=== PATIENT | male | born 1960 | race African-American/Black ===

== ENCOUNTER 2016-12-12 10:30 | Observation (INO) ==
[2016-12-12] MEDS ORDERED: levoFLOXacin 750 MG TABLET PO ONE (10:32)
[2016-12-12] MEDS ORDERED: Ipratropium/Albuterol Neb 3 ML IH ONE (10:32)
[2016-12-12] MEDS ORDERED: Ondansetron 4 MG/2 ML VIAL IVP ONE (10:33)
[2016-12-12] MEDS ORDERED: 0.9 % Sodium Chloride 1,000 ML IVC ONE (10:34)
[2016-12-12 11:27] LABS: Basophils # 0.1 K/mcL (0.0-0.2); Basophils % 0.5 %; Eosinophils # 0.3 K/mcL (0.0-0.6); Eosinophils % 2.1 %; Hematocrit 43.8 % (37.5-50.1); Hemoglobin 14.9 g/dL (12.9-16.9); Immature Granulocytes % 0.3 % (0-4); Lymphocytes # 1.4 K/mcL (0.6-4.6); Lymphocytes % 9.8 %; Mean Corpuscular Hemoglobin 28.6 pg (28.0-33.3); Mean Corpuscular Volume 84.1 fL (83.0-100.0); Mean Platelet Volume 9.9 fL (9.4-12.4); Monocytes # 1.3 K/mcL (0.0-1.3); Monocytes % 8.7 %; Neutrophils # 11.4 K/mcL (1.6-8.9); Platelet Count 284 K/mcL (140-400); Red Blood Count 5.21 M/mcL (4.19-5.50); Red Cell Distribution Width 13.4 % (11.5-14.5); Segmented Neutrophils % 78.6 %
--- NOTE | 2016-12-12 11:30 | Emergency Department Note ---
Disposition Clinical Impression: Bronchitis Chest pain Qualifiers: Chest pain type: unspecified Qualified Code(s): R07.9 - Chest pain, unspecified Disposition: Admitted As Inpatient Condition: Good Time of Disposition: 12:02 General Adult HPI - General Chief complaint: ED Chest Pain Stated complaint: Chest Pain Time Seen by Provider: 12/12/16 10:31 Source: patient, EMS Mode of arrival: EMS Limitations: altered mental status Nursing Notes Reviewed: Yes Vital Signs Reviewed: Yes - History of Present Illness HPI Narrative: 56-year-old male presenting to the emergency department from urgent care for chief complaint of nausea, vomiting and chest pain. History is limited due to patient's altered mental status which is his baseline. Patient does have director social in the room with him who is providing majority of the history. Patient states he has been feeling ill with flulike symptoms of cough nausea vomiting and diffuse myalgia for approximately one week. He has been having intermittent chest pain during this time as well. He got brought to urgent care today when his chest pain got acutely worse and was diaphoretic. Urgent care and transferred him here for cardiac rule out. At this time patient is not having any chest pain or shortness of breath. He does disclose productive cough and subjective fevers but has not taken his temperature at home. Pain Scale: 1 - Related Data Home Medications Medication Instructions Recorded Confirmed Fluphenazine [Prolixin] 10 mg PO HS 08/13/15 12/12/16 [place] Carbonate 300 mg PO TID 08/13/15 12/12/16 OLANZapine [Zyprexa] 10 mg PO TID 08/13/15 12/12/16 OLANZapine [Zyprexa] 20 mg PO HS 08/13/15 12/12/16 Insulin ASPART [Novolog Flexpen] 4 - 8 unit SQ TID PRN 12/12/16 12/12/16 Insulin DETEMIR [Levemir Flextouch] 40 unit SQ BID 12/12/16 12/12/16 Previous Rx's Medication Instructions Recorded Atorvastatin [Lipitor] 40 mg PO HS #30 tablet 08/16/15 Allergies Allergy/AdvReac Type Severity Reaction Status Date / Time No Known Allergies Allergy Verified 08/13/15 19:58 All systems ED: reviewed and negative except as stated. Constitutional: Reports: fever, chills. Denies: weakness Eyes: Reports: as per HPI ENT ED: Reports: as per HPI Cardiovascular: Reports: chest pain. Denies: palpitations, dyspnea on exertion Respiratory: Reports: cough. Denies: dyspnea, wheezes, hemoptysis Gastrointestinal: Reports: nausea, vomiting. Denies: abdominal pain Genitourinary: Reports: as per HPI Musculoskeletal: Reports: as per HPI Integumentary: Denies: rash, abrasion, lesions Neurological: Denies: weakness, numbness, paresthesias Psychiatric: Reports: as per HPI Endocrine: Reports: as per HPI Hematological/Lymphatic: Reports: as per HPI Allergic/Immunologic: Reports: as per HPI Past Medical History - Past Medical History Attestation: Yes The following information was validated with the patient. Medical history: Reports: no medical history Surgical history: Reports: no surgical history Psychiatric history: Reports: schizophrenia, other - Social History Smoking Status: Current every day smoker Smokeless Tobacco Status: No Alcohol use: Reports: none Drug use: Reports: none Physical Exam - General Limitations: altered mental status General appearance: alert, in no apparent distress - Head Head exam: atraumatic, normocephalic, normal inspection - Eye Eye exam: Present: normal appearance. Absent: scleral icterus, conjunctival injection - ENT ENT exam: normal exam, normal oropharynx, mucous membranes moist - Chest Chest inspection: Present: normal inspection, symmetric chest wall rise. Absent : tenderness, rash - Respiratory Respiratory exam: Present: normal lung sounds bilaterally. Absent: respiratory distress, wheezes, stridor - Cardiovascular Cardiovascular exam: Present: normal rhythm, tachycardia, normal heart sounds - Abdominal Exam Abdominal exam: Present: soft, Non-Tender. Absent: distention, guarding, rebound - Extremities Exam Extremities exam: Present: normal inspection, full ROM - Neurological Exam Neurological exam: Present: alert, other (Patient oriented to himself this is baseline for the patient according to director social) - Psychiatric Psychiatric exam: Present: normal affect, anxious - Skin Skin exam: Present: warm, intact Course Course Narrative: 56-year-old male presenting from urgent care for chief complaint of nausea vomiting and diffuse myalgia for 1 week along with chest pain. Chest pain has been intermittent but today he became acutely diaphoretic at urgent care. We will perform a chest pain rule out with troponin, CBC, BMP and EKG. We will provide the patient with breathing treatment and one dose of antibiotics at this time. Disposition pending lab results. - Reevaluation(s) Reevaluation #1: Initial lab work including troponin within normal limits. Patient still having intermittent chest pain. Nitropaste was given. Decision to admit the patient for chest pain rule out. Dr. Lee the hospitalist accepts the patient. Time: 12:02 Vital Signs Temperature 98.7 F 12/12/16 10:31 Pulse Rate 100 12/12/16 10:31 Respiratory Rate 18 12/12/16 10:31 Blood Pressure 156/97 12/12/16 10:31 O2 Sat by Pulse Oximetry 98 12/12/16 10:31 Temperature 99.1 F 12/12/16 19:04 Pulse Rate 107 12/12/16 19:04 Respiratory Rate 16 12/12/16 19:04 Blood Pressure 135/84 12/12/16 19:04 O2 Sat by Pulse Oximetry 94 12/12/16 19:04 Oxygen Delivery Oxygen Delivery Room Air Medical Decision Making - Medical Records Medical records reviewed: Yes I reviewed the patient's medical records. - Lab Data Lab results reviewed: Yes I reviewed the patient's lab results. Result diagrams: 12/12/16 10:42 12/12/16 10:42 Lab Results 12/12/16 12/12/16 12/12/16 Range/Units 10:42 10:42 10:42 WBC 14.4 H (4.3-11.1) K/mcL RBC 5.21 (4.19-5.50) M/mcL Hgb 14.9 (12.9-16.9) g/dL Hct 43.8 (37.5-50.1) % MCV 84.1 (83.0-100.0) fL MCH 28.6 (28.0-33.3) pg MCHC 34.0 (31.6-35.5) g/dL RDW 13.4 (11.5-14.5) % Plt Count 284 (140-400) K/mcL MPV 9.9 (9.4-12.4) fL Immature Gran % 0.3 (0-4) % Seg Neutrophils % 78.6 % Lymphocytes % 9.8 % Monocytes % 8.7 % Eosinophils % 2.1 % Basophils % 0.5 % Neutrophils # 11.4 H (1.6-8.9) K/mcL Lymphocytes # 1.4 (0.6-4.6) K/mcL Monocytes # 1.3 (0.0-1.3) K/mcL Eosinophils # 0.3 (0.0-0.6) K/mcL Basophils # 0.1 (0.0-0.2) K/mcL Sodium 137 (136-145) mEq/L Potassium 4.3 (3.5-4.5) mEq/L Chloride 106 (98-109) mEq/L Carbon Dioxide 24 (19-29) mEq/L BUN 9 (8-26) mg/dL Creatinine 1.22 (0.72-1.25) mg/dL Est GFR ( Amer) > 60 (> 60) Est GFR (Non-Af Amer) > 60 (> 60) BUN/Creatinine Ratio 7 (6-26) Glucose 227 H (70-99) mg/dL Est Mean Plasma Glucose mg/dl Hemoglobin A1c ( - 5.6) % Calculated Osmolality 290 (280-300) Calcium 9.7 (8.6-10.8) mg/dL Total Bilirubin 0.4 (0.2-1.2) mg/dL Direct Bilirubin 0.2 (0.0-0.5) mg/dL Indirect Bilirubin 0.2 (0.0-1.2) mg/dL AST 15 (5-34) Units/L ALT 25 (0-55) Units/L Alkaline Phosphatase 150 H (38-126) Units/L Troponin I 0.00 (0-0.03) ng/mL C-Reactive Protein 28 H (Less than 5) mg/L Serum Total Protein 6.9 (6.0-8.3) g/dL Albumin 3.6 (3.5-5.0) g/dL Globulin 3.3 (2.4-3.5) g/dL Albumin/Globulin Ratio 1.1 (1.1-2.2) Amylase 101 (25-125) Units/L Lipase 10 (8-78) Units/L 12/12/ Range/Units 10:42 WBC (4.3-11.1) K/mcL RBC (4.19-5.50) M/mcL Hgb (12.9-16.9) g/dL Hct (37.5-50.1) % MCV (83.0-100.0) fL MCH (28.0-33.3) pg MCHC (31.6-35.5) g/dL RDW (11.5-14.5) % Plt Count (140-400) K/mcL MPV (9.4-12.4) fL Immature Gran % (0-4) % Seg Neutrophils % % Lymphocytes % % Monocytes % % Eosinophils % % Basophils % % Neutrophils # (1.6-8.9) K/mcL Lymphocytes # (0.6-4.6) K/mcL Monocytes # (0.0-1.3) K/mcL Eosinophils # (0.0-0.6) K/mcL Basophils # (0.0-0.2) K/mcL Sodium (136-145) mEq/L Potassium (3.5-4.5) mEq/L Chloride (98-109) mEq/L Carbon Dioxide (19-29) mEq/L BUN (8-26) mg/dL Creatinine (0.72-1.25) mg/dL Est GFR ( Amer) (> 60) Est GFR (Non-Af Amer) (> 60) BUN/Creatinine Ratio (6-26) Glucose (70-99) mg/dL Est Mean Plasma Glucose 154 mg/dl Hemoglobin A1c 7.0 H ( - 5.6) % Calculated Osmolality (280-300) Calcium (8.6-10.8) mg/dL Total Bilirubin (0.2-1.2) mg/dL Direct Bilirubin (0.0-0.5) mg/dL Indirect Bilirubin (0.0-1.2) mg/dL AST (5-34) Units/L ALT (0-55) Units/L Alkaline Phosphatase (38-126) Units/L Troponin I (0-0.03) ng/mL C-Reactive Protein (Less than 5) mg/L Serum Total Protein (6.0-8.3) g/dL Albumin (3.5-5.0) g/dL Globulin (2.4-3.5) g/dL Albumin/Globulin Ratio (1.1-2.2) Amylase (25-125) Units/L Lipase (8-78) Units/L - Radiology Data Radiology results reviewed: Yes I reviewed the patient's radiology results. - EKG Data EKG #1 EKG attestation: Yes I reviewed and interpreted this EKG. EKG results narrative: 104 bpm. Sinus tachycardia. Normal axis. LA interval 178, QRS 84, QTC 372. No signs of acute ischemia or ST segment elevation. Attestation Statement - Attestation Attestation: I examined this patient and my medical decision-making was reviewed with the Resident Physician. I agree with the documented findings, disposition and treatment plan as described except to the extent set forth below. 56-year-old male who presents from half-way with concern for chest pain. He is additionally having nausea. He has cough and flulike symptoms. He has no abdominal pain. He was treated for bronchitis, cardiac biomarkers will be trended. The patient be admitted due to risk factors as well as the typical nature of his chest pain.
[2016-12-12 11:37] LABS: BUN/Creatinine Ratio 7 (6-26); Blood Urea Nitrogen 9 mg/dL (8-26); Calcium 9.7 mg/dL (8.6-10.8); Carbon Dioxide 24 mEq/L (19-29); Chloride 106 mEq/L (98-109); Glucose 227 mg/dL (70-99); Osmolality,Calculated 290 (280-300); Potassium 4.3 mEq/L (3.5-4.5); Sodium 137 mEq/L (136-145); eGFR For African Americans > 60 (> 60); eGFR For Non-African Americans > 60 (> 60)
[2016-12-12 12:22] LABS: Alanine Aminotransferase 25 Units/L (0-55); Albumin 3.6 g/dL (3.5-5.0); Albumin/Globulin Ratio 1.1 (1.1-2.2); Alkaline Phosphatase 150 Units/L (38-126); Amylase 101 Units/L (25-125); Aspartate Amino Transferase 15 Units/L (5-34); Bilirubin,Direct 0.2 mg/dL (0.0-0.5); Bilirubin,Indirect 0.2 mg/dL (0.0-1.2); Bilirubin,Total 0.4 mg/dL (0.2-1.2); C-Reactive Protein 28 mg/L (Less than 5); Globulin 3.3 g/dL (2.4-3.5); Lipase 10 Units/L (8-78); Total Protein 6.9 g/dL (6.0-8.3)
[2016-12-12] MEDS ORDERED: *HR* Propofol 200 MG/20 ML VIAL IVP ONE (12:29)
[2016-12-12] MEDS ORDERED: *HR* Promethazine 25 MG/ML VIAL IVP PRN (12:47)
[2016-12-12] MEDS ORDERED: Ondansetron 4 MG/2 ML VIAL IVP PRN (12:47)
[2016-12-12] MEDS ORDERED: *HR* Morphine 2 MG/ML SYRINGE IVP PRN (12:47)
[2016-12-12] MEDS ORDERED: Naloxone 0.4 MG/ML INJ IVP PRN (12:47)
[2016-12-12] MEDS ORDERED: *HR* Dextrose 50 % in Water (Syg) 50 ML SYRINGE IVP PRN (12:50)
[2016-12-12] MEDS ORDERED: Dextrose Gel 15 GM PO PRN ×2 (12:50)
[2016-12-12] MEDS ORDERED: D5% in Water 1,000 ML IVC PRN (12:50)
[2016-12-12] MEDS ORDERED: *HR* LORazepam 2 MG/ML VIAL IVP PRN (12:52)
[2016-12-12] MEDS ORDERED: GI Cocktail 40 ML EACH PO ONE (13:02)
--- NOTE | 2016-12-12 13:08 | Event Note ---
Date of Encounter: 12/12/16 Time of Encounter: 13:06 Patient seen and examined with nurse practitioner. Agree with assessment and plan. Patient presents with a main cmplain of vomiting epigastric and chest pain. Vomiting brownish color reportedly, so will start patient on IV protonix. Gastroenterology consultation. He has a CRP of 28 and white count 14 ,000. His abdomen is benign on exam. We will get CT scan abdomen and pelvis
--- NOTE | 2016-12-12 13:20 | Internal Med History&Physical ---
Date of Encounter: 12/12/16 Time of Encounter: 13:12 Assessment and Plan (1) Type 2 diabetes mellitus Current visit: Yes Status: Acute Patient is NPO Give half dose of long acting levemir 20u HS (home dose is 40u BID) check blood sugars Q6hr sliding scale correction dose Q6hr hypoglycemic protocol. Qualifiers: Diabetes mellitus complication status: without complication Diabetes mellitus assisted insulin use: with termite technician use Qualified Code(s): E11.9 - Type 2 diabetes mellitus without complications; Z79.4 - termite helper (current) use of insulin; Z79.4 - [facility] (current) use of insulin; Z79.4 - [facility] ( current) use of insulin; Z79.4 - [facility] (current) use of insulin (2) Nausea and vomiting Current visit: Yes Status: Acute Patient vomiting reddish brown liquid, despite being given zofran. Zofran and phenergan PRN IV fluids 0.9NS at 125mL/hr NPO CT abd/pelvis with oral contrast protonix 40mg IVP BID with concern for possible bleed, will check H/H in 8 hours consult to gastroenterology, spoke with [facility], they plan to see patient tomorrow. Qualifiers: Vomiting type: unspecified Vomiting Intractability: intractable Qualified Code(s): R11.2 - Nausea with vomiting, unspecified (3) Chest pain Current visit: Yes Status: Acute Patient reporting intermittent chest pain, worse during and after vomiting episodes. EKG showed sinus tachycardia with no ischemic changes. Troponin negative. Likely secondary to GERD or esophagitis, but will rule out ACS. Continuous traffic monitor specialist serial troponins. Qualifiers: Chest pain type: unspecified Qualified Code(s): R07.9 - Chest pain, unspecified (4) Smoker Current visit: Yes Status: Acute Encouraged smoking cessation. Smoking cessation education and nicotine patch ordered. (5) Schizophrenia Current visit: Yes Status: Acute Continue home doses of medications. Qualifiers: Schizophrenia type: unspecified Qualified Code(s): F20.9 - Schizophrenia, unspecified (6) DVT prophylaxis Current visit: Yes Status: Acute sequential compression devices with concern for possible GI bleed, pharmacologic prophylaxis is contraindicated. Internal Medicine - H&P: HPI Chief complaint: nausea, vomiting, chest pain Admitted From: Emergency Dept Plans for Post Hospital Care: Home History of present illness: Mr. Hernadez is a 56 year old male with type 2 diabetes and schizophrenia who resides in a facility was sent to ED today from Urgent Care with complaints of chest pain, nausea and vomiting. Patient reports Upper respiratory infection with sinus pressure, coughing and congestion for the last week. He also reports intermittent chest pain. He started vomiting last evening with the chest pain being worse during and after vomiting episodes. Patient is unable to articulate the quality of the chest pain. He describes the vomit as reddish brown. He reports one episode of diarrhea 2 days ago, none since. He denies abdominal pain. He denies headache, lightheadedness, fever or chills. He does describe sweats and occasional shortness of breath. Evaluation in the ED included ekg which showed sinus tachycardia, HR 104. Troponin was negative at 0.0. CXR showed no acute findings. WBC count was elevated at 14.4. CRP was also elevated. He was given Levaquin, zofran, duoneb, mucinex, nitro, 1L bolus in the ED. On exam, patient was mildly diaphoretic and vomited several times during my assessment. Emesis was reddish brown liquid. Heart had regular rhythm with tachycardic rate. Lungs were clear to auscultation bilaterally. Abdomen was non-tender, soft, with positive bowel sounds. Past Med Surg Social Fam HX - Past Medical History Medical history: diabetes Psychiatric history: schizophrenia, other - Past Surgical History Surgical History: no surgical history - Social History Smoking Status: Current every day smoker Smokeless Tobacco Status: No Alcohol use: none Drug use: none Internal Medicine - H&P: Meds Fluphenazine [Prolixin] 10 mg PO HS 08/13/15 [History] [place] Carbonate 300 mg PO TID 08/13/15 [History] OLANZapine [Zyprexa] 10 mg PO TID 08/13/15 [History] OLANZapine [Zyprexa] 20 mg PO HS 08/13/15 [History] Atorvastatin [Lipitor] 40 mg PO HS #30 tablet 08/16/15 [Rx] Insulin ASPART [Novolog Flexpen] 4 - 8 unit SQ TID PRN 12/12/16 [History] Insulin DETEMIR [Levemir Flextouch] 40 unit SQ BID 12/12/16 [History] 3 Allergy/AdvReac Type Severity Reaction Status Date / Time No Known Allergies Allergy Verified 08/13/15 19:58 All Systems PM: A 10-system review of systems was performed and is negative for pertinent findings except as documented above in the HPI. - Constitutional Constitutional: no chills, no fever(s), no night sweats - EENT Eyes: no change in vision, no discharge, no pain, no photophobia Ears: no ear discharge, no ear pain, no tinnitus Nose, mouth and throat: nasal congestion, nasal discharge, no dysphagia, no neck pain, no sore throat - Cardiovascular Cardiovascular ROS IM: chest pain, diaphoresis, dyspnea, no lightheadedness, no palpitations, no syncope - Respiratory Respiratory: cough, dyspnea, excessive phlegm production, no wheezing - Gastrointestinal Gastrointestinal: nausea, vomiting, no abdominal pain, no diarrhea, no hematemesis, no hematochezia, no melena - Musculoskeletal Musculoskeletal ROS IM: no numbness, no tingling - Integumentary Integumentary IM: no rash, no unusual bruising - Neurological Neurological ROS: no confusion, no convulsions, no focal weakness, no numbness, no tingling, no tremor(s) - Hematologic/Lymphatic Hematologic/Lymphatic: no easy bruising - Constitutional Vitals: Temp Pulse Resp BP Pulse Ox 98.7 F 108 18 187/105 96 12/12/16 10:31 12/12/16 11:37 12/12/16 12:44 12/12/16 12:44 12/12/16 11:37 General appearance: Present: A&O X 2, pleasant - Head Head exam: Present: atraumatic, normocephalic - Eye Eye exam: Present: PERRL, conjuntiva pink, sclera anicteric Pupils: Present: PERRL - Neck Neck exam general surgery: Present: supple, trachea midline. Absent: lymphadenopathy - Respiratory Respiratory exam: Present: CTAB. Absent: accessory muscle use, rales, rhonchi, wheezes - Cardiovascular Cardiovascular exam: Present: RRR, +S1, +S2. Absent: diastolic murmur, gallop, rubs, systolic murmur - GI/Abdominal GI/Abdominal exam: Present: normal bowel sounds, soft, no peritoneal signs. Absent: distended, tenderness - Extremities Exam Extremities exam: Present: warm, radial pulses palpable and symmetrical. Absent : calf tenderness, cyanotic, pedal edema - Neurological Exam Neurological exam: Present: CN II-XII intact, oriented X3, no focal deficits. Absent: pronater drift, facial droop, speech deficit - Skin Skin exam: Present: diaphoretic, intact Internal Med - H&P Results - Labs CBC & Chem 7: 12/12/16 10:42 12/12/16 10:42 Labs: All Lab Results (24 Hours) 12/12/16 12/12/16 12/12/16 Range/Units 10:42 10:42 10:42 WBC 14.4 H (4.3-11.1) K/mcL RBC 5.21 (4.19-5.50) M/mcL Hgb 14.9 (12.9-16.9) g/dL Hct 43.8 (37.5-50.1) % MCV 84.1 (83.0-100.0) fL MCH 28.6 (28.0-33.3) pg MCHC 34.0 (31.6-35.5) g/dL RDW 13.4 (11.5-14.5) % Plt Count 284 (140-400) K/mcL MPV 9.9 (9.4-12.4) fL Immature Gran % 0.3 (0-4) % Seg Neutrophils % 78.6 % Lymphocytes % 9.8 % Monocytes % 8.7 % Eosinophils % 2.1 % Basophils % 0.5 % Neutrophils # 11.4 H (1.6-8.9) K/mcL Lymphocytes # 1.4 (0.6-4.6) K/mcL Monocytes # 1.3 (0.0-1.3) K/mcL Eosinophils # 0.3 (0.0-0.6) K/mcL Basophils # 0.1 (0.0-0.2) K/mcL Sodium 137 (136-145) mEq/L Potassium 4.3 (3.5-4.5) mEq/L Chloride 106 (98-109) mEq/L Carbon Dioxide 24 (19-29) mEq/L BUN 9 (8-26) mg/dL Creatinine 1.22 (0.72-1.25) mg/dL Est GFR ( Amer) > 60 (> 60) Est GFR (Non-Af Amer) > 60 (> 60) BUN/Creatinine Ratio 7 (6-26) Glucose 227 H (70-99) mg/dL Calculated Osmolality 290 (280-300) Calcium 9.7 (8.6-10.8) mg/dL Total Bilirubin 0.4 (0.2-1.2) mg/dL Direct Bilirubin 0.2 (0.0-0.5) mg/dL Indirect Bilirubin 0.2 (0.0-1.2) mg/dL AST 15 (5-34) Units/L ALT 25 (0-55) Units/L Alkaline Phosphatase 150 H (38-126) Units/L Troponin I 0.00 (0-0.03) ng/mL C-Reactive Protein 28 H (Less than 5) mg/L Serum Total Protein 6.9 (6.0-8.3) g/dL Albumin 3.6 (3.5-5.0) g/dL Globulin 3.3 (2.4-3.5) g/dL Albumin/Globulin Ratio 1.1 (1.1-2.2) Amylase 101 (25-125) Units/L Lipase 10 (8-78) Units/L - Diagnostic Studies Chest x-ray Additional comments: Chest X-Ray 12/12/16 10:33 IMPRESSION: No acute findings. D/ / Rupal Pisano MD / Rupal Pisano MD Interpreting Provider: Rupal Pisano MD
[2016-12-12] MEDS: 0.9 % Sodium Chloride 1,000 ML IVC SCH (14:33)
[2016-12-12] MEDS: Lithium Carbonate 300 MG CAPSULE PO SCH ×2 (14:34→23:02)
[2016-12-12] MEDS: Nicotine 21 MG PATCH.TD24 TD SCH (14:34)
[2016-12-12] MEDS: Pantoprazole 40 MG VIAL IVP SCH ×2 (14:34→18:46)
[2016-12-12] MEDS ORDERED: OLANZapine 10 MG TAB.RAPDIS PO SCH (15:00)
[2016-12-12] MEDS: Insulin LISPRO 300 UNITS/3 ML VIAL SQ SCH (18:48)
--- NOTE | 2016-12-12 19:10 | Electrocardiograph Report ---
[place] [id number] Test Date: 2016-12-12 Pat Name: Cresencio Hernadez Department: 102 Room: 3B45 Gender: M Control Valve Technician: Manuela : 1960 Requested By: Yessy Castro Order Number: [id number] Reading MD: Den Lorenz MD Measurements Intervals [place] Rate: 104 P: 72 RI: 178 QRS: 70 QRSD: 84 T: 23 QT: 312 QTc: 372 Interpretive Statements SINUS TACHYCARDIA Electronically Signed On 12-12-2016 19:09:16 EDT by Den Lorenz MD
[2016-12-12 21:12] LABS: Hematocrit 39.7 % (37.5-50.1); Hemoglobin 13.7 g/dL (12.9-16.9)
[2016-12-12] MEDS: OLANZapine 10 MG TAB.RAPDIS PO SCH (23:03)
[2016-12-13] MEDS: Pantoprazole 40 MG VIAL IVP SCH ×2 (06:14→16:40)
[2016-12-13 06:29] LABS: Basophils # 0.1 K/mcL (0.0-0.2); Basophils % 0.4 %; Eosinophils # 0.2 K/mcL (0.0-0.6); Eosinophils % 1.8 %; Hemoglobin 13.2 g/dL (12.9-16.9); Immature Granulocytes % 0.5 % (0-4); Immature Platelets 3.4 % (1.1-6.1); Lymphocytes # 1.2 K/mcL (0.6-4.6); Lymphocytes % 9.8 %; Mean Corpuscular HGB Conc 33.8 g/dL (31.6-35.5); Mean Corpuscular Hemoglobin 28.9 pg (28.0-33.3); Mean Corpuscular Volume 85.3 fL (83.0-100.0); Monocytes # 1.3 K/mcL (0.0-1.3); Monocytes % 10.6 %; Neutrophils # 9.5 K/mcL (1.6-8.9); Platelet Count 247 K/mcL (140-400); Red Blood Count 4.57 M/mcL (4.19-5.50); Red Cell Distribution Width 13.6 % (11.5-14.5); Segmented Neutrophils % 76.9 %
[2016-12-13 06:43] LABS: BUN/Creatinine Ratio 8 (6-26); Blood Urea Nitrogen 9 mg/dL (8-26); Calcium 8.7 mg/dL (8.6-10.8); Carbon Dioxide 23 mEq/L (19-29); Chloride 109 mEq/L (98-109); Chol/HDL Ratio 4.4 (0-4.9); Cholesterol 110 mg/dL (< 200); Glucose 178 mg/dL (70-99); HDL Cholesterol 25 mg/dL (40-59); LDL Cholesterol,Calculated 62 mg/dL (0-99); Osmolality,Calculated 289 (280-300); Potassium 4.1 mEq/L (3.5-4.5); Sodium 138 mEq/L (136-145); Triglycerides 117 mg/dL (< 150); eGFR For African Americans > 60 (> 60); eGFR For Non-African Americans > 60 (> 60)
[2016-12-13] MEDS: Insulin DETEMIR 100 UNIT/ML X5UNITS SQ SCH ×2 (07:46→22:57)
[2016-12-13] MEDS: Insulin LISPRO 300 UNITS/3 ML VIAL SQ SCH ×4 (10:28→17:27)
[2016-12-13] MEDS: 0.9 % Sodium Chloride 1,000 ML IVC SCH ×2 (10:28→16:28)
[2016-12-13] MEDS: Nitroglycerin 0.2 MG PATCH.TD24 TD SCH (10:43)
[2016-12-13] MEDS: Nicotine 21 MG PATCH.TD24 TD SCH (10:45)
[2016-12-13] MEDS: OLANZapine 10 MG TAB.RAPDIS PO SCH ×2 (10:45→22:58)
[2016-12-13] MEDS: Lithium Carbonate 300 MG CAPSULE PO SCH ×3 (10:45→22:57)
--- NOTE | 2016-12-13 12:05 | Gastroenterology Consult Note ---
<Barb Peralta - Last Filed: 12/13/16 12:00> Date of Encounter: 12/13/16 Time of Encounter: 10:00 - Assessment and plan (1) Esophageal abnormality Current Visit: Yes Status: Acute Assessment and plan: CT abdomen shows thickening of distal esophagus. He has been started on protonix. He denies dysphagia or GERD symptoms. Thickening may be related to GERD but he needs EGD to rule out malignancy. (2) Nausea & vomiting Current Visit: Yes Status: Acute Assessment and plan: Improved on zofran, phenergan and protonix. Scheduled for EGD today. Qualifiers: Vomiting type: hematemesis Qualified Code(s): K92.0 - Hematemesis - Time Spent With Patient Total time spent is greater than 50% in coordination of care (as documented) at patient's floor/unit and/or counseling patient: GI History of Present Illness - Data of Consult Patient: new to practice Consult date: 12/13/16 Requesting Physician: Dewey Ellis MD - Consult Narrative Reason for consult: vomiting/bloody emesis History of present illness: Mr. Hernadez is a 56 year old male who presented with chest pain and nausea and vomiting. He has a past medical history of DM and schizophrenia. He presented with cold symptoms x 3 days, chest pain and nausea and vomiting x 7 yesterday with reddish brown emesis. He denies diarrhea or constipation. He had BM yesterday. He denies any dysphagia or odynophagia. CT abdomen showed thickening of distal esophagus. He admits to drinking a beer 3-4 times a week, he denies any elicit drug use. He does smoke. Colonoscopy: ~10 years ago at [place] EGD: denies NSAIDS: denies ASA: denies Anticougulants: denies Past Med Surg Social Fam HX - Past Medical History Medical history: no medical history Psychiatric history: schizophrenia, other - Past Surgical History Surgical History: no surgical history - Social History Smoking Status: Current every day smoker Smokeless Tobacco Status: No Alcohol use: none Drug use: none Review of Systems: GI: as per [facility] GENERAL: denies fever, has some chills EYES: denies yellow discoloration ENT: denies pain with swallowing or difficulty swallowing CARDIO: had some chest pain, better now, no palpitations RESP: No Shortness of breath with exertion : denies change in color of urine NEURO: denies any weakness HEME: Denies any bruising MS: denies joint pain, joint swelling or back pain. DERM: denies rash or itching PSYCH: history of schizophrenia, anxiety and depression - Constitutional Vitals: Temp Pulse Resp BP Pulse Ox 99.1 F 94 18 148/82 94 12/13/16 11:39 12/13/16 11:39 12/13/16 11:39 12/13/16 11:39 12/13/16 11:39 Exam: CONSTITUTIONAL:~alert, no acute distress.~HEAD:~normocephalic.~EYES:~no jaundice.~NECK:~no obvious swelling.~HEART:~regular rate and rhythm, no murmurs. ~LUNGS:~bilateral good air entry.~ABDOMEN:~non distended, soft, non tender, no masses pulpable, no organomegaly.~RECTAL EXAM:~Deferred.~EXTREMITIES:~no clubbing, cyanosis or edema.~SKIN:~no stigmata of chronic liver disease.~ NEUROLOGIC:~no obvious focal defect.~~~~ Results - Labs CBC & Chem 7: 12/13/16 05:36 12/13/16 05:36 Labs: Last Result Calcium 8.7 mg/dL (8.6-10.8) 12/13/16 05:36 Troponin I 0.00 ng/mL (0-0.03) 12/12/16 22:37 C-Reactive Protein 28 mg/L (Less than 5) H 12/12/16 10:42 Triglycerides 117 mg/dL (< 150) 12/13/16 05:36 Entire Visit Hgb 13.2 g/dL (12.9-16.9) 12/13/16 05:36 Hct 39.0 % (37.5-50.1) 12/13/16 05:36 Total Bilirubin 0.4 mg/dL (0.2-1.2) 12/12/16 10:42 AST 15 Units/L (5-34) 12/12/16 10:42 ALT 25 Units/L (0-55) 12/12/16 10:42 Amylase 101 Units/L (25-125) 12/12/16 10:42 Lipase 10 Units/L (8-78) 12/12/16 10:42 - Impressions Impressions Abdomen/Pelvis CT 12/12/16 16:00 IMPRESSION: 1. Circumferential soft tissue thickening and induration of the distal esophagus, likely secondary to esophagitis. Correlation with upper endoscopy is recommended. 2. Soft tissue induration of the anterior abdomen. Correlation for recent trauma or prior surgery is suggested. No soft tissue fluid collection or gas. D/ / Frederick Yan MD / Frederick Yan MD Interpreting Provider: Frederick Yan MD Consult Discharge Plan - Plan Referrals: Marcial Adams MD [Primary Care Provider] - 12/18/16 10:30 am <[email or web address] - Last Filed: 12/13/16 21:17> Date of Encounter: 12/13/16 Time of Encounter: 14:20 - Time Spent With Patient Total time spent is greater than 50% in coordination of care (as documented) at patient's floor/unit and/or counseling patient: GI History of Present Illness - Data of Consult Requesting Physician: Dewey Ellis MD - Consult Narrative History of present illness: Mr. Hernadez is a 56 year old male - Constitutional Vitals: Temp Pulse Resp BP Pulse Ox 98.9 F 85 20 125/75 94 12/13/16 18:54 12/13/16 18:54 12/13/16 18:54 12/13/16 18:54 12/13/16 18:54 Results - Labs CBC & Chem 7: 12/13/16 05:36 12/13/16 05:36 Labs: Last Result Calcium 8.7 mg/dL (8.6-10.8) 12/13/16 05:36 Troponin I 0.00 ng/mL (0-0.03) 12/12/16 22:37 C-Reactive Protein 28 mg/L (Less than 5) H 12/12/16 10:42 Triglycerides 117 mg/dL (< 150) 12/13/16 05:36 Entire Visit Hgb 13.2 g/dL (12.9-16.9) 12/13/16 05:36 Hct 39.0 % (37.5-50.1) 12/13/16 05:36 Total Bilirubin 0.4 mg/dL (0.2-1.2) 12/12/16 10:42 AST 15 Units/L (5-34) 12/12/16 10:42 ALT 25 Units/L (0-55) 12/12/16 10:42 Amylase 101 Units/L (25-125) 12/12/16 10:42 Lipase 10 Units/L (8-78) 12/12/16 10:42 - Attending Attestation I examined this patient and my medical decision-making was reviewed with the Resident Physician. I agree with the documented findings, disposition and treatment plan as described except to the extent set forth below.
--- NOTE | 2016-12-13 14:02 | Internal Med Progress Note ---
Date of Encounter: 12/13/16 Time of Encounter: 09:20 - Assessment and plan (1) Esophageal abnormality Current Visit: Yes Status: Acute Assessment and plan: Concerning for esophagitis or esophageal mass. Plan for upper GI endoscopy per GI recommendations. Continue PPI. Moderate risk for complications. (2) Chest pain Current Visit: Yes Status: Acute Assessment and plan: Likely from esophagitis. Troponins have been negative. Continue supportive care and pain control. Qualifiers: Chest pain type: other chest pain Qualified Code(s): R07.89 - Other chest pain; R07.8 - Other chest pain (3) Type 2 diabetes mellitus Current Visit: Yes Status: Chronic Assessment and plan: Currently nothing by mouth for possible upper GI endoscopy. Continue to monitor blood sugars. Place on diabetic diet. Patient is able to tolerate food. Continue sliding scale insulin. Qualifiers: Diabetes mellitus complication status: without complication Diabetes mellitus terminal gauger insulin use: with correction use Qualified Code(s): E11.9 - Type 2 diabetes mellitus without complications; Z79.4 - longterm (current) use of insulin; Z79.4 - longterm (current) use of insulin; Z79.4 - dedicated intermodal truck driver ( current) use of insulin; Z79.4 - dedicated intermodal truck driver (current) use of insulin (4) Smoker Current Visit: Yes Status: Chronic Assessment and plan: Nicotine patch (5) DVT prophylaxis Current Visit: Yes Status: Acute Assessment and plan: With SCDs (6) Schizophrenia Current Visit: Yes Status: Chronic Assessment and plan: Continue home medications. Symptoms are controlled Qualifiers: Schizophrenia type: unspecified Qualified Code(s): F20.9 - Schizophrenia, unspecified (7) Nausea & vomiting Current Visit: Yes Status: Acute Assessment and plan: Improved. No new episodes of emesis today. Qualifiers: Vomiting type: hematemesis Qualified Code(s): K92.0 - Hematemesis - Subjective Interval history: Patient is lying in bed. Appears comfortable. Denies any nausea or vomiting today. Continues to have some abdominal pain mainly in the epigastric region and lower chest. Denies any fever or chills. No hematemesis. No melena. - Constitutional Vitals: Temp Pulse Resp BP Pulse Ox 99.1 F 94 18 148/82 94 12/13/16 11:39 12/13/16 11:39 12/13/16 11:39 12/13/16 11:39 12/13/16 11:39 General appearance: Present: A&O X 2, pleasant, answers questions appropriately - Respiratory Respiratory exam: Present: CTAB. Absent: accessory muscle use, rales, rhonchi, wheezes - Cardiovascular Cardiovascular exam: Present: RRR, +S1, +S2. Absent: diastolic murmur, gallop, rubs, systolic murmur - GI/Abdominal GI/Abdominal exam: Present: normal bowel sounds, soft, tenderness (epigastric), no peritoneal signs. Absent: distended - Extremities Exam Extremities exam: Present: warm, radial pulses palpable and symmetrical. Absent : calf tenderness, cyanotic, pedal edema - Neurological Exam Neurological exam: Present: alert, oriented X3, no focal deficits. Absent: facial droop, speech deficit Internal Medicine: Result - Labs CBC & Chem 7: 12/13/16 05:36 12/13/16 05:36 Labs: Short CBC 12/12/16 12/13/16 Range/Units 20:31 05:36 WBC 12.3 H (4.3-11.1) K/mcL Hgb 13.7 13.2 (12.9-16.9) g/dL Hct 39.7 39.0 (37.5-50.1) % Plt Count 247 (140-400) K/mcL Neutrophils # 9.5 H (1.6-8.9) K/mcL BMP 12/13/16 05:36 Sodium 138 Potassium 4.1 Chloride 109 Carbon Dioxide 23 BUN 9 Creatinine 1.19 Glucose 178 H Calcium 8.7 Cardiac Enzymes 12/12/16 12/12/16 Range/Units 16:33 22:37 Troponin I 0.01 0.00 (0-0.03) ng/mL - Impressions Impressions Abdomen/Pelvis CT 12/12/16 16:00 IMPRESSION: 1. Circumferential soft tissue thickening and induration of the distal esophagus, likely secondary to esophagitis. Correlation with upper endoscopy is recommended. 2. Soft tissue induration of the anterior abdomen. Correlation for recent trauma or prior surgery is suggested. No soft tissue fluid collection or gas. D/ / Frederick Yan MD / Frederick Yan MD Interpreting Provider: Frederick Yan MD Consult Discharge Plan - Plan Referrals: Marcial Adams MD [Primary Care Provider] - 12/18/16 10:30 am
[2016-12-13] MEDS ORDERED: Simethicone 40 MG/0.6 ML MLS IR ONE (14:24)
[2016-12-13] MEDS ORDERED: Tetracaine/Benzocaine/Butamben 200MG/SPRAY (100SPY/BOT) MM ONE (14:24)
--- NOTE | 2016-12-13 14:39 | Anesthesia Evaluation PreOp ---
Date of Encounter: 12/13/16 Time of Encounter: 14:37 - Past History Planned Operation: EGD (poss bleed) Cardiac History: Denies any Significant Hx Pulmonary History: Smoker HELP DESK ENGINEER History: Other (Schizophrenia) Other Medical History: Diabetes Type II (insulin dependent) Anesthesia History: No Prior Anesthetic Complications Alcohol Use: none Drug use: none Medications and Allergies Fluphenazine [Prolixin] 10 mg PO HS 08/13/15 [History] [place] Carbonate 300 mg PO TID 08/13/15 [History] OLANZapine [Zyprexa] 10 mg PO TID 08/13/15 [History] OLANZapine [Zyprexa] 20 mg PO HS 08/13/15 [History] Atorvastatin [Lipitor] 40 mg PO HS #30 tablet 08/16/15 [Rx] Insulin ASPART [Novolog Flexpen] 4 - 8 unit SQ TID PRN 12/12/16 [History] Insulin DETEMIR [Levemir Flextouch] 40 unit SQ BID 12/12/16 [History] 3 Allergy/AdvReac Type Severity Reaction Status Date / Time No Known Allergies Allergy Verified 08/13/15 19:58 - Meds/Allergy Pre-op Review Medications Reviewed: Yes Allergies Reviewed: Yes Beta Blockers on Current Med List: No Anesthesia Results - Labs 12/13/16 05:36 12/13/16 05:36 - Imaging EKG: report reviewed, image reviewed (ST) Anesthesia Exam Last Vital Signs Temp 99.1 F 12/13/16 11:39 Pulse 95 12/13/16 14:20 Resp 18 12/13/16 14:20 BP 130/92 12/13/16 14:20 Pulse Ox 95 12/13/16 14:20 NPO (# of Hours): >> 8 hrs - HEENT Pupil (Motor): Pupils equal, EOMI Mallampati: III Teeth: Normal Oral Opening: Greater than 3 - HELP DESK ENGINEER LOC: Oriented HELP DESK ENGINEER Motor: Normal RUE, Normal LUE, Normal RLE, Normal LLE, Normal Face - Cardiac Rhythm: Regular Murmur: None - Pulmonary Breath Sounds: bilateral Clear Respiratory Effort: Symmetrical Anesthesia Assess/Plan ASA Score: 3 Modified Bright Scale for Level of Consciousness: Cooperative, oriented, and tranquil Anesthetic Plan: MAC Monitoring Plan: Standard Monitors Recovery Plan: PACU
--- NOTE | 2016-12-13 15:38 | Anesthesia Evaluation Post Op ---
Date of Encounter: 12/13/16 Time of Encounter: 15:37 - Vital Signs Vital Signs: 3 Vital Signs Time 1535 BP 139/82 Pulse 76 Resp 24 O2 Sat 95 - Lungs Lungs: Clear Ascult./Percussion - Airway Airway: Non-obstructed - Cardiovascular Regular Rate - Mental Status Mental Status: Alert & Oriented, Answers Appropriately - Pain Pain Scale: 0 Pain Scale used: Numeric (1 - 10) - Nausea Vomiting Nausea Vomiting: Not Present - Hydration Hydration: NPO, Has not voided - Discharge PostOp Status: Transfer Patient to floor
[2016-12-14] MEDS: 0.9 % Sodium Chloride 1,000 ML IVC SCH ×2 (01:04→09:21)
[2016-12-14] MEDS: Pantoprazole 40 MG VIAL IVP SCH (06:08)
[2016-12-14] MEDS ORDERED: Insulin LISPRO 300 UNITS/3 ML VIAL SQ SCH ×2 (08:00→21:00)
[2016-12-14] MEDS: Insulin LISPRO 300 UNITS/3 ML VIAL SQ SCH ×2 (09:19→12:29)
[2016-12-14] MEDS: Nitroglycerin 0.2 MG PATCH.TD24 TD SCH (09:22)
[2016-12-14] MEDS: Lithium Carbonate 300 MG CAPSULE PO SCH (09:23)
[2016-12-14] MEDS: Nicotine 21 MG PATCH.TD24 TD SCH (09:23)
[2016-12-14] MEDS: OLANZapine 10 MG TAB.RAPDIS PO SCH (09:23)
--- NOTE | 2016-12-14 11:08 | Discharge Summary ---
Date of Encounter: 12/14/16 Time of Encounter: 08:50 - Discharge Diagnosis (1) Erosive esophagitis Priority: Primary Status: Acute (2) Esophageal abnormality Priority: Secondary Status: Acute (3) Chest pain Priority: Secondary Status: Acute Qualifiers: Chest pain type: other chest pain Qualified Code(s): R07.89 - Other chest pain; R07.8 - Other chest pain (4) Type 2 diabetes mellitus Priority: Secondary Status: Chronic Qualifiers: Diabetes mellitus complication status: without complication Diabetes mellitus extermination inspector insulin use: with group home use Qualified Code(s): E11.9 - Type 2 diabetes mellitus without complications; Z79.4 - nursing home (current) use of insulin; Z79.4 - nursing home (current) use of insulin; Z79.4 - nursing home ( current) use of insulin; Z79.4 - nursing home (current) use of insulin (5) Smoker Priority: Secondary Status: Chronic (6) DVT prophylaxis Priority: Secondary Status: Acute (7) Schizophrenia Priority: Secondary Status: Chronic Qualifiers: Schizophrenia type: unspecified Qualified Code(s): F20.9 - Schizophrenia, unspecified (8) Nausea & vomiting Priority: Secondary Status: Resolved Qualifiers: Vomiting type: hematemesis Qualified Code(s): K92.0 - Hematemesis - Discharge Medications Prescriptions: Pantoprazole Sodium 40 mg PO BID #60 tablet. Sucralfate [Carafate] 1 gm PO QIDAC #120 tablet Home Medications: Fluphenazine [Prolixin] 10 mg PO HS 08/13/15 [History] [place] Carbonate 300 mg PO TID 08/13/15 [History] OLANZapine [Zyprexa] 10 mg PO TID 08/13/15 [History] OLANZapine [Zyprexa] 20 mg PO HS 08/13/15 [History] Atorvastatin [Lipitor] 40 mg PO HS #30 tablet 08/16/15 [Rx] Insulin ASPART [Novolog Flexpen] 4 - 8 unit SQ TID PRN 12/12/16 [History] Insulin DETEMIR [Levemir Flextouch] 40 unit SQ BID 12/12/16 [History] Pantoprazole Sodium 40 mg PO BID #60 tablet. 12/14/16 [Rx] Sucralfate [Carafate] 1 gm PO QIDAC #120 tablet 12/14/16 [Rx] Allergies/Adverse Reactions: 3 Allergy/AdvReac Type Severity Reaction Status Date / Time No Known Allergies Allergy Verified 08/13/15 19:58 Procedures/tests Complete & Pending: Procedures Performed prior 72 hours Category Date Time Status CT abd pelvis wo iv oral only [CT] Routine Cat Scan 12/12/16 16:00 Completed Date of admission: 12/12/16 12:28 Primary care physician: Marcial Adams, Consults: 12/12/16 13:06 Consult to Gastroenterology [CONS] Routine Consulting Provider: Gem Dhillon Reason for Consult: vomiting blood tinged emesis Call Completed: Yes 12/13/16 11:18 Consult to Harvesting Contractor [CONS] Routine Reason for SW Consult: pt from a halfway. Discharging clinician: Dewey Ellis Anticipated date of discharge: 12/14/16 - Patient Status Disposition: Home, Self-Care Condition: Good Functional capacity at discharge: independent ambulation Overall status at discharge: patient is progressing back to baseline - Discharge Instructions Follow Up With: Marcial Adams MD [Primary Care Provider] - 12/18/16 10:30 am Paulina Aguayo MD [Partnered Physician] - (2-3 weeks) - Diet and Activity Activity: increase activity as tolerated Diet: advance to your usual diet (bland diet, avoid excess caffeine) Hospital course: Mr. Hernadez is a 56 year old male patient with a history of type 2 diabetes and schizophrenia who was seen in the ER after presenting with complaints of chest pain associated with nausea and vomiting. He did have some reddish-brown tinged emesis. His troponins were negative. Chest x-ray did not show any acute findings. Hemoglobin levels were normal. In the patient's symptoms of nausea and vomiting associated with possible hematemesis, GI was consulted. CT scan of the abdomen and pelvis was also done which suggested esophageal wall thickening concerning for esophagitis. Patient underwent upper GI endoscopy and was found to have erosive/ulcerated reflux esophagitis. Patient was placed on PPI twice daily and Carafate. He is feeling better now and is tolerating oral diet well. He is clinically stable for discharge home. He will follow up with GI after discharge for further management. - Time Spent with Patient Total time spent providing and/or coordinating discharge services: Less than 30 minutes (20 min) - Constitutional Vitals: Temp Pulse Resp BP Pulse Ox 98.1 F 70 16 131/77 95 12/14/16 07:25 12/14/16 07:25 12/14/16 07:25 12/14/16 07:25 12/14/16 09:26 General appearance: Present: A&O X 2, pleasant, answers questions appropriately - Neck Neck exam general surgery: Present: supple, trachea midline. Absent: lymphadenopathy - Respiratory Respiratory exam: Present: CTAB. Absent: accessory muscle use, rales, rhonchi, wheezes - Cardiovascular Cardiovascular exam: Present: RRR, +S1, +S2. Absent: diastolic murmur, gallop, rubs, systolic murmur - GI/Abdominal GI/Abdominal exam: Present: normal bowel sounds, soft, no peritoneal signs. Absent: distended, tenderness
[2016-12-14 11:09] VITALS: BP 157/90
== END 2016-12-14 12:55 | disposition home or self-care (01) ==
LOC: 3BNU 10:30 → EMEROO 10:30 → SUATTDRO 12:28 → 3BNU 13:04
PROVIDERS: ADMIT Hospitalist; ATTEND Internal Medicine

== ENCOUNTER 2017-06-28 17:17 | Inpatient (IN) ==
--- NOTE | 2017-06-28 17:27 | Emergency Department Note ---
Disposition Clinical Impression: Nausea & vomiting Qualifiers: Vomiting type: unspecified Vomiting Intractability: unspecified Qualified Code( s): R11.2 - Nausea with vomiting, unspecified Disposition: Admitted As Inpatient Condition: Fair Referrals: Marcial Adams MD [Primary Care Provider] - Forms: ED Satisfaction Letter, Work/School Release Time of Disposition: 19:41 General Adult HPI - General Chief complaint: ED Abdominal Pain Stated complaint: CP Time Seen by Provider: 06/28/17 17:24 Source: patient, EMS Mode of arrival: EMS Limitations: altered mental status Nursing Notes Reviewed: Yes Vital Signs Reviewed: Yes - History of Present Illness HPI Narrative: 57-year-old male who comes in original complaint was nausea vomiting. Patient is from a longterm. When I go in the room to talk to him he tells me the somebody's putting blood in his stomach. He says he has been vomiting. He denies any blood in his vomit. 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 He gave 2 or 3 different names. Pt Subjective Complaint: Chest pain nausea vomiting Location: chest, abdomen Radiation: non-radiation Pain Scale: 4 Quality: aching Consistency: constant Improves with: nothing Worsens with: nothing Associated symptoms: Reports: chest pain Treatments Prior to Arrival: none - Related Data Home Medications Medication Instructions Recorded Confirmed Fluphenazine [Prolixin] 10 mg PO HS 08/13/15 04/25/17 [place] Carbonate 900 mg PO HS 08/13/15 04/25/17 OLANZapine [Zyprexa] 10 mg PO 1400 08/13/15 04/25/17 OLANZapine [Zyprexa] 20 mg PO HS 08/13/15 04/25/17 Insulin ASPART [Novolog Flexpen] 4 - 8 unit SQ TID PRN 12/12/16 04/25/17 Insulin DETEMIR [Levemir Flextouch] 44 unit SQ BID 12/12/16 04/25/17 HYDROcodone/Acet 5/325 mg [[place] 1 - 2 tab PO Q6H PRN 04/25/17 04/25/17 5-325 mg] Previous Rx's Medication Instructions Recorded Atorvastatin [Lipitor] 40 mg PO HS #30 tablet 08/16/15 Pantoprazole Sodium 40 mg PO BID #60 tablet. 12/14/16 Allergies Allergy/AdvReac Type Severity Reaction Status Date / Time haloperidol [From Haldol] Allergy See Verified 04/25/17 10:12 Comments All systems ED: reviewed and negative except as stated. Constitutional: Denies: fever, chills, weakness, weight change Eyes: Denies: eye pain, eye discharge, vision change ENT ED: Denies: ear pain, throat pain, dental pain, hearing loss, epistaxis, congestion, dysphagia Cardiovascular: Reports: chest pain. Denies: palpitations, dyspnea on exertion , edema, syncope Respiratory: Denies: cough, dyspnea, wheezes, hemoptysis, stridor Gastrointestinal: Reports: abdominal pain, nausea, vomiting. Denies: diarrhea, constipation, hematemesis, melena, hematochezia Genitourinary: Denies: urgency, dysuria, frequency, hematuria Musculoskeletal: Denies: back pain, neck pain, arthralgia, myalgia Integumentary: Denies: rash, abrasion, lesions Neurological: Denies: headache, weakness, numbness, paresthesias, confusion, abnormal gait, vertigo Psychiatric: Denies: anxiety, depression, suicidal thoughts, homicidal thoughts , auditory hallucinations, visual hallucinations Endocrine: Denies: fatigue Hematological/Lymphatic: Denies: easy bleeding, easy bruising Allergic/Immunologic: Denies: facial swelling, urticaria Past Medical History - Past Medical History Medical history: Reports: diabetes, hypertension Surgical history: Reports: no surgical history Psychiatric history: Reports: schizophrenia, other - Social History Smoking Status: Current every day smoker Smokeless Tobacco Status: No Alcohol use: Reports: occasionally Drug use: Reports: none Physical Exam - General Limitations: altered mental status General appearance: alert - Head Head exam: atraumatic, normocephalic, normal inspection - Eye Eye exam: Present: normal appearance, PERRL, EOMI - ENT ENT exam: normal exam, normal oropharynx, mucous membranes moist - Neck Neck exam: Present: normal inspection, full ROM, trachea midline - Chest Chest inspection: Present: normal inspection, symmetric chest wall rise - Respiratory Respiratory exam: Present: normal lung sounds bilaterally - Cardiovascular Cardiovascular exam: Present: regular rate, normal rhythm, normal heart sounds - Abdominal Exam Abdominal exam: Present: soft, tenderness. Absent: guarding, rebound - Extremities Exam Extremities exam: Present: normal inspection, full ROM. Absent: tenderness, pedal edema - Expanded Lower Extremity Exam Neurovascular/Tendon exam: Absent: motor deficit, sensory deficit, tendon deficit - Back Exam Back exam: Present: normal inspection, full ROM. Absent: tenderness - Neurological Exam Neurological exam: Present: alert - Psychiatric Psychiatric exam: Present: normal affect, normal mood - Skin Skin exam: Present: warm, dry, intact, normal color Course - Reevaluation(s) Reevaluation #1: 57-year-old whose had nausea vomiting also complaining of some chest discomfort. Workup included a CT scan of the abdomen which showed thickening of the distal esophagus and some periesophageal fluid possibly esophagitis. Workup is negative wall admitted as he has persistent vomiting. Time: 19:40 - Consultations Consultation #1: Discussed with Time: 19:41 Vital Signs Temperature 98.5 F 06/28/17 17:18 Pulse Rate 120 06/28/17 17:18 Respiratory Rate 16 06/28/17 17:18 Blood Pressure 110/101 06/28/17 17:18 O2 Sat by Pulse Oximetry 97 06/28/17 17:18 Temperature 98.5 F 06/28/17 17:18 Pulse Rate 120 06/28/17 17:18 Respiratory Rate 16 06/28/17 17:18 Blood Pressure 110/101 06/28/17 17:18 O2 Sat by Pulse Oximetry 97 06/28/17 17:18 Oxygen Delivery Oxygen Delivery Room Air Medical Decision Making - Lab Data Result diagrams: 06/28/17 17:27 06/28/17 17:27 Lab Results 06/28/17 06/28/17 06/28/17 Range/Units 17:27 17:27 17:27 WBC 18.0 H (4.3-11.1) K/mcL RBC 5.74 H (4.19-5.50) M/mcL Hgb 16.9 (12.9-16.9) g/dL Hct 47.8 (37.5-50.1) % MCV 83.3 (83.0-100.0) fL MCH 29.4 (28.0-33.3) pg MCHC 35.4 (31.6-35.5) g/dL RDW 13.6 (11.5-14.5) % Plt Count 366 (140-400) K/mcL MPV 9.9 (9.4-12.4) fL Immature Gran % 0.4 (0-4) % Seg Neutrophils % 88.8 % Lymphocytes % 5.7 % Monocytes % 4.9 % Eosinophils % 0.0 % Basophils % 0.2 % Neutrophils # 16.0 H (1.6-8.9) K/mcL Lymphocytes # 1.0 (0.6-4.6) K/mcL Monocytes # 0.9 (0.0-1.3) K/mcL Eosinophils # 0.0 (0.0-0.6) K/mcL Basophils # 0.0 (0.0-0.2) K/mcL PT 11.8 (9.4-12.1) Seconds INR 1.1 APTT 28.3 (26.0-36.0) Seconds Sodium 138 (136-145) mEq/L Potassium 3.4 L (3.5-5.1) mEq/L Chloride 96 L (98-107) mEq/L Carbon Dioxide 26 (23-29) mEq/L BUN 17 (6-20) mg/dL Creatinine 1.56 H (0.70-1.30) mg/dL Est GFR ( Amer) 56 L (> 60) Est GFR (Non-Af Amer) 46 L (> 60) BUN/Creatinine Ratio 11 (6-26) Glucose 262 H (70-105) mg/dL Calculated Osmolality 297 (280-300) Calcium 9.9 (8.6-10.3) mg/dL Troponin I < 0.03 (< 0.04) ng/mL Amylase 77 (29-103) Units/L Lipase < 3 L (11-82) Units/L
[2017-06-28 17:42] LABS: Basophils % 0.2 %; Hematocrit 47.8 % (37.5-50.1); Hemoglobin 16.9 g/dL (12.9-16.9); Immature Granulocytes % 0.4 % (0-4); Lymphocytes % 5.7 %; Mean Corpuscular HGB Conc 35.4 g/dL (31.6-35.5); Mean Corpuscular Hemoglobin 29.4 pg (28.0-33.3); Mean Corpuscular Volume 83.3 fL (83.0-100.0); Mean Platelet Volume 9.9 fL (9.4-12.4); Monocytes # 0.9 K/mcL (0.0-1.3); Monocytes % 4.9 %; Platelet Count 366 K/mcL (140-400); Red Blood Count 5.74 M/mcL (4.19-5.50); Red Cell Distribution Width 13.6 % (11.5-14.5); Segmented Neutrophils % 88.8 %
[2017-06-28 17:47] LABS: INR 1.1; Prothrombin Time 11.8 Seconds (9.4-12.1)
[2017-06-28 17:49] LABS: Activated Partial Thrombo Time 28.3 Seconds (26.0-36.0)
[2017-06-28 18:06] LABS: Troponin I < 0.03 ng/mL (< 0.04)
[2017-06-28 18:12] LABS: Lipase < 3 Units/L (11-82)
[2017-06-28 18:13] LABS: Amylase 77 Units/L (29-103); BUN/Creatinine Ratio 11 (6-26); Blood Urea Nitrogen 17 mg/dL (6-20); Calcium 9.9 mg/dL (8.6-10.3); Carbon Dioxide 26 mEq/L (23-29); Chloride 96 mEq/L (98-107); Glucose 262 mg/dL (70-105); Osmolality,Calculated 297 (280-300); Potassium 3.4 mEq/L (3.5-5.1); Sodium 138 mEq/L (136-145); eGFR For African Americans 56 (> 60); eGFR For Non-African Americans 46 (> 60)
[2017-06-28] MEDS ORDERED: Ondansetron 4 MG/2 ML VIAL IVP ONE (19:08)
[2017-06-28] MEDS ORDERED: 0.9 % Sodium Chloride 1,000 ML IVC ONE (19:08)
--- NOTE | 2017-06-28 21:01 | Internal Med History&Physical ---
Date of Encounter: 06/28/17 Time of Encounter: 21:00 Internal Medicine - H&P: HPI Chief complaint: Nausea and vomiting History of present illness: Mr. Hernadez is a 57 year old male with prior history of diabetes mellitus and schizophrenia presents the emergency room with 24 hours of nausea and clear emesis. He denies eating anything that could have provoked the present episode. In the past in December 2016 he had a similar presentation. Endoscopy on 12/13/2016 showed a small hiatal hernia and erosive/ulcerated grade D esophagitis without bleeding. Follow-up endoscopy on 04/25/2017 showed normal esophagus with resolution of prior noted esophagitis. Few gastric polyps were present. No stigmata of bleeding were found in the gastric body. Biopsies were taken. Pathology showed a benign gastric tissue possibly polyp versus gastric foveolar hyperplasia. Past Med Surg Social Fam HX - Past Medical History Medical history: diabetes, hypertension Psychiatric history: schizophrenia, other - Past Surgical History Surgical History: no surgical history - Social History Smoking Status: Current every day smoker Smokeless Tobacco Status: No Alcohol use: occasionally Drug use: none Internal Medicine - H&P: Meds Fluphenazine [Prolixin] 10 mg PO HS 08/13/15 [History] [place] Carbonate 900 mg PO HS 08/13/15 [History] OLANZapine [Zyprexa] 10 mg PO 1400 08/13/15 [History] OLANZapine [Zyprexa] 20 mg PO HS 08/13/15 [History] Atorvastatin [Lipitor] 40 mg PO HS #30 tablet 08/16/15 [Rx] Insulin ASPART [Novolog Flexpen] 4 - 8 unit SQ TID PRN 12/12/16 [History] Insulin DETEMIR [Levemir Flextouch] 48 unit SQ BID 12/12/16 [History] Pantoprazole Sodium 40 mg PO BID #60 tablet. 12/14/16 [Rx] HYDROcodone/Acet 5/325 mg [[place] 5-325 mg] 1 - 2 tab PO Q6H PRN 04/25/17 [ History] 3 Allergy/AdvReac Type Severity Reaction Status Date / Time haloperidol [From Haldol] Allergy See Verified 06/28/17 19:57 Comments All Systems PM: A 10-system review of systems was performed and is negative for pertinent findings except as documented above in the HPI. - Constitutional Vitals: Temp Pulse Resp BP Pulse Ox 98.5 F 111 16 155/93 97 06/28/17 17:18 06/28/17 20:13 06/28/17 20:13 06/28/17 20:13 06/28/17 20:13 Internal Med - H&P Results - Labs CBC & Chem 7: 06/28/17 17:27 06/28/17 17:27 - Assessment and plan (1) Erosive esophagitis Current Visit: No Status: Acute Assessment and plan: - Resume home Protonix. Add sucralfate. - Consult GI. (2) Type 2 diabetes mellitus Current Visit: No Status: Chronic Assessment and plan: Humalog 3 times a day before meals. (3) Schizophrenia Current Visit: No Status: Chronic Assessment and plan: Resume home lithium, fluphenazine and Zyprexa. Qualifiers: Schizophrenia type: unspecified Qualified Code(s): F20.9 - Schizophrenia, unspecified (4) Elevated serum creatinine Current Visit: Yes Status: Acute Assessment and plan: Possibly prerenal. We will hydrate with IV fluids and reassess in the morning. (5) Hypokalemia due to loss of potassium Current Visit: Yes Status: Acute Assessment and plan: Repeat now. (6) Leukocytosis Current Visit: Yes Status: Acute Assessment and plan: Likely reactive from presentation. We will reassess based on labs in the morning. No overt evidence of mediastinitis. Qualifiers: Qualified Code(s): D72.829 - Elevated white blood cell count, unspecified (7) DVT prophylaxis Current Visit: No Status: Acute Assessment and plan: Stockings and early mobilization - Time Spent With Patient Total time spent is greater than 50% in coordination of care (as documented) at patient's floor/unit and/or counseling patient: 25 - 35 minutes
[2017-06-28] MEDS ORDERED: Naloxone 0.4 MG/ML INJ IVP PRN (21:14)
[2017-06-28] MEDS ORDERED: INSULIN DETEMIR 48 UNIT SQ SCH (21:30)
[2017-06-28] MEDS ORDERED: Metoclopramide 10 MG/2 ML VIAL IVP PRN (21:38)
[2017-06-28] MEDS: Lithium Carbonate 300 MG CAPSULE PO SCH (23:29)
[2017-06-28] MEDS: Ringers Solution, Lactated 1,000 ML IVC SCH (23:29)
[2017-06-28] MEDS: OLANZapine 10 MG TAB.RAPDIS PO SCH (23:37)
[2017-06-28] MEDS: Insulin DETEMIR 100 UNIT/ML X5UNITS SQ SCH (23:41)
[2017-06-28] MEDS: Insulin LISPRO 300 UNITS/3 ML VIAL SQ SCH (23:42)
[2017-06-29] MEDS: Ondansetron 4 MG/2 ML VIAL IVP PRN ×2 (02:37→13:50)
[2017-06-29 03:46] LABS: Hematocrit 46.1 % (37.5-50.1); Hemoglobin 16.1 g/dL (12.9-16.9); Mean Corpuscular HGB Conc 34.9 g/dL (31.6-35.5); Mean Corpuscular Hemoglobin 29.4 pg (28.0-33.3); Mean Corpuscular Volume 84.3 fL (83.0-100.0); Mean Platelet Volume 10.4 fL (9.4-12.4); Platelet Count 344 K/mcL (140-400); Red Blood Count 5.47 M/mcL (4.19-5.50); Red Cell Distribution Width 13.8 % (11.5-14.5)
[2017-06-29 03:58] LABS: BUN/Creatinine Ratio 13 (6-26); Blood Urea Nitrogen 18 mg/dL (6-20); Calcium 9.4 mg/dL (8.6-10.3); Carbon Dioxide 28 mEq/L (23-29); Chloride 95 mEq/L (98-107); Glucose 277 mg/dL (70-105); Osmolality,Calculated 292 (280-300); Potassium 3.6 mEq/L (3.5-5.1); Sodium 135 mEq/L (136-145); eGFR For African Americans > 60 (> 60); eGFR For Non-African Americans 51 (> 60)
[2017-06-29] MEDS ORDERED: Sucralfate 1 GM TABLET PO SCH (07:30)
[2017-06-29] MEDS: Insulin LISPRO 300 UNITS/3 ML VIAL SQ SCH ×3 (08:10→18:34)
[2017-06-29] MEDS: Insulin DETEMIR 100 UNIT/ML X5UNITS SQ SCH ×2 (08:12→21:57)
[2017-06-29] MEDS: Ringers Solution, Lactated 1,000 ML IVC SCH ×2 (09:37→18:40)
--- NOTE | 2017-06-29 12:11 | Internal Med Progress Note ---
Date of Encounter: 06/29/17 Time of Encounter: 11:30 - Assessment and plan (1) Erosive esophagitis Current Visit: No Status: Acute Assessment and plan: - On Protonix and sucralfate. - GI consult pending. (2) Type 2 diabetes mellitus Current Visit: No Status: Chronic Assessment and plan: Humalog 3 times a day before meals and Levemir. May need adjustment in evidence of elevated glucose but will reassess tomorrow. He received his morning Levemir. (3) Schizophrenia Current Visit: No Status: Chronic Assessment and plan: Resume home lithium, fluphenazine and Zyprexa. Qualifiers: Schizophrenia type: unspecified Qualified Code(s): F20.9 - Schizophrenia, unspecified (4) Elevated serum creatinine Current Visit: Yes Status: Acute Assessment and plan: Possibly prerenal. Improving with IV fluids. (5) Hypokalemia due to loss of potassium Current Visit: Yes Status: Resolved (6) Leukocytosis Current Visit: Yes Status: Acute Assessment and plan: Likely reactive from presentation. There is no overt evidence of mediastinitis. He is hemodynamically stable. We will reassess etiology. (7) DVT prophylaxis Current Visit: No Status: Acute Assessment and plan: Stockings and early mobilization - Time Spent With Patient Total time spent is greater than 50% in coordination of care (as documented) at patient's floor/unit and/or counseling patient: 25 - 35 minutes - Subjective Interval history: He feels nauseous better but reports epigastric pain from invisible people punching him. - Constitutional Vitals: Temp Pulse Resp BP Pulse Ox 99.4 F 116 18 178/85 92 06/29/17 11:24 06/29/17 11:24 06/29/17 11:24 06/29/17 11:24 06/29/17 11:24 General appearance: Present: A&O X 3 Exam: Physical exam Gen: Comfortable, laying in bed, in no visible distress HEENT: Normocephalic, atraumatic. No conjunctival icterus. Moist oral mucosa. Neck: Supple Lungs: Clear to auscultation, no foreign sounds Heart: Normal S1-S2, no murmurs rubs or gallops Abdomen: Normoactive bowel sounds, no guarding rigidity or tenderness Extremities: No edema clubbing or cyanosis Neuro: Alert oriented 3, no focal deficits Skin: No skin lesions Internal Medicine: Result - Labs CBC & Chem 7: 06/29/17 02:55 06/29/17 02:55 Labs: Short CBC 06/29/17 Range/Units 02:55 WBC 22.9 H (4.3-11.1) K/mcL Hgb 16.1 (12.9-16.9) g/dL Hct 46.1 (37.5-50.1) % Plt Count 344 (140-400) K/mcL BMP 06/29/17 02:55 Sodium 135 L Potassium 3.6 Chloride 95 L Carbon Dioxide 28 BUN 18 Creatinine 1.42 H Glucose 277 H Calcium 9.4 - ABG Interpretation ABG results: PT/INR, D-dimer PT 11.8 Seconds (9.4-12.1) 06/28/17 17:27 Consult Discharge Plan - Plan Referrals: Marcial Adams MD [Primary Care Provider] -
[2017-06-29] MEDS ORDERED: Haloperidol Lactate 5 MG/ML VIAL IVP PRN (12:28)
[2017-06-29] MEDS: OLANZapine 10 MG TAB.RAPDIS PO SCH ×2 (13:27→21:09)
[2017-06-29] MEDS ORDERED: Propofol 500 MG/50 ML INFUS..BTL ONE ×2 (17:03)
[2017-06-29] MEDS ORDERED: Albuterol 2.5 MG/3 ML NEBULIZER ONE (17:27)
[2017-06-29] MEDS ORDERED: Ipratropium/Albuterol Neb 3 ML ONE (17:28)
--- NOTE | 2017-06-29 18:01 | Anesthesia Evaluation PreOp ---
Date of Encounter: 06/29/17 Time of Encounter: 16:40 - Past History Planned Operation: EGD Cardiac History: Denies any Significant Hx Pulmonary History: COPD [employer] History: Other (Schizophrrenia) Other Medical History: Renal (Elevated Cr, PATRICIO), Diabetes Type II, Other ( Elevated WBC, epigastric pain) Alcohol Use: occasionally Drug use: none Medications and Allergies Fluphenazine [Prolixin] 10 mg PO HS 08/13/15 [History] [place] Carbonate 900 mg PO HS 08/13/15 [History] OLANZapine [Zyprexa] 10 mg PO 1400 08/13/15 [History] OLANZapine [Zyprexa] 20 mg PO HS 08/13/15 [History] Atorvastatin [Lipitor] 40 mg PO HS #30 tablet 08/16/15 [Rx] Insulin ASPART [Novolog Flexpen] 4 - 8 unit SQ TID PRN 12/12/16 [History] Insulin DETEMIR [Levemir Flextouch] 48 unit SQ BID 12/12/16 [History] Pantoprazole Sodium 40 mg PO BID #60 tablet. 12/14/16 [Rx] HYDROcodone/Acet 5/325 mg [[place] 5-325 mg] 1 - 2 tab PO Q6H PRN 04/25/17 [ History] 3 Allergy/AdvReac Type Severity Reaction Status Date / Time haloperidol [From Haldol] Allergy See Verified 06/28/17 19:57 Comments - Meds/Allergy Pre-op Review Medications Reviewed: Yes Allergies Reviewed: Yes Beta Blockers on Current Med List: No Anesthesia Results - Labs 06/29/17 02:55 06/29/17 02:55 Anesthesia Exam Vital Signs/O2 Sat, Most Current Temp Pulse Resp BP Pulse Ox 98.7 F 112 18 161/99 95 06/29/17 16:33 06/29/17 16:33 06/29/17 16:33 06/29/17 16:33 06/29/17 16:33 NPO (# of Hours): >8 - HEENT Mallampati: II Teeth: Normal, Poor dentition Oral Opening: Greater than 3 - Cardiac Rhythm: Regular - Pulmonary Breath Sounds: bilateral Rales, bilateral Rhonchi Anesthesia Assess/Plan ASA Score: 3 Modified Eros Scale for Level of Consciousness: Cooperative, oriented, and tranquil Anesthetic Plan: MAC Monitoring Plan: Standard Monitors Recovery Plan: Other Anes Supervising Prov Stmt: Patient informed and consented. Risks, benefits, and alternatives discussed. Patient wishes to proceed.
--- NOTE | 2017-06-29 18:03 | Anesthesia Evaluation Post Op ---
Date of Encounter: 06/29/17 Time of Encounter: 18:02 - Lungs Lungs: Rales, Rhonchi - Airway Airway: Non-obstructed - Cardiovascular Baseline Rhythm - Mental Status Mental Status: Alert & Oriented, Answers Appropriately - Nausea Vomiting Nausea Vomiting: Not Present Notes: Patient with edematous lower esophagus, preventing secretions from entering stomach. Possible chronic aspiration. Required bag mask ventilation after scope out, with nasotracheal suction. Patient is stable postoperatively and has adequately recovered from anesthesia. Patient has stable airway patency and respiratory function including respiratory rate and oxygen saturation. Patient has a stable heart rate, blood pressure and adequate hydration. Patients mental status is acceptable. Patients temperature is appropriate. Pain and nausea are adequately controlled. Given the findings of severe esophagitis, severe gastritis and severe duodenitis , in the setting of elevated WBC, and possible aspiration, Dr. Munguia is in agreement that patient needs to be admitted to the step-down unit or ICU. - Discharge PostOp Status: Transfer Patient to floor
--- NOTE | 2017-06-29 18:32 | General Surgery Consult Note ---
<AdenikeRaymon - Last Filed: 06/29/17 18:48> Date of Encounter: 06/29/17 Time of Encounter: 12:45 Assessment and Plan (1) Esophageal abnormality Current Visit: No Status: Acute Pt taken to EGD by Dr. Munguia. See endoscopy report for full findings. pt transfered to s/p egd due to respiratory difficulties post procedure. Plan: Clear Liquid diet 250 mls of ice and sips per shift, non sweet and non carbonated. continue pain control continue antiemetics continue abx continue to monitor H Pylori and Surgical pathology sent results pending (2) Schizophrenia Current Visit: No Status: Chronic management per primary team Qualifiers: Schizophrenia type: unspecified Qualified Code(s): F20.9 - Schizophrenia, unspecified (3) Leukocytosis Current Visit: Yes Status: Acute WBC 18 on admission 22.9 today. possibly secondary to esophagitis. continue to monitor Qualifiers: Leukocytosis type: unspecified Qualified Code(s): D72.829 - Elevated white blood cell count, unspecified History of Present Illness Consult date: 06/29/17 Reason for consult: other (concern for esophageal perforation) Requesting physician: Sai Arnett History of present illness: Mr. Hernadez is a 57 year old male with prior history of Esophagitis, diabetes mellitus and schizophrenia who presents to the ED c/o 1 day of Nausea, Vomtiing , and Chest pain. Patient had similar admission in December of 2016. At that time he was diagnosed with a small hiatal hernia and erosive/ulcerated grade D esophagitis without bleeding. Follow-up endoscopy on 04/25/2017 showed resolution of prior noted esophagitis. Patient is schizophrenic and will say things like "I hurt because invisible people are punchign me or because people reached down my throat and scratched my throat to stop me from being able to sing." Patient reports spitting up blood. Past Med Surg Social Fam HX - Past Medical History Medical history: diabetes, hypertension Psychiatric history: schizophrenia, other - Past Surgical History Surgical History: no surgical history - Social History Smoking Status: Current every day smoker Smokeless Tobacco Status: No Alcohol use: occasionally Drug use: none Medications and Allergies Fluphenazine [Prolixin] 10 mg PO HS 08/13/15 [History] [place] Carbonate 900 mg PO HS 06/04/16 [History] OLANZapine [Zyprexa] 10 mg PO 1400 08/13/15 [History] OLANZapine [Zyprexa] 20 mg PO HS 08/13/15 [History] Atorvastatin [Lipitor] 40 mg PO HS #30 tablet 08/16/15 [Rx] Insulin ASPART [Novolog Flexpen] 4 - 8 unit SQ TID PRN 12/12/16 [History] Insulin DETEMIR [Levemir Flextouch] 48 unit SQ BID 12/12/16 [History] Pantoprazole Sodium 40 mg PO BID #60 tablet. 12/14/16 [Rx] HYDROcodone/Acet 5/325 mg [[place] 5-325 mg] 1 - 2 tab PO Q6H PRN 04/25/17 [ History] 3 Allergy/AdvReac Type Severity Reaction Status Date / Time haloperidol [From Haldol] Allergy See Verified 06/28/17 19:57 Comments Review of Systems All systems PM: The remainder of the systems were reviewed and are negative General Surgery Exam Initial Vital Signs Temp Pulse Resp BP Pulse Ox 98.5 F 120 16 110/101 97 06/28/17 17:18 06/28/17 17:18 06/28/17 17:18 06/28/17 17:18 06/28/17 17:18 - General physical appearance well developed, well nourished, no distress - Eyes normal ocular movement - ENT normal mucosa - Neck trachea midline - Respiratory normal expansion, normal respiratory effort, clear to auscultation - Cardiovascular Cardiovascular exam: Present: RRR, no murmurs/rubs/gallops - Abdomen Abdomen general surgery: Present: bowel sounds present, soft, non tender - Integumentary Integumentary general surgery: Present: warm and dry - Neurologic Present: CN 2-12 grossly intact - Psychiatric Psychiatric general surgery: Present: other. Absent: appropriate (hx of schizophrenia, delusional) Exam Initial Vital Signs Temp Pulse Resp BP Pulse Ox 98.5 F 120 16 110/101 97 06/28/17 17:18 06/28/17 17:18 06/28/17 17:18 06/28/17 17:18 06/28/17 17:18 Results - Labs 06/29/17 02:55 06/29/17 02:55 Abnormal lab results WBC 22.9 K/mcL (4.3-11.1) H 06/29/17 02:55 Neutrophils # 16.0 K/mcL (1.6-8.9) H 06/28/17 17:27 Sodium 135 mEq/L (136-145) L 06/29/17 02:55 Chloride 95 mEq/L (98-107) L 06/29/17 02:55 Creatinine 1.42 mg/dL (0.70-1.30) H 06/29/17 02:55 Est GFR (Non-Af Amer) 51 (> 60) L 06/29/17 02:55 Glucose 277 mg/dL (70-105) H 06/29/17 02:55 POC Glucose 202 mg/dL (70-99) H 06/29/17 11:22 Lipase < 3 Units/L (11-82) L 06/28/17 17:27 Diabetes panel 06/29/17 Range/Units 02:55 Sodium 135 L (136-145) mEq/L Potassium 3.6 (3.5-5.1) mEq/L Chloride 95 L (98-107) mEq/L Carbon Dioxide 28 (23-29) mEq/L BUN 18 (6-20) mg/dL Creatinine 1.42 H (0.70-1.30) mg/dL Glucose 277 H (70-105) mg/dL Calcium 9.4 (8.6-10.3) mg/dL Calcium panel 06/29/17 Range/Units 02:55 Calcium 9.4 (8.6-10.3) mg/dL Pituitary panel 06/29/17 Range/Units 02:55 Sodium 135 L (136-145) mEq/L Potassium 3.6 (3.5-5.1) mEq/L Chloride 95 L (98-107) mEq/L Carbon Dioxide 28 (23-29) mEq/L BUN 18 (6-20) mg/dL Creatinine 1.42 H (0.70-1.30) mg/dL Glucose 277 H (70-105) mg/dL Calcium 9.4 (8.6-10.3) mg/dL Adrenal panel 06/29/17 Range/Units 02:55 Sodium 135 L (136-145) mEq/L Potassium 3.6 (3.5-5.1) mEq/L Chloride 95 L (98-107) mEq/L Carbon Dioxide 28 (23-29) mEq/L BUN 18 (6-20) mg/dL Creatinine 1.42 H (0.70-1.30) mg/dL Glucose 277 H (70-105) mg/dL Calcium 9.4 (8.6-10.3) mg/dL All other labs normal. Consult Discharge Plan - Plan Referrals: Marcial Adams MD [Primary Care Provider] - <Cesario Munguia - Last Filed: 06/29/17 22:51> Date of Encounter: 06/29/17 Review of Systems All systems PM: The remainder of the systems were reviewed and are negative General Surgery Exam Initial Vital Signs Temp Pulse Resp BP Pulse Ox 98.5 F 120 16 110/101 97 06/28/17 17:18 06/28/17 17:18 06/28/17 17:18 06/28/17 17:18 06/28/17 17:18 Exam Initial Vital Signs Temp Pulse Resp BP Pulse Ox 98.5 F 120 16 110/101 97 06/28/17 17:18 06/28/17 17:18 06/28/17 17:18 06/28/17 17:18 06/28/17 17:18 Results - Labs 06/29/17 02:55 06/29/17 02:55 Abnormal lab results WBC 22.9 K/mcL (4.3-11.1) H 06/29/17 02:55 Neutrophils # 16.0 K/mcL (1.6-8.9) H 06/28/17 17:27 Sodium 135 mEq/L (136-145) L 06/29/17 02:55 Chloride 95 mEq/L (98-107) L 06/29/17 02:55 Creatinine 1.42 mg/dL (0.70-1.30) H 06/29/17 02:55 Est GFR (Non-Af Amer) 51 (> 60) L 06/29/17 02:55 Glucose 277 mg/dL (70-105) H 06/29/17 02:55 POC Glucose 202 mg/dL (70-99) H 06/29/17 11:22 Lipase < 3 Units/L (11-82) L 06/28/17 17:27 Diabetes panel 06/29/17 Range/Units 02:55 Sodium 135 L (136-145) mEq/L Potassium 3.6 (3.5-5.1) mEq/L Chloride 95 L (98-107) mEq/L Carbon Dioxide 28 (23-29) mEq/L BUN 18 (6-20) mg/dL Creatinine 1.42 H (0.70-1.30) mg/dL Glucose 277 H (70-105) mg/dL Calcium 9.4 (8.6-10.3) mg/dL Calcium panel 06/29/17 Range/Units 02:55 Calcium 9.4 (8.6-10.3) mg/dL Pituitary panel 06/29/17 Range/Units 02:55 Sodium 135 L (136-145) mEq/L Potassium 3.6 (3.5-5.1) mEq/L Chloride 95 L (98-107) mEq/L Carbon Dioxide 28 (23-29) mEq/L BUN 18 (6-20) mg/dL Creatinine 1.42 H (0.70-1.30) mg/dL Glucose 277 H (70-105) mg/dL Calcium 9.4 (8.6-10.3) mg/dL Adrenal panel 06/29/17 Range/Units 02:55 Sodium 135 L (136-145) mEq/L Potassium 3.6 (3.5-5.1) mEq/L Chloride 95 L (98-107) mEq/L Carbon Dioxide 28 (23-29) mEq/L BUN 18 (6-20) mg/dL Creatinine 1.42 H (0.70-1.30) mg/dL Glucose 277 H (70-105) mg/dL Calcium 9.4 (8.6-10.3) mg/dL All other labs normal. - Attending Attestation patient seen and examined. I have reviewed all labs and notes, including this one. I agree with the above assessment and plan.
[2017-06-29] MEDS: Piperacillin/Tazobactam 3.375 GM in 0.9 % Sodium Chloride Mini Bag 100 ML IVPB SCH ×2 (18:40→23:38)
[2017-06-29] MEDS: Lithium Carbonate 300 MG CAPSULE PO SCH (21:09)
[2017-06-30] MEDS: Insulin LISPRO 300 UNITS/3 ML VIAL SQ SCH ×3 (07:57→16:44)
[2017-06-30] MEDS: Piperacillin/Tazobactam 3.375 GM in 0.9 % Sodium Chloride Mini Bag 100 ML IVPB SCH ×3 (08:06→23:34)
[2017-06-30] MEDS: Insulin DETEMIR 100 UNIT/ML X5UNITS SQ SCH ×2 (08:06→19:44)
[2017-06-30 08:16] LABS: Basophils # 0.1 K/mcL (0.0-0.2); Basophils % 0.3 %; Eosinophils # 0.1 K/mcL (0.0-0.6); Eosinophils % 0.2 %; Immature Granulocytes % 0.7 % (0-4); Lymphocytes # 2.1 K/mcL (0.6-4.6); Lymphocytes % 9.6 %; Mean Corpuscular HGB Conc 33.9 g/dL (31.6-35.5); Mean Corpuscular Hemoglobin 28.8 pg (28.0-33.3); Mean Corpuscular Volume 85.1 fL (83.0-100.0); Mean Platelet Volume 10.2 fL (9.4-12.4); Monocytes # 1.6 K/mcL (0.0-1.3); Monocytes % 7.4 %; Neutrophils # 17.4 K/mcL (1.6-8.9); Platelet Count 260 K/mcL (140-400); Red Blood Count 4.82 M/mcL (4.19-5.50); Red Cell Distribution Width 13.6 % (11.5-14.5); Segmented Neutrophils % 81.8 %
[2017-06-30 08:19] LABS: Hemoglobin 13.9 g/dL (12.9-16.9)
[2017-06-30 08:34] LABS: BUN/Creatinine Ratio 14 (6-26); Blood Urea Nitrogen 17 mg/dL (6-20); Calcium 8.5 mg/dL (8.6-10.3); Carbon Dioxide 30 mEq/L (23-29); Chloride 103 mEq/L (98-107); Glucose 112 mg/dL (70-105); Osmolality,Calculated 290 (280-300); Potassium 3.3 mEq/L (3.5-5.1); Sodium 139 mEq/L (136-145); eGFR For African Americans > 60 (> 60); eGFR For Non-African Americans 60 (> 60)
--- NOTE | 2017-06-30 11:14 | General Surgery Progress Note ---
<RjdarrellalizeRaymon fish - Last Filed: 06/30/17 12:46> Date of Encounter: 06/30/17 Time of Encounter: 08:30 - Assessment and Plan (1) Esophageal abnormality Current Visit: No Status: Acute Pt taken to EGD by Dr. Munguia yesterday See endoscopy report for full findings. pt transfered to s/p egd due to respiratory difficulties post procedure. EGD findings may reperesent sever esophagitis. Due to psych hx concern for possible caustic ingestion. Patient denies any such digestion, SI, SA. Plan: NPO diet due to concern about difficulty with secretions and pain with drinking. continue pain control continue antiemetics continue abx continue to monitor H Pylori and Surgical pathology sent results pending consider GI consult, asked Dr. Peguero to look at endoscopy images, but consider formal consult if not already placed. (2) Schizophrenia Current Visit: No Status: Chronic management per primary team Consider Psych consult Qualifiers: Schizophrenia type: unspecified Qualified Code(s): F20.9 - Schizophrenia, unspecified (3) Leukocytosis Current Visit: Yes Status: Acute WBC 18 on admission-->22.9-->21.3. possibly secondary to esophagitis. continue to monitor Qualifiers: Leukocytosis type: unspecified Qualified Code(s): D72.829 - Elevated white blood cell count, unspecified Subjective Patient reports: no new complaints, voiding w/o difficulty, afebrile Narrative: Pt reports pain is controlled. He reports wanting to have more to drink. He does however report difficulty with his phlegm and secretions. No N/V/D/F/Abd pain. Objective Vital Signs - Last 8 Hours Temp Pulse Resp BP Pulse Ox 06/30/17 07:41 99 F 112 18 154/96 97 06/30/17 03:55 99.2 F 102 20 155/90 95 Intake and Output 06/29/17 06/30/17 06/30/17 23:59 07:59 15:59 Intake Total 1220 / 1220 160 / 160 0 / 0 Output Total 400 / 400 500 / 500 Balance 820 / 820 -340 / -340 0 / 0 Intake: IV Fluids 1100 / 1100 100 / 100 Lactated Ringers 1,000 ML @ 100 1000 / 1000 mls/hr IVC .Q10H [facility] Rx#: [id number] Zosyn 3.375 GM In 0.9 % Sodium 100 / 100 100 / 100 Chloride (Mini-Bag +) 100 ML @ 25 mls/hr IVPB Q8HR [facility] Rx#: [id number] Oral 120 / 120 60 / 60 0 / 0 Output: Urine 400 / 400 500 / 500 Other: Meal NPO npo Percent of Meal Consumed 0% Weight 102 kg Blood Glucose* 202 102 Patient Weight 06/30/17 23:59 Weight 102 kg - General physical appearance well developed, well nourished, no distress - Eyes normal ocular movement - ENT normal mucosa - Neck Neck exam: trachea midline - Respiratory normal expansion, normal respiratory effort, clear to auscultation - Cardiovascular Cardiovascular exam: Present: tachycardia, regular rhythm, no murmurs/rubs/ gallops - Abdomen Abdomen: Present: bowel sounds present, soft, non tender - Integumentary no rash - Neurologic CN 2-12 grossly intact - Musculoskeletal normal posture - Psychiatric speech is normal - Labs 06/30/17 07:43 06/30/17 07:43 Diabetes panel 06/30/17 Range/Units 07:43 Sodium 139 (136-145) mEq/L Potassium 3.3 L (3.5-5.1) mEq/L Chloride 103 (98-107) mEq/L Carbon Dioxide 30 H (23-29) mEq/L BUN 17 (6-20) mg/dL Creatinine 1.25 (0.70-1.30) mg/dL Glucose 112 H (70-105) mg/dL Calcium 8.5 L (8.6-10.3) mg/dL Calcium panel 06/30/17 Range/Units 07:43 Calcium 8.5 L (8.6-10.3) mg/dL Pituitary panel 06/30/17 Range/Units 07:43 Sodium 139 (136-145) mEq/L Potassium 3.3 L (3.5-5.1) mEq/L Chloride 103 (98-107) mEq/L Carbon Dioxide 30 H (23-29) mEq/L BUN 17 (6-20) mg/dL Creatinine 1.25 (0.70-1.30) mg/dL Glucose 112 H (70-105) mg/dL Calcium 8.5 L (8.6-10.3) mg/dL Adrenal panel 06/30/17 Range/Units 07:43 Sodium 139 (136-145) mEq/L Potassium 3.3 L (3.5-5.1) mEq/L Chloride 103 (98-107) mEq/L Carbon Dioxide 30 H (23-29) mEq/L BUN 17 (6-20) mg/dL Creatinine 1.25 (0.70-1.30) mg/dL Glucose 112 H (70-105) mg/dL Calcium 8.5 L (8.6-10.3) mg/dL Consult Discharge Plan - Plan Referrals: Marcial Adams MD [Primary Care Provider] - <Cesario Munguia - Last Filed: 06/30/17 15:40> Date of Encounter: 06/30/17 Objective Vital Signs - Last 8 Hours Temp Pulse Resp BP Pulse Ox 06/30/17 11:39 99.1 F 99 17 151/88 92 06/30/17 07:41 99 F 112 18 154/96 97 Intake and Output 06/29/17 06/30/17 06/30/17 23:59 07:59 15:59 Intake Total 1220 / 1220 160 / 160 100 / 100 Output Total 400 / 400 500 / 500 600 / 600 Balance 820 / 820 -340 / -340 -500 / -500 Intake: IV Fluids 1100 / 1100 100 / 100 100 / 100 Lactated Ringers 1,000 ML @ 100 1000 / 1000 mls/hr IVC .Q10H [facility] Rx#: [id number] Zosyn 3.375 GM In 0.9 % Sodium 100 / 100 100 / 100 100 / 100 Chloride (Mini-Bag +) 100 ML @ 25 mls/hr IVPB Q8HR [facility] Rx#: [id number] Oral 120 / 120 60 / 60 0 / 0 Output: Urine 400 / 400 500 / 500 600 / 600 Other: Meal NPO npo Percent of Meal Consumed 0% Weight 102 kg Blood Glucose* 202 102 78 Patient Weight 06/30/17 23:59 Weight 102 kg - Labs 06/30/17 07:43 06/30/17 07:43 Diabetes panel 06/30/17 Range/Units 07:43 Sodium 139 (136-145) mEq/L Potassium 3.3 L (3.5-5.1) mEq/L Chloride 103 (98-107) mEq/L Carbon Dioxide 30 H (23-29) mEq/L BUN 17 (6-20) mg/dL Creatinine 1.25 (0.70-1.30) mg/dL Glucose 112 H (70-105) mg/dL Calcium 8.5 L (8.6-10.3) mg/dL Calcium panel 06/30/17 Range/Units 07:43 Calcium 8.5 L (8.6-10.3) mg/dL Pituitary panel 06/30/17 Range/Units 07:43 Sodium 139 (136-145) mEq/L Potassium 3.3 L (3.5-5.1) mEq/L Chloride 103 (98-107) mEq/L Carbon Dioxide 30 H (23-29) mEq/L BUN 17 (6-20) mg/dL Creatinine 1.25 (0.70-1.30) mg/dL Glucose 112 H (70-105) mg/dL Calcium 8.5 L (8.6-10.3) mg/dL Adrenal panel 06/30/17 Range/Units 07:43 Sodium 139 (136-145) mEq/L Potassium 3.3 L (3.5-5.1) mEq/L Chloride 103 (98-107) mEq/L Carbon Dioxide 30 H (23-29) mEq/L BUN 17 (6-20) mg/dL Creatinine 1.25 (0.70-1.30) mg/dL Glucose 112 H (70-105) mg/dL Calcium 8.5 L (8.6-10.3) mg/dL - Attending Attestation I have personally seen and examined the patient. I have reviewed pertinent labs , imaging, progress notes, including this one. I agree with the above assessment and plan and wish to include the following... a/p EGD for esophageal thickening and stenosis at the distal end after imaging ruled out perforation; concern for ingestion of toxic substance due to the degree of inflammation; currently with increased secretions; patient an unreliable historian; recommend GI consult; keep NPO at present; recommend repeating UGI in 48-72hrs from EGD prior to starting diet; will cont to follow
[2017-06-30] MEDS: OLANZapine 10 MG TAB.RAPDIS PO SCH ×2 (14:54→19:20)
[2017-06-30] MEDS ORDERED: Potassium Chloride 40 MEQ, Lidocaine 1% 2 ML in D5% in Water 500 ML IVPB ONE (15:42)
--- NOTE | 2017-06-30 16:02 | Internal Med Progress Note ---
Date of Encounter: 06/30/17 Time of Encounter: 16:00 - Assessment and plan (1) Erosive esophagitis Current Visit: No Status: Acute Assessment and plan: s/p EGD 06/29, which showed erosive esophagitis. There is concern for caustic ingestion. No e/o esophageal leak or mediastinitis. Plan: - Maintain NPO - Continue Zosyn - Dr. Peguero to see patient - Appreciate Dr. Munguia consultation (2) Type 2 diabetes mellitus Current Visit: No Status: Chronic Assessment and plan: - Reduce Levemir dose as patient is NPO. - Humalog SS (3) Schizophrenia Current Visit: No Status: Chronic Assessment and plan: Use Haldol PRN for now. He sees psychiatry in clinic. Qualifiers: Schizophrenia type: unspecified Qualified Code(s): F20.9 - Schizophrenia, unspecified (4) Elevated serum creatinine Current Visit: Yes Status: Acute Assessment and plan: Imroved with IVFs. Likely pre renal from vomiting. (5) Hypokalemia due to loss of potassium Current Visit: Yes Status: Resolved Assessment and plan: Replete (6) Leukocytosis Current Visit: Yes Status: Acute Assessment and plan: Monitor while on abx. Suspicion for esophagitis as cause. (7) DVT prophylaxis Current Visit: No Status: Acute Assessment and plan: Stockings and early mobilization - Time Spent With Patient Total time spent is greater than 50% in coordination of care (as documented) at patient's floor/unit and/or counseling patient: 25 - 35 minutes - Subjective Interval history: Endoscopy yesterday. Had post procedural hypoxemia, likely from sedation. Off O2 now. - Constitutional Vitals: Temp Pulse Resp BP Pulse Ox 99.1 F 99 17 151/88 92 06/30/17 11:39 06/30/17 11:39 06/30/17 11:39 06/30/17 11:39 06/30/17 11:39 General appearance: Present: A&O X 3 - Head Head exam: Present: atraumatic, normal inspection, normocephalic - Neck Neck exam general surgery: Present: full ROM Internal Medicine: Result - Labs CBC & Chem 7: 06/30/17 07:43 06/30/17 07:43 Labs: Short CBC 06/30/17 Range/Units 07:43 WBC 21.3 H (4.3-11.1) K/mcL Hgb 13.9 D (12.9-16.9) g/dL Hct 41.0 (37.5-50.1) % Plt Count 260 (140-400) K/mcL Neutrophils # 17.4 H (1.6-8.9) K/mcL BMP 06/30/17 07:43 Sodium 139 Potassium 3.3 L Chloride 103 Carbon Dioxide 30 H BUN 17 Creatinine 1.25 Glucose 112 H Calcium 8.5 L - ABG Interpretation ABG results: PT/INR, D-dimer PT 11.8 Seconds (9.4-12.1) 06/28/17 17:27 Consult Discharge Plan - Plan Referrals: Marcial Adams MD [Primary Care Provider] -
[2017-06-30] MEDS: Lithium Carbonate 300 MG CAPSULE PO SCH (19:20)
[2017-06-30] MEDS: Ringers Solution, Lactated 1,000 ML IVC SCH (22:05)
[2017-07-01 01:52] LABS: Basophils # 0.1 K/mcL (0.0-0.2); Basophils % 0.6 %; Eosinophils # 0.3 K/mcL (0.0-0.6); Eosinophils % 2.1 %; Hematocrit 39.6 % (37.5-50.1); Hemoglobin 13.4 g/dL (12.9-16.9); Immature Granulocytes % 0.8 % (0-4); Lymphocytes # 2.2 K/mcL (0.6-4.6); Lymphocytes % 17.2 %; Mean Corpuscular HGB Conc 33.8 g/dL (31.6-35.5); Mean Corpuscular Hemoglobin 28.5 pg (28.0-33.3); Mean Corpuscular Volume 84.3 fL (83.0-100.0); Mean Platelet Volume 9.8 fL (9.4-12.4); Monocytes # 1.2 K/mcL (0.0-1.3); Monocytes % 9.1 %; Neutrophils # 9.2 K/mcL (1.6-8.9); Platelet Count 251 K/mcL (140-400); Red Cell Distribution Width 13.2 % (11.5-14.5); Segmented Neutrophils % 70.2 %
[2017-07-01 02:51] LABS: BUN/Creatinine Ratio 14 (6-26); Blood Urea Nitrogen 16 mg/dL (6-20); Calcium 8.4 mg/dL (8.6-10.3); Carbon Dioxide 25 mEq/L (23-29); Chloride 107 mEq/L (98-107); Glucose 110 mg/dL (70-105); Osmolality,Calculated 292 (280-300); Potassium 3.5 mEq/L (3.5-5.1); Sodium 140 mEq/L (136-145); eGFR For African Americans > 60 (> 60); eGFR For Non-African Americans > 60 (> 60)
[2017-07-01] MEDS: Piperacillin/Tazobactam 3.375 GM in 0.9 % Sodium Chloride Mini Bag 100 ML IVPB SCH ×2 (07:46→15:15)
[2017-07-01] MEDS: Insulin LISPRO 300 UNITS/3 ML VIAL SQ SCH ×3 (08:03→17:24)
--- NOTE | 2017-07-01 08:50 | General Surgery Progress Note ---
Date of Encounter: 07/01/17 Time of Encounter: 07:45 - Assessment and Plan (1) Esophageal abnormality Current Visit: No Status: Acute Pt taken to EGD by Dr. Munguia yesterday See endoscopy report for full findings. pt transfered to s/p egd due to respiratory difficulties post procedure. EGD findings may reperesent sever esophagitis. Due to psych hx concern for possible caustic ingestion. Patient denies any such digestion, SI, SA. Plan: NPO diet due to concern about difficulty with secretions and pain with drinking. continue pain control continue antiemetics continue abx continue to monitor H Pylori and Surgical pathology sent results pending consider GI consult, asked Dr. Peguero to look at endoscopy images, but consider formal consult if not already placed. (2) Schizophrenia Current Visit: No Status: Chronic management per primary team Consider Psych consult Qualifiers: Schizophrenia type: unspecified Qualified Code(s): F20.9 - Schizophrenia, unspecified (3) Leukocytosis Current Visit: Yes Status: Acute WBC 18 on admission-->22.9-->21.3. possibly secondary to esophagitis. continue to monitor Qualifiers: Leukocytosis type: unspecified Qualified Code(s): D72.829 - Elevated white blood cell count, unspecified Objective Vital Signs - Last 8 Hours Temp Pulse Resp BP Pulse Ox 07/01/17 08:20 0 07/01/17 07:30 99.2 F 73 18 131/87 94 07/01/17 07:25 99.2 F 79 18 131/87 95 07/01/17 04:05 98.3 F 78 17 161/98 95 Intake and Output 06/30/17 07/01/17 07/01/17 23:59 07:59 15:59 Intake Total 280 / 280 100 / 100 Output Total 400 / 400 Balance -120 / -120 100 / 100 Intake: IV Fluids 100 / 100 100 / 100 Zosyn 3.375 GM In 0.9 % Sodium 100 / 100 100 / 100 Chloride (Mini-Bag +) 100 ML @ 25 mls/hr IVPB Q8HR [facility] Rx#: [id number] Oral 180 / 180 Output: Urine 400 / 400 Other: Weight 101.7 kg Blood Glucose* 71 134 Patient Weight 07/01/17 23:59 Weight 101.7 kg - Labs 07/01/17 01:45 07/01/17 01:45 Diabetes panel 07/01/17 Range/Units 01:45 Sodium 140 (136-145) mEq/L Potassium 3.5 (3.5-5.1) mEq/L Chloride 107 (98-107) mEq/L Carbon Dioxide 25 (23-29) mEq/L BUN 16 (6-20) mg/dL Creatinine 1.15 (0.70-1.30) mg/dL Glucose 110 H (70-105) mg/dL Calcium 8.4 L (8.6-10.3) mg/dL Calcium panel 07/01/17 Range/Units 01:45 Calcium 8.4 L (8.6-10.3) mg/dL Pituitary panel 07/01/17 Range/Units 01:45 Sodium 140 (136-145) mEq/L Potassium 3.5 (3.5-5.1) mEq/L Chloride 107 (98-107) mEq/L Carbon Dioxide 25 (23-29) mEq/L BUN 16 (6-20) mg/dL Creatinine 1.15 (0.70-1.30) mg/dL Glucose 110 H (70-105) mg/dL Calcium 8.4 L (8.6-10.3) mg/dL Adrenal panel 07/01/17 Range/Units 01:45 Sodium 140 (136-145) mEq/L Potassium 3.5 (3.5-5.1) mEq/L Chloride 107 (98-107) mEq/L Carbon Dioxide 25 (23-29) mEq/L BUN 16 (6-20) mg/dL Creatinine 1.15 (0.70-1.30) mg/dL Glucose 110 H (70-105) mg/dL Calcium 8.4 L (8.6-10.3) mg/dL Consult Discharge Plan - Plan Referrals: Marcial Adams MD [Primary Care Provider] -
--- NOTE | 2017-07-01 11:41 | Gastroenterology Consult Note ---
<Barb Peralta - Last Filed: 07/01/17 11:39> Date of Encounter: 07/01/17 Time of Encounter: 10:45 - Assessment and plan (1) Erosive esophagitis Current Visit: No Status: Acute Assessment and plan: s/p EGD by Dr Munguia that showed severe esophagitis. Continue BID protonix and carafate.Will repeat EGD in 2 weeks. (2) Chest pain Current Visit: No Status: Acute Assessment and plan: likely due to erosive esophagitis Qualifiers: Chest pain type: other chest pain Qualified Code(s): R07.89 - Other chest pain; R07.8 - Other chest pain - Time Spent With Patient Total time spent is greater than 50% in coordination of care (as documented) at patient's floor/unit and/or counseling patient: GI History of Present Illness - Data of Consult Patient: known to practice within the last 3 years Consult date: 07/01/17 Requesting Physician: Joss Butler MD - Consult Narrative Reason for consult: severe esophagitis History of present illness: Mr. Hernadez is a 57 year old male with prior history of Esophagitis, diabetes mellitus and schizophrenia who presents to the ED c/o 1 day of Nausea, Vomtiing , and Chest pain. Patient had similar admission in December of 2016. At that time he was diagnosed with a small hiatal hernia and erosive/ulcerated grade D esophagitis without bleeding. Follow-up endoscopy on 04/25/2017 showed resolution of prior noted esophagitis. Patient is schizophrenic and will say things like "I hurt because invisible people are punching me or because people reached down my throat and scratched my throat to stop me from being able to sing." Patient reports spitting up blood. He is on Protonix 40 mg by mouth twice a day at home. Is noted to be on multiple psych meds. He is status post EGD by Dr Munguia which showed severe esophagitis and GI was consulted. He reports he is feeling better than on admission. EGD: 06/29/17 Dr Munguia severe esophagitis 04/28 Dr Olivier rodriguez 12/25 erosive ulcerated esophagitis nSAIDS: none anticoagulants: none Past Med Surg Social Fam HX - Past Medical History Medical history: diabetes, hypertension Psychiatric history: schizophrenia, other - Past Surgical History Surgical History: no surgical history - Social History Smoking Status: Current every day smoker Smokeless Tobacco Status: No Alcohol use: occasionally Drug use: none Review of Systems: GI: as per [facility] GENERAL: denies fever or chills EYES: denies yellow discoloration ENT: denies pain with swallowing or difficulty swallowing CARDIO: denies chest pain, palpitations RESP: No Shortness of breath with exertion : denies change in color of urine NEURO: denies any weakness HEME: Denies any bruising MS: denies joint pain, joint swelling or back pain. DERM: denies rash or itching PSYCH:history of schizophrenia - Constitutional Vitals: Temp Pulse Resp BP Pulse Ox 99.0 F 74 17 140/83 94 07/01/17 11:11 07/01/17 11:11 07/01/17 11:11 07/01/17 11:11 07/01/17 07:30 Exam: CONSTITUTIONAL:~alert, no acute distress.~HEAD:~normocephalic.~EYES:~no jaundice.~NECK:~no obvious swelling.~HEART:~regular rate and rhythm, no murmurs. ~LUNGS:~bilateral fair air entry.~ABDOMEN:~non distended, soft, non tender, no masses palpable, no organomegaly.~RECTAL EXAM:~Deferred.~EXTREMITIES:~no clubbing, cyanosis or edema.~SKIN:~no stigmata of chronic liver disease.~ NEUROLOGIC:~no obvious focal defect.~~~~ Results - Labs CBC & Chem 7: 07/01/17 01:45 07/01/17 01:45 Labs: Last Result Calcium 8.4 mg/dL (8.6-10.3) L 07/01/17 01:45 Troponin I < 0.03 ng/mL (< 0.04) 06/28/17 17:27 Entire Visit Hgb 13.4 g/dL (12.9-16.9) 07/01/17 01:45 Hct 39.6 % (37.5-50.1) 07/01/17 01:45 PT 11.8 Seconds (9.4-12.1) 06/28/17 17:27 Amylase 77 Units/L (29-103) 06/28/17 17:27 Lipase < 3 Units/L (11-82) L 06/28/17 17:27 - ABG ABG results: PT/INR, D-dimer PT 11.8 Seconds (9.4-12.1) 06/28/17 17:27 Consult Discharge Plan - Plan Referrals: Carlos Enrique Monson DO [Resident] - 07/08/17 3:20 pm <Paulina Aguayo - Last Filed: 07/01/17 14:37> Date of Encounter: 07/01/17 Time of Encounter: 14:00 - Time Spent With Patient Total time spent is greater than 50% in coordination of care (as documented) at patient's floor/unit and/or counseling patient: GI History of Present Illness - Data of Consult Requesting Physician: Joss Butler MD - Consult Narrative History of present illness: Mr. Hernadez is a 57 year old male - Constitutional Vitals: Temp Pulse Resp BP Pulse Ox 99.0 F 74 17 140/83 94 07/01/17 11:11 07/01/17 11:11 07/01/17 11:11 07/01/17 11:11 07/01/17 07:30 Results - Labs CBC & Chem 7: 07/01/17 01:45 07/01/17 01:45 Labs: Last Result Calcium 8.4 mg/dL (8.6-10.3) L 07/01/17 01:45 Troponin I < 0.03 ng/mL (< 0.04) 06/28/17 17:27 Entire Visit Hgb 13.4 g/dL (12.9-16.9) 07/01/17 01:45 Hct 39.6 % (37.5-50.1) 07/01/17 01:45 PT 11.8 Seconds (9.4-12.1) 06/28/17 17:27 Amylase 77 Units/L (29-103) 06/28/17 17:27 Lipase < 3 Units/L (11-82) L 06/28/17 17:27 - ABG ABG results: PT/INR, D-dimer PT 11.8 Seconds (9.4-12.1) 06/28/17 17:27 - Attending Attestation I have personally performed a face to face evaluation on this patient. I have reviewed and agree with the care plan. History and Exam by me shows: Patient seen no active issues other than pain on swallowing. Recent EGD by Dr. Munguia did showed severe erosive esophagitis. Recommendation: Twice a day PPI and Carafate liquid 3 times a day. Repeat EGD to make sure esophagitis it is resolving in 2 months
[2017-07-01] MEDS: Insulin DETEMIR 100 UNIT/ML X5UNITS SQ SCH ×2 (11:57→21:00)
[2017-07-01] MEDS: Ringers Solution, Lactated 1,000 ML IVC SCH ×3 (12:00→22:52)
[2017-07-01] MEDS: OLANZapine 10 MG TAB.RAPDIS PO SCH ×2 (15:15→20:58)
[2017-07-01] MEDS: Lithium Carbonate 300 MG CAPSULE PO SCH (20:55)
--- NOTE | 2017-07-01 22:56 | Internal Med Progress Note ---
Date of Encounter: 07/01/17 Time of Encounter: 15:07 - Assessment and plan (1) Erosive esophagitis Current Visit: Yes Status: Acute Assessment and plan: S/P EGD on 06/29/17, which showed erosive esophagitis. There is concern for caustic ingestion. No e/o esophageal leak or mediastinitis. Surgery consulted ; appreciate input. GI consulted; appreciate input. Continue protonix and carafate. Start clear liquid diet. Continue IV Zosyn. (2) Schizophrenia Current Visit: No Status: Chronic Assessment and plan: Continue Haldol PRN for now. Keep psychiatry follow up in clinic. Qualifiers: Schizophrenia type: unspecified Qualified Code(s): F20.9 - Schizophrenia, unspecified (3) Leukocytosis Current Visit: Yes Status: Acute Assessment and plan: Improving. Suspicion for esophagitis as cause. Repeat CBC in AM. (4) Elevated serum creatinine Current Visit: Yes Status: Resolved Assessment and plan: Resolved. (5) Hypokalemia due to loss of potassium Current Visit: Yes Status: Resolved Assessment and plan: Resolved. (6) Type 2 diabetes mellitus Current Visit: Yes Status: Chronic Assessment and plan: Continue accuchecks and low dose SSI QID AC/HS. Continue home levemir at reduced dose; adjust with blood glucose readings. Qualifiers: Diabetes mellitus jail insulin use: with jail use Diabetes mellitus complication status: without complication Qualified Code(s): E11.9 - Type 2 diabetes mellitus without complications; Z79.4 - jail (current) use of insulin; Z79.4 - dedicated intermodal truck driver (current) use of insulin; Z79.4 - jail ( current) use of insulin; Z79.4 - jail (current) use of insulin (7) DVT prophylaxis Current Visit: Yes Status: Acute Assessment and plan: Continue SCDs. - Time Spent With Patient Total time spent is greater than 50% in coordination of care (as documented) at patient's floor/unit and/or counseling patient: less than 15 minutes - Subjective Interval history: Patient had no acute events overnight. He denies throat pain, chest pain, SOB, abdominal pain, nausea, vomiting, fever, or chills. He has no complaints today. - Constitutional Vitals: Temp Pulse Resp BP Pulse Ox 99.7 F H 73 16 167/87 96 07/01/17 20:25 07/01/17 21:00 07/01/17 20:25 07/01/17 20:25 07/01/17 20:25 General appearance: Present: cooperative, A&O X 3, pleasant, no acute distress, answers questions appropriately - Respiratory Respiratory exam: Present: CTAB. Absent: accessory muscle use, rales, rhonchi, wheezes Additional comments: Normal WOB - Cardiovascular Cardiovascular exam: Present: diastolic murmur, gallop, RRR, rubs, +S1, +S2, systolic murmur Additional comments: No BLE edema - GI/Abdominal GI/Abdominal exam: Present: normal bowel sounds, soft. Absent: distended, hepatomegaly, mass, splenomegaly, tenderness - Psychiatric Psychiatric exam: Present: normal affect, normal mood. Absent: agitated, anxious, depressed - Skin Skin exam: Present: dry, intact, warm. Absent: cyanosis, rash Internal Medicine: Result - Labs CBC & Chem 7: 07/01/17 01:45 07/01/17 01:45 - ABG Interpretation ABG results: PT/INR, D-dimer PT 11.8 Seconds (9.4-12.1) 06/28/17 17:27 - VTE Documentation of Mechanical Device: Intermittent pneumatic compression device Consult Discharge Plan - Plan Referrals: Carlos Enrique Monson DO [Resident] - 07/08/17 3:20 pm
[2017-07-02] MEDS: Piperacillin/Tazobactam 3.375 GM in 0.9 % Sodium Chloride Mini Bag 100 ML IVPB SCH ×4 (00:39→23:21)
--- NOTE | 2017-07-02 05:22 | Electrocardiograph Report ---
[address] [address] Test Date: 2017-06-28 Pat Name: Cresencio Hernadez Department: 104 Room: [facility] Gender: Tax Associate: TMR : 1960 Requested By: Farooq Erwin Order Number: [id number] Reading MD: Jagjit Thapa Measurements Intervals [place] Rate: 113 P: 56 NE: 164 QRS: 88 QRSD: 86 T: 64 QT: 358 QTc: 425 Interpretive Statements SINUS TACHYCARDIA ABNORMAL RHYTHM ECG Electronically Signed On 07-02-2017 5:20:55 EDT by Jagjit Thapa
[2017-07-02 08:07] LABS: Basophils # 0.1 K/mcL (0.0-0.2); Basophils % 0.6 %; Eosinophils # 0.3 K/mcL (0.0-0.6); Eosinophils % 2.7 %; Hematocrit 39.6 % (37.5-50.1); Hemoglobin 13.8 g/dL (12.9-16.9); Immature Granulocytes % 0.6 % (0-4); Lymphocytes % 20.7 %; Mean Corpuscular HGB Conc 34.8 g/dL (31.6-35.5); Mean Corpuscular Hemoglobin 29.5 pg (28.0-33.3); Mean Corpuscular Volume 84.6 fL (83.0-100.0); Monocytes # 0.9 K/mcL (0.0-1.3); Monocytes % 8.9 %; Neutrophils # 6.4 K/mcL (1.6-8.9); Platelet Count 270 K/mcL (140-400); Red Blood Count 4.68 M/mcL (4.19-5.50); Segmented Neutrophils % 66.5 %
[2017-07-02] MEDS: Ringers Solution, Lactated 1,000 ML IVC SCH ×3 (08:10→16:15)
[2017-07-02] MEDS: Insulin LISPRO 300 UNITS/3 ML VIAL SQ SCH ×3 (08:12→16:53)
[2017-07-02] MEDS: Insulin DETEMIR 100 UNIT/ML X5UNITS SQ SCH ×2 (08:12→21:34)
[2017-07-02 08:37] LABS: BUN/Creatinine Ratio 13 (6-26); Blood Urea Nitrogen 14 mg/dL (6-20); Calcium 8.3 mg/dL (8.6-10.3); Carbon Dioxide 24 mEq/L (23-29); Chloride 109 mEq/L (98-107); Glucose 182 mg/dL (70-105); Osmolality,Calculated 291 (280-300); Potassium 3.8 mEq/L (3.5-5.1); Sodium 138 mEq/L (136-145); eGFR For African Americans > 60 (> 60); eGFR For Non-African Americans > 60 (> 60)
[2017-07-02] MEDS: OLANZapine 10 MG TAB.RAPDIS PO SCH ×2 (13:51→21:34)
[2017-07-02] MEDS: Lithium Carbonate 300 MG CAPSULE PO SCH (21:34)
--- NOTE | 2017-07-02 22:39 | Internal Med Progress Note ---
Date of Encounter: 07/02/17 Time of Encounter: 08:57 - Assessment and plan (1) Erosive esophagitis Current Visit: Yes Status: Acute Assessment and plan: S/P EGD on 06/29/17, which showed erosive esophagitis. There is concern for caustic ingestion. No e/o esophageal leak or mediastinitis. Surgery consulted ; appreciate input. GI consulted; appreciate input. Continue protonix and carafate. Continue clear liquid diet; advance as tolerated. Continue IV Zosyn. Stable for transfer out of step down to general medical bed with telemetry today. (2) Schizophrenia Current Visit: Yes Status: Chronic Assessment and plan: Continue Haldol PRN for now. Keep psychiatry follow up in clinic. Qualifiers: Schizophrenia type: unspecified Qualified Code(s): F20.9 - Schizophrenia, unspecified (3) Leukocytosis Current Visit: Yes Status: Resolved Assessment and plan: Resolved. Suspicion for esophagitis as cause. (4) Elevated serum creatinine Current Visit: Yes Status: Resolved Assessment and plan: Resolved. (5) Hypokalemia due to loss of potassium Current Visit: Yes Status: Resolved Assessment and plan: Resolved. (6) Type 2 diabetes mellitus Current Visit: Yes Status: Chronic Assessment and plan: Continue accuchecks and low dose SSI QID AC/HS. Continue home levemir at reduced dose; adjust with blood glucose readings. (7) HTN (hypertension) Current Visit: Yes Status: Acute Assessment and plan: Continue hydralazine PRN. Due to continued elevated readings, start amlodipine 5 mg PO QD. Monitor vitals closely. Qualifiers: Hypertension type: essential hypertension Qualified Code(s): I10 - Essential (primary) hypertension (8) DVT prophylaxis Current Visit: Yes Status: Acute Assessment and plan: Continue SCDs. - Time Spent With Patient Total time spent is greater than 50% in coordination of care (as documented) at patient's floor/unit and/or counseling patient: less than 15 minutes - Subjective Interval history: Patient had no acute events overnight. He denies throat pain, chest pain, SOB, abdominal pain, nausea, vomiting, fever, or chills. He states that he is eating clear liquid diet without any issues. He has no complaints today. Nursing staff reports some elevated BP readings today. - Constitutional Vitals: Temp Pulse Resp BP Pulse Ox 98.4 F 72 17 146/89 93 07/02/17 19:27 07/02/17 19:27 07/02/17 19:27 07/02/17 19:27 07/02/17 19:27 General appearance: Present: cooperative, A&O X 3, pleasant, no acute distress, answers questions appropriately - Respiratory Respiratory exam: Present: CTAB. Absent: accessory muscle use, rales, rhonchi, wheezes Additional comments: Normal WOB - Cardiovascular Cardiovascular exam: Present: RRR, +S1, +S2. Absent: diastolic murmur, gallop, rubs, systolic murmur Additional comments: No BLE edema - GI/Abdominal GI/Abdominal exam: Present: normal bowel sounds, soft. Absent: distended, hepatomegaly, mass, splenomegaly, tenderness - Psychiatric Psychiatric exam: Present: normal affect, normal mood. Absent: agitated, anxious, depressed - Skin Skin exam: Present: dry, intact, warm. Absent: cyanosis, rash Internal Medicine: Result - Labs CBC & Chem 7: 07/02/17 07:57 07/02/17 07:57 Labs: Short CBC 07/02/17 Range/Units 07:57 WBC 9.7 (4.3-11.1) K/mcL Hgb 13.8 (12.9-16.9) g/dL Hct 39.6 (37.5-50.1) % Plt Count 270 (140-400) K/mcL Neutrophils # 6.4 (1.6-8.9) K/mcL BMP 07/02/17 07:57 Sodium 138 Potassium 3.8 Chloride 109 H Carbon Dioxide 24 BUN 14 Creatinine 1.08 Glucose 182 H Calcium 8.3 L - ABG Interpretation ABG results: PT/INR, D-dimer PT 11.8 Seconds (9.4-12.1) 06/28/17 17:27 - VTE Documentation of Mechanical Device: Intermittent pneumatic compression device Consult Discharge Plan - Plan Referrals: Carlos Enrique Monson DO [Resident] - 07/08/17 3:20 pm
[2017-07-02] MEDS: amLODIPine 5 MG TABLET PO SCH (23:21)
[2017-07-02] MEDS: Acetaminophen 325 MG TABLET PO PRN (23:21)
[2017-07-02] MEDS: Ondansetron 4 MG/2 ML VIAL IVP PRN (23:29)
[2017-07-03] MEDS: Ringers Solution, Lactated 1,000 ML IVC SCH ×2 (04:41→14:55)
[2017-07-03] MEDS: Acetaminophen 325 MG TABLET PO PRN ×3 (05:45→20:57)
--- NOTE | 2017-07-03 07:59 | Internal Med Progress Note ---
Date of Encounter: 07/03/17 Time of Encounter: 07:56 - Assessment and plan (1) Erosive esophagitis Current Visit: Yes Status: Acute Assessment and plan: Improving. S/P EGD on 06/29/17, which showed erosive esophagitis. There is concern for caustic ingestion. No e/o esophageal leak or mediastinitis. Surgery consulted; appreciate input. GI consulted; appreciate input. Continue protonix and carafate. Tolerating clear liquid diet; will advance to GI soft today. Continue IV Zosyn. Plan for discharge back to [facility] tomorrow if tolerating regular diet. (2) Schizophrenia Current Visit: Yes Status: Chronic Assessment and plan: Continue Haldol PRN for now. Keep psychiatry follow up in clinic. Qualifiers: Schizophrenia type: unspecified Qualified Code(s): F20.9 - Schizophrenia, unspecified (3) Leukocytosis Current Visit: Yes Status: Resolved Assessment and plan: Resolved. Suspicion for esophagitis as cause. (4) Elevated serum creatinine Current Visit: Yes Status: Resolved Assessment and plan: Resolved. (5) Hypokalemia due to loss of potassium Current Visit: Yes Status: Resolved Assessment and plan: Resolved. (6) Type 2 diabetes mellitus Current Visit: Yes Status: Chronic Assessment and plan: Continue accuchecks and low dose SSI QID AC/HS. Continue home levemir at reduced dose; adjust with blood glucose readings. (7) HTN (hypertension) Current Visit: Yes Status: Acute Assessment and plan: Continue amlodipine and hydralazine PRN. Monitor vitals closely. Qualifiers: Hypertension type: essential hypertension Qualified Code(s): I10 - Essential (primary) hypertension (8) DVT prophylaxis Current Visit: Yes Status: Acute Assessment and plan: Continue SCDs. - Time Spent With Patient Total time spent is greater than 50% in coordination of care (as documented) at patient's floor/unit and/or counseling patient: less than 15 minutes - Subjective Interval history: Patient had no acute events overnight. He denies throat pain, chest pain, SOB, abdominal pain, nausea, vomiting, fever, or chills. He states that he ate well yesterday without any issues. He has no complaints today. - Constitutional Vitals: Temp Pulse Resp BP Pulse Ox 98.4 F 58 18 159/84 97 07/03/17 07:21 07/03/17 07:21 07/03/17 07:21 07/03/17 07:21 07/03/17 07:21 General appearance: Present: cooperative, A&O X 3, pleasant, no acute distress, answers questions appropriately - Respiratory Respiratory exam: Present: CTAB. Absent: accessory muscle use, rales, rhonchi, wheezes Additional comments: Normal WOB - Cardiovascular Cardiovascular exam: Present: RRR, +S1, +S2. Absent: diastolic murmur, gallop, rubs, systolic murmur Additional comments: No BLE edema - GI/Abdominal GI/Abdominal exam: Present: normal bowel sounds, soft. Absent: distended, hepatomegaly, mass, splenomegaly, tenderness - Psychiatric Psychiatric exam: Present: normal affect, normal mood. Absent: agitated, anxious, depressed - Skin Skin exam: Present: dry, intact, warm. Absent: cyanosis, rash Internal Medicine: Result - Labs CBC & Chem 7: 07/02/17 07:57 07/02/17 07:57 Labs: Short CBC 07/02/17 Range/Units 07:57 WBC 9.7 (4.3-11.1) K/mcL Hgb 13.8 (12.9-16.9) g/dL Hct 39.6 (37.5-50.1) % Plt Count 270 (140-400) K/mcL Neutrophils # 6.4 (1.6-8.9) K/mcL BMP 07/02/17 07:57 Sodium 138 Potassium 3.8 Chloride 109 H Carbon Dioxide 24 BUN 14 Creatinine 1.08 Glucose 182 H Calcium 8.3 L - ABG Interpretation ABG results: PT/INR, D-dimer PT 11.8 Seconds (9.4-12.1) 06/28/17 17:27 - VTE Documentation of Mechanical Device: Intermittent pneumatic compression device Consult Discharge Plan - Plan Referrals: Carlos Enrique Monson DO [Resident] - 07/08/17 3:20 pm
[2017-07-03] MEDS: Piperacillin/Tazobactam 3.375 GM in 0.9 % Sodium Chloride Mini Bag 100 ML IVPB SCH ×2 (08:29→16:37)
[2017-07-03] MEDS: amLODIPine 5 MG TABLET PO SCH (08:34)
[2017-07-03] MEDS: Insulin LISPRO 300 UNITS/3 ML VIAL SQ SCH ×3 (08:34→16:39)
[2017-07-03] MEDS: Ondansetron 4 MG/2 ML VIAL IVP PRN (09:04)
[2017-07-03] MEDS: Insulin DETEMIR 100 UNIT/ML X5UNITS SQ SCH ×2 (09:34→20:57)
[2017-07-03] MEDS: Ondansetron 4 MG/2 ML VIAL IVP SCH ×2 (12:31→16:36)
[2017-07-03] MEDS: Magic Mouthwash 10 ML UD Cup PO SCH ×2 (12:41→16:39)
[2017-07-03] MEDS: OLANZapine 10 MG TAB.RAPDIS PO SCH ×2 (14:56→20:59)
[2017-07-03] MEDS: Lithium Carbonate 300 MG CAPSULE PO SCH (20:58)
[2017-07-04] MEDS: Piperacillin/Tazobactam 3.375 GM in 0.9 % Sodium Chloride Mini Bag 100 ML IVPB SCH ×4 (00:42→23:45)
[2017-07-04] MEDS: Ringers Solution, Lactated 1,000 ML IVC SCH ×3 (00:43→18:21)
[2017-07-04] MEDS: Acetaminophen 325 MG TABLET PO PRN ×2 (04:23→23:43)
--- NOTE | 2017-07-04 07:59 | Internal Med Progress Note ---
Date of Encounter: 07/04/17 Time of Encounter: 07:56 - Assessment and plan (1) Erosive esophagitis Current Visit: Yes Status: Acute Assessment and plan: Improved overall, but had some trouble with GI soft diet yesterday. S/P EGD on 06/29/17, which showed erosive esophagitis. There is concern for caustic ingestion. No e/o esophageal leak or mediastinitis. Surgery consulted; appreciate input. GI consulted; appreciate input. Continue protonix and carafate. Continue pretreatment of nausea and vomiting with IV zofran and PO magic mouthwash before meals. Continue IV Zosyn. Will ask GI to see him again as he is having trouble with diet. There may also be a psychiatric component to his anorexia, so will consult psychiatry today. Obtain labwork in AM. Plan for discharge back to detention once tolerating solid foods. (2) Schizophrenia Current Visit: Yes Status: Chronic Assessment and plan: Continue Haldol PRN for now. Will consult psychiatry today as per above. Keep psychiatry follow up in clinic. Qualifiers: Schizophrenia type: unspecified Qualified Code(s): F20.9 - Schizophrenia, unspecified (3) Leukocytosis Current Visit: Yes Status: Resolved Assessment and plan: Resolved. Suspicion for esophagitis as cause. (4) Elevated serum creatinine Current Visit: Yes Status: Resolved Assessment and plan: Resolved. (5) Hypokalemia due to loss of potassium Current Visit: Yes Status: Resolved Assessment and plan: Resolved. (6) Type 2 diabetes mellitus Current Visit: Yes Status: Chronic Assessment and plan: Continue accuchecks and low dose SSI QID AC/HS. Continue home levemir at reduced dose; adjust with blood glucose readings. (7) HTN (hypertension) Current Visit: Yes Status: Acute Assessment and plan: Increase amlodipine to 10 mg QD. Continue hydralazine PRN. Monitor vitals closely. Qualifiers: Hypertension type: essential hypertension Qualified Code(s): I10 - Essential (primary) hypertension (8) DVT prophylaxis Current Visit: Yes Status: Acute Assessment and plan: Continue SCDs. - Time Spent With Patient Total time spent is greater than 50% in coordination of care (as documented) at patient's floor/unit and/or counseling patient: less than 15 minutes - Subjective Interval history: Patient had no acute events overnight. He had some issues with GI soft diet yesterday. Nursing staff reports nausea and vomiting with lunch and dinner yesterday. He tolerated snack this AM; still awaiting breakfast. He has chest pain that is controlled by Tylenol. He denies throat pain, SOB, abdominal pain , fever, or chills. He has no other complaints today. - Constitutional Vitals: Temp Pulse Resp BP Pulse Ox 98.5 F 63 17 167/101 96 07/04/17 07:33 07/04/17 07:33 07/04/17 07:33 07/04/17 07:33 07/04/17 07:33 General appearance: Present: cooperative, A&O X 3, pleasant, no acute distress, answers questions appropriately - Respiratory Respiratory exam: Present: CTAB. Absent: accessory muscle use, rales, rhonchi, wheezes Additional comments: Normal WOB - Cardiovascular Cardiovascular exam: Present: RRR, +S1, +S2. Absent: diastolic murmur, gallop, rubs, systolic murmur Additional comments: No BLE edema - GI/Abdominal GI/Abdominal exam: Present: normal bowel sounds, soft. Absent: distended, hepatomegaly, mass, splenomegaly, tenderness - Psychiatric Psychiatric exam: Present: flat affect, normal mood. Absent: agitated, anxious , depressed - Skin Skin exam: Present: dry, intact, warm. Absent: cyanosis, rash Internal Medicine: Result - Labs CBC & Chem 7: 07/02/17 07:57 07/02/17 07:57 - ABG Interpretation ABG results: PT/INR, D-dimer PT 11.8 Seconds (9.4-12.1) 06/28/17 17:27 - VTE Documentation of Mechanical Device: Intermittent pneumatic compression device Consult Discharge Plan - Plan Referrals: Carlos Enrique Monson DO [Resident] - 07/08/17 3:20 pm
[2017-07-04] MEDS: Ondansetron 4 MG/2 ML VIAL IVP SCH ×3 (08:28→18:16)
[2017-07-04] MEDS: amLODIPine 5 MG TABLET PO SCH (08:29)
[2017-07-04] MEDS: Magic Mouthwash 10 ML UD Cup PO SCH ×3 (08:29→18:25)
[2017-07-04] MEDS: Insulin LISPRO 300 UNITS/3 ML VIAL SQ SCH ×3 (08:31→18:24)
[2017-07-04] MEDS: Insulin DETEMIR 100 UNIT/ML X5UNITS SQ SCH ×2 (09:00→21:33)
--- NOTE | 2017-07-04 15:04 | Consult Note ---
Date of Encounter: 07/04/17 Time of Encounter: 13:40 Assessment & Recommendation (1) Schizophrenia Current visit: Yes Status: Chronic Assessment & Recommendation: discontinue prolixin , get lithium level stat start cogentin /benztropin 1 mg bid continue 30 mg olanzapine. lithium will be adjusted after level. Qualifiers: Schizophrenia type: unspecified Qualified Code(s): F20.9 - Schizophrenia, unspecified (2) Nausea and vomiting Current visit: Yes Status: Acute Qualifiers: Vomiting type: unspecified Vomiting Intractability: unspecified Qualified Code(s): R11.2 - Nausea with vomiting, unspecified (3) Esophageal abnormality Current visit: No Status: Acute (4) Type 2 diabetes mellitus Current visit: Yes Status: Chronic Qualifiers: Diabetes mellitus [facility] insulin use: with bed bug exterminator use Diabetes mellitus complication status: without complication Qualified Code(s): E11.9 - Type 2 diabetes mellitus without complications; Z79.4 - retirement (current) use of insulin; Z79.4 - retirement (current) use of insulin; Z79.4 - intermediate project manager ( current) use of insulin; Z79.4 - intermediate project manager (current) use of insulin History of Present Illness Patient: new to practice Requesting Physician: Joss Butler MD Reason for consult: not eating probably secondary to psychiatric issues, History of present illness: Mr. Hernadez is a 57 year old male was consulted today as has h/o Schizophrenia and has not been eating which could be probable secondary to psychiatric reason. Cc I am in pain. I can not eat , i have inflammed throat and i vomit when i eat. i can take liquids. Patient with h/o Schizophrenia , lives [facility] , and on 2 anti psychotics and lithium. He has at times disorganized thought process like we are time travellers and we send spells to world , but is redirect able and will answer question. he is poor historian , he states he does not eat not because he thinks something wrong with food orpoison but because he can not as it hurts. At present no si/hi, has low grade paranoia and some disorganized thought process which could be his baseline. He is oriented x3 , good eye contact , cooperative and verbal. A/P h/o Schizophrenia/Schizoaffective Disorder oesophagitis Rec: please DC prolixin start cogentin 1 mg bid Get [place] level continue olanzapine. Thank you for consult , will follow up. CC: Joss Butler MD Past Med Surg Social Fam HX - Past Medical History Medical history: diabetes, hypertension - Past Psychiatric History Psychiatric history: Reports: schizophrenia, previous psychiatric hospitalization Family psychiatric history: Unknown Family History of Suicide: Unknown - Past Surgical History Surgical History: no surgical history - Social History Smoking Status: Current every day smoker Smokeless Tobacco Status: No Alcohol use: occasionally Drug use: none Medications & Allergies Fluphenazine [Prolixin] 10 mg PO HS 08/13/15 [History] [place] Carbonate 900 mg PO HS 08/13/15 [History] OLANZapine [Zyprexa] 10 mg PO 1400 08/13/15 [History] OLANZapine [Zyprexa] 20 mg PO HS 08/13/15 [History] Atorvastatin [Lipitor] 40 mg PO HS #30 tablet 08/16/15 [Rx] Insulin ASPART [Novolog Flexpen] 4 - 8 unit SQ TID PRN 12/12/16 [History] Insulin DETEMIR [Levemir Flextouch] 48 unit SQ BID 12/12/16 [History] Pantoprazole Sodium 40 mg PO BID #60 tablet. 12/14/16 [Rx] HYDROcodone/Acet 5/325 mg [[place] 5-325 mg] 1 - 2 tab PO Q6H PRN 04/25/17 [ History] 3 Allergy/AdvReac Type Severity Reaction Status Date / Time haloperidol [From Haldol] Allergy See Verified 06/28/17 19:57 Comments Review of Systems Psychiatric: Reports: other Psychiatry Exam - Constitutional Vitals: Temp Pulse Resp BP Pulse Ox 98.5 F 101 15 153/88 92 07/04/17 14:14 07/04/17 14:14 07/04/17 14:14 07/04/17 14:14 07/04/17 14:14 General appearance: age & developmentally appropriate - Musculoskeletal Station: relaxed Strength & Tone: normal for patient - Psychiatric Patient Orientation: Yes Person, Yes Time, Yes Place Level of alertness: Alert Behavior: cooperative Psychomotor activity: Normal Eye Contact: Maintains Eye Contact Mood Description: Anxious Affect description: blunted Speech Volume: Normal Language & Vocabulary: consistent with education Thought Process: Circumstantial, Loose Associations Thought Content: Yes Paranoid delusion Attention Span Ability: Unable to Sustain Attention Memory Description: Grossly Intact Patient Reliability: Questionable Historian Fund of knowledge: Yes abstraction ability, Yes aware of current events Judgment: Limited Insight: Partial Results - Labs Labs: Laboratory Last Values WBC 9.7 K/mcL (4.3-11.1) 07/02/17 07:57 RBC 4.68 M/mcL (4.19-5.50) 07/02/17 07:57 Hgb 13.8 g/dL (12.9-16.9) 07/02/17 07:57 Hct 39.6 % (37.5-50.1) 07/02/17 07:57 MCV 84.6 fL (83.0-100.0) 07/02/17 07:57 MCH 29.5 pg (28.0-33.3) 07/02/17 07:57 MCHC 34.8 g/dL (31.6-35.5) 07/02/17 07:57 RDW 13.0 % (11.5-14.5) 07/02/17 07:57 Plt Count 270 K/mcL (140-400) 07/02/17 07:57 MPV 10.0 fL (9.4-12.4) 07/02/17 07:57 Immature Gran % 0.6 % (0-4) 07/02/17 07:57 Seg Neutrophils % 66.5 % 07/02/17 07:57 Lymphocytes % 20.7 % 07/02/17 07:57 Monocytes % 8.9 % 07/02/17 07:57 Eosinophils % 2.7 % 07/02/17 07:57 Basophils % 0.6 % 07/02/17 07:57 Neutrophils # 6.4 K/mcL (1.6-8.9) 07/02/17 07:57 Lymphocytes # 2.0 K/mcL (0.6-4.6) 07/02/17 07:57 Monocytes # 0.9 K/mcL (0.0-1.3) 07/02/17 07:57 Eosinophils # 0.3 K/mcL (0.0-0.6) 07/02/17 07:57 Basophils # 0.1 K/mcL (0.0-0.2) 07/02/17 07:57 PT 11.8 Seconds (9.4-12.1) 06/28/17 17:27 INR 1.1 06/28/17 17:27 APTT 28.3 Seconds (26.0-36.0) 06/28/17 17:27 Sodium 138 mEq/L (136-145) 07/02/17 07:57 Potassium 3.8 mEq/L (3.5-5.1) 07/02/17 07:57 Chloride 109 mEq/L (98-107) H 07/02/17 07:57 Carbon Dioxide 24 mEq/L (23-29) 07/02/17 07:57 BUN 14 mg/dL (6-20) 07/02/17 07:57 Creatinine 1.08 mg/dL (0.70-1.30) 07/02/17 07:57 Est GFR ( Amer) > 60 (> 60) 07/02/17 07:57 Est GFR (Non-Af Amer) > 60 (> 60) 07/02/17 07:57 BUN/Creatinine Ratio 13 (6-26) 07/02/17 07:57 Glucose 182 mg/dL (70-105) H 07/02/17 07:57 POC Glucose 157 mg/dL (70-99) H 07/04/17 10:52 Calculated Osmolality 291 (280-300) 07/02/17 07:57 Calcium 8.3 mg/dL (8.6-10.3) L 07/02/17 07:57 Magnesium 2.0 mg/dL (1.6-2.6) 06/29/17 02:55 Troponin I < 0.03 ng/mL (< 0.04) 06/28/17 17:27 Amylase 77 Units/L (29-103) 06/28/17 17:27 Lipase < 3 Units/L (11-82) L 06/28/17 17:27 Consult Discharge Plan - Plan Instructions: Gastritis (DC), Corrosive Esophagitis (DC) Referrals: Carlos Enrique Monson DO [Resident] - 07/08/17 3:20 pm
[2017-07-04] MEDS: OLANZapine 10 MG TAB.RAPDIS PO SCH ×2 (18:16→21:31)
[2017-07-04] MEDS: Lithium Carbonate 300 MG CAPSULE PO SCH (21:31)
[2017-07-05 06:04] LABS: Eosinophils % 2.9 %; Hematocrit 41.8 % (37.5-50.1); Hemoglobin 14.8 g/dL (12.9-16.9); Immature Granulocytes % 1.3 % (0-4); Lymphocytes % 26.4 %; Mean Corpuscular HGB Conc 35.4 g/dL (31.6-35.5); Mean Corpuscular Hemoglobin 28.9 pg (28.0-33.3); Mean Corpuscular Volume 81.6 fL (83.0-100.0); Mean Platelet Volume 10.2 fL (9.4-12.4); Monocytes % 11.7 %; Platelet Count 334 K/mcL (140-400); Red Blood Count 5.12 M/mcL (4.19-5.50); Red Cell Distribution Width 13.2 % (11.5-14.5); Segmented Neutrophils % 56.7 %
[2017-07-05 06:05] LABS: Basophils # 0.1 K/mcL (0.0-0.2); Eosinophils # 0.3 K/mcL (0.0-0.6); Monocytes # 1.3 K/mcL (0.0-1.3); Neutrophils # 6.5 K/mcL (1.6-8.9)
[2017-07-05 06:15] LABS: BUN/Creatinine Ratio 11 (6-26); Blood Urea Nitrogen 12 mg/dL (6-20); Calcium 8.8 mg/dL (8.6-10.3); Carbon Dioxide 22 mEq/L (23-29); Chloride 109 mEq/L (98-107); Glucose 193 mg/dL (70-105); Osmolality,Calculated 291 (280-300); Potassium 4.1 mEq/L (3.5-5.1); Sodium 138 mEq/L (136-145); eGFR For African Americans > 60 (> 60); eGFR For Non-African Americans > 60 (> 60)
[2017-07-05] MEDS ORDERED: Lithium Carbonate 300 MG CAPSULE PO STA (07:42)
--- NOTE | 2017-07-05 08:05 | Discharge Summary ---
- NOTES TO OUTPATIENT PROVIDER Notes to Outpatient Provider: Follow up with PCP in 2-3 days after discharged. Check lithium level and adjust lithium dose accordingly. Recheck BMP ( hypokalemia and PATRICIO). Follow up with psychiatrist as directed. Date of Encounter: 07/05/17 Time of Encounter: 08:03 - Discharge Diagnosis (1) Erosive esophagitis Priority: Primary Status: Acute (2) Schizophrenia Priority: Secondary Status: Chronic Qualifiers: Schizophrenia type: unspecified Qualified Code(s): F20.9 - Schizophrenia, unspecified (3) Leukocytosis Priority: Secondary Status: Resolved (4) Elevated serum creatinine Priority: Secondary Status: Resolved (5) Hypokalemia due to loss of potassium Priority: Secondary Status: Resolved (6) Type 2 diabetes mellitus Priority: Secondary Status: Chronic (7) HTN (hypertension) Priority: Secondary Status: Acute Qualifiers: Hypertension type: essential hypertension Qualified Code(s): I10 - Essential (primary) hypertension (8) DVT prophylaxis Priority: Secondary Status: Acute Hospital course: Mr. Hernadez is a 57 year old male admitted for esophagitis, likely erosive. He was admitted to general medical floor. He was started on IV zosyn. Home PPI was continued. He was started on sucralfate. GI was consulted. He was made NPO and started on IVF. Creatinine improved with hydration. He had some hypokalemia which was repleted. Leukocytosis improved throughout hospitalization. He was taken to EGD, which showed severe esophagitis, with concern for caustic ingestion. He was transferred to step down unit after EGD due to respiratory difficulties. Respiratory status improved over next 2 days, and he was transferred to general medical floor. He was started on clear liquid diet, and this was advanced to GI soft diet. He initially had issues with soft diet, so magic mouthwash and scheduled zofran pre-meals was added. Snorkelling Instructor was consulted, and they recommended advanced soft diet with chopped meats and Ensure Enlive supplementation TIDAC. Psychiatry was consulted due to diet difficulties as it was thought that his schizophrenia was playing a role in his poor diet. Psychiatrist obtained lithium panel, and recommended discontinuation of prolixin and addition of cogentin. [place] level was low, so he will be discharged on higher dose of lithium. [place] level will be rechecked at follow up with PCP in 2-3 days. Today, he is tolerating breakfast without any issues. Patient has met maximum benefit of this hospitalization and will be discharged back to [facility] in stable condition. Discharge discussed with: patient, nurse, other (Pharmacist) - Time Spent with Patient Total time spent providing and/or coordinating discharge services: Greater than 30 minutes - Discharge Medications Prescriptions: Metoclopramide [Reglan] 5 mg IVP Q6HR PRN 7 Days #28 vial PRN Reason: Nausea And Vomiting amLODIPine [Norvasc] 10 mg PO DAILY 7 Days #7 tablet Benztropine [Cogentin] 1 mg PO BID 7 Days #14 tablet Sucralfate [Carafate] 1 gm PO QIDAC 7 Days #28 tablet Home Medications: Fluphenazine [Prolixin] 10 mg PO HS 08/13/15 [History] OLANZapine [Zyprexa] 10 mg PO 1400 08/13/15 [History] OLANZapine [Zyprexa] 20 mg PO HS 08/13/15 [History] Atorvastatin [Lipitor] 40 mg PO HS #30 tablet 08/16/15 [Rx] Insulin ASPART [Novolog Flexpen] 4 - 8 unit SQ TID PRN 12/12/16 [History] Insulin DETEMIR [Levemir Flextouch] 48 unit SQ BID 12/12/16 [History] Pantoprazole Sodium 40 mg PO BID #60 tablet. 12/14/16 [Rx] HYDROcodone/Acet 5/325 mg [[place] 5-325 mg] 1 - 2 tab PO Q6H PRN 04/25/17 [ History] Benztropine [Cogentin] 1 mg PO BID 7 Days #14 tablet 07/05/17 [Rx] Metoclopramide [Reglan] 5 mg IVP Q6HR PRN 7 Days #28 vial 07/05/17 [Rx] Sucralfate [Carafate] 1 gm PO QIDAC 7 Days #28 tablet 07/05/17 [Rx] amLODIPine [Norvasc] 10 mg PO DAILY 7 Days #7 tablet 07/05/17 [Rx] Allergies/Adverse Reactions: 3 Allergy/AdvReac Type Severity Reaction Status Date / Time haloperidol [From Haldol] Allergy See Verified 06/28/17 19:57 Comments Date of admission: 07/01/17 15:27 Primary care physician: Marcial Adams, Consults: 07/03/17 07:49 consult to hand embroiderer [Consult to Nutrition] [CONS] Routine Comment: Please evaluate nutritional needs (esophagitis). Consulting Provider: NUTRITION Reason for Dietary Consult: PO Supplementation 07/03/17 07:55 Consult to Joinery Factory Worker [CONS] Routine Reason for SW Consult: discharge to [facility] 07/04/17 07:51 Consult to Gastroenterology [CONS] Routine Consulting Provider: Gastroenterology Jacquie Reason for Consult: Patient unable to tolerate diet. Can you please see patient again today? Please call me with any questions ([phone]). Thanks. Time Notified: 07:50 Call Completed: No 07/04/17 07:53 Consult to Psychiatry [CONS] Routine Consulting Provider: Psychiatry Jacquie Reason for Consult: Patient with history of schizophrenia, currently with delusions and hallucinations. He is admitted for esophagitis, which has clinically improved , but he is still not tolerating diet. I believe he may not be eating due to psychiatric issues. Please evaluate and follow along. You can call me with any questions ). Thanks. Time Notified: 07:54 Call Completed: No Discharging clinician: Giorgio Masterson Anticipated date of discharge: 07/05/17 - Constitutional Vitals: Temp Pulse Resp BP Pulse Ox 97.6 F 89 18 177/107 97 07/05/17 07:47 07/05/17 07:47 07/05/17 07:47 07/05/17 07:47 07/05/17 07:47 General appearance: Present: cooperative, A&O X 3, pleasant, no acute distress, answers questions appropriately - Respiratory Respiratory exam: Present: CTAB. Absent: accessory muscle use, rales, rhonchi, wheezes Additional comments: Normal WOB - Cardiovascular Cardiovascular exam: Present: RRR, +S1, +S2. Absent: diastolic murmur, gallop, rubs, systolic murmur Additional comments: No BLE edema - GI/Abdominal GI/Abdominal exam: Present: normal bowel sounds, soft. Absent: distended, hepatomegaly, mass, splenomegaly, tenderness - Psychiatric Psychiatric exam: Present: flat affect, normal mood. Absent: agitated, anxious , depressed Additional comments: Exhibits some delusional thoughts - Skin Skin exam: Present: dry, intact, warm. Absent: cyanosis, rash - Patient Status Disposition: Transfer Other Condition: Good Overall status at discharge: patient is progressing back to baseline - Discharge Instructions Instructions: Gastritis (DC), Corrosive Esophagitis (DC) Follow Up With: Carlos Enrique Monson DO [Resident] - 07/08/17 3:20 pm Additional Instructions: Follow up with PCP in 2-3 days after discharged. Check lithium level and adjust lithium dose accordingly. Recheck BMP (hypokalemia and PATRICIO). Follow up with psychiatrist as directed. - Diet and Activity Activity: resume usual activities as tolerated Diet: diabetic diet, other (Advanced Soft Diet with Chopped Meat and Ensure Enlive Supplementation TIDAC. Advance as tolerated.) - VTE Documentation of Mechanical Device: Intermittent pneumatic compression device
[2017-07-05] MEDS: Magic Mouthwash 10 ML UD Cup PO SCH ×2 (08:16→08:18)
[2017-07-05] MEDS: Ondansetron 4 MG/2 ML VIAL IVP SCH ×2 (08:17→11:53)
[2017-07-05] MEDS: Acetaminophen 325 MG TABLET PO PRN (08:17)
[2017-07-05] MEDS: amLODIPine 5 MG TABLET PO SCH (08:17)
[2017-07-05] MEDS: Insulin DETEMIR 100 UNIT/ML X5UNITS SQ SCH (08:18)
[2017-07-05] MEDS: Piperacillin/Tazobactam 3.375 GM in 0.9 % Sodium Chloride Mini Bag 100 ML IVPB SCH (08:18)
--- NOTE | 2017-07-05 08:20 | Physician Discharge Referral ---
ExtendedCare Referral Info Transfer To: [facility] Provider in Charge after Transfer: PCP Institutional Level of Care: Skilled - Diagnosis (1) Erosive esophagitis Priority: Primary Status: Acute (2) Schizophrenia Priority: Secondary Status: Chronic (3) Leukocytosis Priority: Secondary Status: Resolved (4) Elevated serum creatinine Priority: Secondary Status: Resolved (5) Hypokalemia due to loss of potassium Priority: Secondary Status: Resolved (6) Type 2 diabetes mellitus Priority: Secondary Status: Chronic (7) HTN (hypertension) Priority: Secondary Status: Acute (8) DVT prophylaxis Priority: Secondary Status: Acute Prognosis: Fair Aware of Diagnosis: Patient Aware of Prognosis: Patient - Transfer Medications Prescriptions: Metoclopramide [Reglan] 5 mg IVP Q6HR PRN 7 Days #28 vial PRN Reason: Nausea And Vomiting amLODIPine [Norvasc] 10 mg PO DAILY 7 Days #7 tablet Benztropine [Cogentin] 1 mg PO BID 7 Days #14 tablet Sucralfate [Carafate] 1 gm PO QIDAC 7 Days #28 tablet Home Medications: Fluphenazine [Prolixin] 10 mg PO HS 08/13/15 [History] OLANZapine [Zyprexa] 10 mg PO 1400 08/13/15 [History] OLANZapine [Zyprexa] 20 mg PO HS 08/13/15 [History] Atorvastatin [Lipitor] 40 mg PO HS #30 tablet 08/16/15 [Rx] Insulin ASPART [Novolog Flexpen] 4 - 8 unit SQ TID PRN 12/12/16 [History] Insulin DETEMIR [Levemir Flextouch] 48 unit SQ BID 12/12/16 [History] Pantoprazole Sodium 40 mg PO BID #60 tablet.dr 12/14/16 [Rx] HYDROcodone/Acet 5/325 mg [[place] 5-325 mg] 1 - 2 tab PO Q6H PRN 04/25/17 [ History] Benztropine [Cogentin] 1 mg PO BID 7 Days #14 tablet 07/05/17 [Rx] Metoclopramide [Reglan] 5 mg IVP Q6HR PRN 7 Days #28 vial 07/05/17 [Rx] Sucralfate [Carafate] 1 gm PO QIDAC 7 Days #28 tablet 07/05/17 [Rx] amLODIPine [Norvasc] 10 mg PO DAILY 7 Days #7 tablet 07/05/17 [Rx] Allergies/Adverse Reactions: 3 Allergy/AdvReac Type Severity Reaction Status Date / Time haloperidol [From Haldol] Allergy See Verified 06/28/17 19:57 Comments - Respiratory Orders None Smoking Cessation: Smoking cessation has been advised. For more information, call the [place] Tobacco Quit Line at 7-297-TJMA-NOW. - Lab Orders Lab Orders: Other (include drug levels w/frequency) (Check lithium level in 2-3 days after dischargedd with PCP.) - Diet Orders No Concentrated Sweets (Advanced Soft Diet with Chopped Meats and Ensure Enlive Supplementation TIDAC) CERTIFICATION: I certify that the transfer of the above named patient to an Extended Care Facility is necessary for the continuing treatment of the diagnosis listed. The above information is true and accurate reflection of patient's current condition. Confidential - Redisclosure prohibited without a patient's written consent.
[2017-07-05] MEDS: Insulin LISPRO 300 UNITS/3 ML VIAL SQ SCH ×2 (08:21→11:52)
[2017-07-05 11:43] VITALS: BP 156/105
[2017-07-05] MEDS ORDERED: Lithium Carbonate 300 MG CAPSULE PO SCH (21:00)
== END 2017-07-05 14:01 | disposition other institution (70) | DRG 382 ==
LOC: EMEROO 17:17 → 3NENU 17:17 → 2NNU 06-29 18:11 → 3BNU 07-02 10:53
PROVIDERS: ADMIT Internal Medicine; ATTEND Internal Medicine
PROC: ENDOEBX (2017-06-29 17:00)

== ENCOUNTER 2019-12-10 00:33 | Observation (INO) ==
[2019-12-10] MEDS ORDERED: Pantoprazole 40 MG VIAL IVP ONE (00:42)
[2019-12-10] MEDS ORDERED: *HR* FentaNYL (PF) 100 MCG/2 ML VIAL IVP ONE (00:42)
[2019-12-10] MEDS ORDERED: 0.9 % Sodium Chloride 1,000 ML IVC ONE (00:42)
[2019-12-10] MEDS ORDERED: Ondansetron 4 MG/2 ML VIAL IVP ONE ×2 (00:42→02:54)
[2019-12-10 01:36] LABS: Basophils % 0.3 %; Hematocrit 46.4 % (37.5-50.1); Hemoglobin 15.6 g/dL (12.9-16.9); Immature Granulocytes % 0.6 % (0-4); Lymphocytes # 1.1 K/mcL (0.6-4.6); Lymphocytes % 7.9 %; Mean Corpuscular HGB Conc 33.6 g/dL (31.6-35.5); Mean Corpuscular Hemoglobin 28.3 pg (28.0-33.3); Mean Corpuscular Volume 84.2 fL (83.0-100.0); Monocytes # 0.6 K/mcL (0.0-1.3); Neutrophils # 12.3 K/mcL (1.6-8.9); Platelet Count 380 K/mcL (140-400); Red Blood Count 5.51 M/mcL (4.19-5.50); Red Cell Distribution Width 13.7 % (11.5-14.5); Segmented Neutrophils % 87.2 %; White Blood Count 14.1 K/mcL (4.3-11.1)
[2019-12-10 02:01] LABS: Alanine Aminotransferase 21 Units/L (7-52); Albumin 4.7 g/dL (3.5-5.7); Albumin/Globulin Ratio 1.6 (1.1-2.2); Alkaline Phosphatase 169 Units/L (34-104); Aspartate Amino Transferase 13 Units/L (13-39); BUN/Creatinine Ratio 10 (6-26); Bilirubin,Direct 0.1 mg/dL (0.0-0.2); Bilirubin,Indirect 0.5 mg/dL (0.0-1.0); Bilirubin,Total 0.6 mg/dL (0.3-1.0); Blood Urea Nitrogen 13 mg/dL (6-20); Calcium 9.9 mg/dL (8.6-10.3); Carbon Dioxide 26 mEq/L (23-29); Chloride 98 mEq/L (98-107); Glucose 267 mg/dL (70-105); Lipase 3 Units/L (11-82); Osmolality,Calculated 293 (280-300); Potassium 3.8 mEq/L (3.5-5.1); Sodium 137 mEq/L (136-145); Total Protein 7.7 g/dL (6.4-8.9); Troponin I < 0.03 ng/mL (< 0.04); eGFR For African Americans > 60 (> 60); eGFR For Non-African Americans 58 (> 60)
[2019-12-10] MEDS ORDERED: Naloxone 0.4 MG/ML INJ IVP PRN (04:40)
[2019-12-10] MEDS ORDERED: Ondansetron 4 MG/2 ML VIAL IVP PRN (04:40)
[2019-12-10] MEDS ORDERED: Ringers Solution, Lactated 1,000 ML IVC SCH (04:45)
[2019-12-10] MEDS ORDERED: *HR* Dextrose 50 % in Water (Vial) 50 ML VIAL IVP PRN (04:48)
[2019-12-10] MEDS ORDERED: D5% in Water 1,000 ML IVC PRN (04:48)
[2019-12-10] MEDS ORDERED: Dextrose Gel 15 GM/37.5 ML TUBE PO PRN ×2 (04:48)
[2019-12-10 05:14] LABS: Adenovirus Not Detected (Not Detect); Bordetella Pertussis Not Detected (Not Detect); Chlamydophila pneumoniae Not Detected (Not Detect); Coronavirus 229E Not Detected (Not Detect); Coronavirus HKU1 Not Detected (Not Detect); Coronavirus NL63 Not Detected (Not Detect); Coronavirus OC43 Not Detected (Not Detect); Human Metapneumovirus Not Detected (Not Detect); Human Rhinovirus/Enterovirus Not Detected (Not Detect); Influenza A Subtype 2009 H1 Not Detected (Not Detect); Influenza B Not Detected (Not Detect); Mycoplasma pneumoniae Not Detected (Not Detect); Parainfluenza Virus 1 Not Detected (Not Detect); Parainfluenza Virus 2 Not Detected (Not Detect); Parainfluenza Virus 3 Not Detected (Not Detect); Parainfluenza Virus 4 Not Detected (Not Detect); Respiratory Syncytial Virus Not Detected (Not Detect); SARS-CoV-2 Not Detected (Not Detect)
[2019-12-10] MEDS ORDERED: Pantoprazole 40 MG VIAL IVP SCH ×2 (06:00→18:00)
[2019-12-10 06:59] LABS: Hematocrit 44.2 % (37.5-50.1)
[2019-12-10 07:01] LABS: INR 1.1; Prothrombin Time 12.1 Seconds (9.4-12.1)
[2019-12-10 07:04] LABS: Activated Partial Thrombo Time 32.3 Seconds (26.0-36.0)
[2019-12-10] MEDS ORDERED: Piperacillin/Tazobactam 3.375 GM in 0.9 % Sodium Chloride Mini Bag 100 ML IVPB SCH (08:00)
[2019-12-10] MEDS ORDERED: cefTRIAXone 1,000 MG in Water for inj. (sterile) 10 ML IVP SCH (09:00)
[2019-12-10] MEDS: Insulin LISPRO 300 UNITS/3 ML VIAL SQ SCH ×2 (09:03→13:29)
[2019-12-10 16:23] VITALS: BP 156/84
[2019-12-10] MEDS ORDERED: NON-FORMULARY MEDICATION 1 EACH EACH (Insulin Aspart [Novolog Flexpen] 4 UNIT) SQ PRN (17:04)
[2019-12-10] MEDS ORDERED: *HR* Propofol 200 MG/20 ML VIAL IVP ONE (18:27)
[2019-12-10] MEDS ORDERED: Lidocaine -MPF 2% 5 ML VIAL SQ ONE (18:27)
[2019-12-10] MEDS ORDERED: FluPHENAZine 10 MG TABLET PO SCH (21:00)
[2019-12-10] MEDS ORDERED: Lithium Carbonate ER 450 MG TABLET.ER PO SCH (21:00)
[2019-12-10] MEDS ORDERED: OLANZapine 10 MG TAB.RAPDIS PO SCH (21:00)
[2019-12-10] MEDS ORDERED: Insulin DETEMIR 100 UNIT/ML X5UNITS SQ SCH (21:00)
[2019-12-11] MEDS ORDERED: amLODIPine 5 MG TABLET PO SCH (09:00)
[2019-12-11] MEDS ORDERED: NON-FORMULARY MEDICATION 1 EACH EACH (Omeprazole [Prilosec] 40 MG) PO SCH (09:00)
== END 2019-12-10 18:28 | disposition home or self-care (01) ==
LOC: EMEROOARM 00:33 → CDU 00:33 → SUATTDRO 03:41 → CDU 09:59
PROVIDERS: ADMIT Family Medicine; ATTEND Internal Medicine
PROC: ENDOEBX (2019-12-10 17:00)

== ENCOUNTER 2020-01-03 10:51 | Inpatient (IN) ==
[2020-01-03 12:12] LABS: Basophils # 0.1 K/mcL (0.0-0.2); Basophils % 0.7 %; Eosinophils # 0.1 K/mcL (0.0-0.6); Eosinophils % 1.2 %; Hematocrit 49.3 % (37.5-50.1); Hemoglobin 16.7 g/dL (12.9-16.9); Immature Granulocytes % 0.5 % (0-4); Lymphocytes # 2.2 K/mcL (0.6-4.6); Lymphocytes % 23.8 %; Mean Corpuscular HGB Conc 33.9 g/dL (31.6-35.5); Mean Corpuscular Hemoglobin 28.4 pg (28.0-33.3); Mean Platelet Volume 10.2 fL (9.4-12.4); Monocytes # 0.8 K/mcL (0.0-1.3); Monocytes % 8.2 %; Nucleated Red Blood Cells 0.2 /100 WBC (0); Platelet Count 358 K/mcL (140-400); Red Blood Count 5.87 M/mcL (4.19-5.50); Segmented Neutrophils % 65.6 %; White Blood Count 9.2 K/mcL (4.3-11.1)
[2020-01-03 12:32] LABS: Alanine Aminotransferase 41 Units/L (7-52); Albumin/Globulin Ratio 1.6 (1.1-2.2); Alkaline Phosphatase 137 Units/L (34-104); Aspartate Amino Transferase 21 Units/L (13-39); BUN/Creatinine Ratio 14 (6-26); Bilirubin,Direct 0.1 mg/dL (0.0-0.2); Bilirubin,Indirect 0.5 mg/dL (0.0-1.0); Bilirubin,Total 0.6 mg/dL (0.3-1.0); Blood Urea Nitrogen 15 mg/dL (6-20); Calcium 9.1 mg/dL (8.6-10.3); Carbon Dioxide 33 mEq/L (23-29); Chloride 91 mEq/L (98-107); Globulin 2.5 g/dL (2.4-3.5); Glucose 77 mg/dL (70-105); Lipase 8 Units/L (11-82); Osmolality,Calculated 276 (280-300); Potassium 3.1 mEq/L (3.5-5.1); Sodium 133 mEq/L (136-145); Total Protein 6.5 g/dL (6.4-8.9); eGFR For African Americans > 60 (> 60); eGFR For Non-African Americans > 60 (> 60)
[2020-01-03 13:55] LABS: Bacteria,Urine Few per hpf (None-Few); Bilirubin,Urine Negative (Negative); Blood,Urine Negative (Negative); Clarity,Urine Clear (Clear); Color,Urine Light-Yellow (Yellow); Glucose,Urine (UA) 30 mg/dL (Normal); Hyaline Casts,Urine Few per lpf (None Seen); Ketones,Urine Negative (Negative); Leukocyte Esterase,Urine Negative (Negative); Mucus,Urine Few per lpf (None-Few); Nitrite,Urine Negative (Negative); Protein,Urine Negative (Neg-Trace); RBC,Urine 0-3 per hpf (0-3); Specific Gravity,Urine 1.014 (1.010-1.025); Urobilinogen,Urine Normal (Normal); WBC,Urine 0-3 per hpf (0-3)
[2020-01-03] MEDS ORDERED: Naloxone 0.4 MG/ML INJ IVP PRN (16:39)
[2020-01-03] MEDS ORDERED: Dextrose Gel 15 GM/37.5 ML TUBE PO PRN ×2 (16:47)
[2020-01-03] MEDS ORDERED: D5% in Water 1,000 ML IVC PRN (16:47)
[2020-01-03] MEDS ORDERED: *HR* Dextrose 50 % in Water (Vial) 50 ML VIAL IVP PRN (16:47)
[2020-01-03] MEDS ORDERED: Potassium Chloride Elixir 20 MEQ/15 ML UDC PO ONE (16:51)
[2020-01-03] MEDS ORDERED: 0.9 % Sodium Chloride 1,000 ML IVC SCH (17:00)
[2020-01-03] MEDS ORDERED: D10% in Water 500 ML IVC ONE (17:15)
[2020-01-03] MEDS ORDERED: D10% in Water 500 ML ONE (17:26)
[2020-01-04 01:45] LABS: Hematocrit 44.1 % (37.5-50.1); Mean Corpuscular Hemoglobin 28.4 pg (28.0-33.3); Mean Corpuscular Volume 83.5 fL (83.0-100.0); Mean Platelet Volume 9.8 fL (9.4-12.4); Platelet Count 405 K/mcL (140-400); Red Blood Count 5.28 M/mcL (4.19-5.50); Red Cell Distribution Width 13.3 % (11.5-14.5); White Blood Count 8.9 K/mcL (4.3-11.1)
[2020-01-04 02:03] LABS: BUN/Creatinine Ratio 10 (6-26); Blood Urea Nitrogen 11 mg/dL (6-20); Calcium 8.5 mg/dL (8.6-10.3); Carbon Dioxide 30 mEq/L (23-29); Chloride 94 mEq/L (98-107); Glucose 171 mg/dL (70-105); Osmolality,Calculated 279 (280-300); Potassium 3.2 mEq/L (3.5-5.1); Sodium 133 mEq/L (136-145); eGFR For African Americans > 60 (> 60); eGFR For Non-African Americans > 60 (> 60)
[2020-01-04] MEDS: Sucralfate 1 GM TABLET PO SCH ×2 (16:50→20:13)
[2020-01-04] MEDS: OLANZapine 10 MG TAB.RAPDIS PO SCH (20:13)
[2020-01-04] MEDS: Lithium Carbonate ER 450 MG TABLET.ER PO SCH (20:13)
[2020-01-04] MEDS: FluPHENAZine 10 MG TABLET PO SCH (22:31)
[2020-01-05] MEDS: Sucralfate 1 GM TABLET PO SCH ×4 (01:48→20:57)
[2020-01-05 05:19] LABS: Hemoglobin 14.7 g/dL (12.9-16.9); Mean Corpuscular HGB Conc 33.4 g/dL (31.6-35.5); Mean Corpuscular Hemoglobin 28.4 pg (28.0-33.3); Mean Corpuscular Volume 84.9 fL (83.0-100.0); Mean Platelet Volume 9.6 fL (9.4-12.4); Platelet Count 349 K/mcL (140-400); Red Blood Count 5.18 M/mcL (4.19-5.50); Red Cell Distribution Width 13.2 % (11.5-14.5); White Blood Count 9.2 K/mcL (4.3-11.1)
[2020-01-05 05:38] LABS: BUN/Creatinine Ratio 11 (6-26); Blood Urea Nitrogen 13 mg/dL (6-20); Calcium 8.6 mg/dL (8.6-10.3); Carbon Dioxide 29 mEq/L (23-29); Chloride 97 mEq/L (98-107); Glucose 233 mg/dL (70-105); Osmolality,Calculated 286 (280-300); Potassium 3.7 mEq/L (3.5-5.1); Sodium 134 mEq/L (136-145); eGFR For African Americans > 60 (> 60); eGFR For Non-African Americans > 60 (> 60)
[2020-01-05] MEDS: Insulin LISPRO 300 UNITS/3 ML VIAL SQ SCH ×4 (09:34→21:00)
[2020-01-05] MEDS: amLODIPine 5 MG TABLET PO SCH (09:35)
[2020-01-05] MEDS: OLANZapine 10 MG TAB.RAPDIS PO SCH (20:53)
[2020-01-05] MEDS: Lithium Carbonate ER 450 MG TABLET.ER PO SCH (20:53)
[2020-01-05] MEDS: FluPHENAZine 10 MG TABLET PO SCH (20:53)
[2020-01-06] MEDS: Sucralfate 1 GM TABLET PO SCH ×6 (01:22→23:38)
[2020-01-06] MEDS ORDERED: Ondansetron Oral Soln 2 MG/2.5 ML ORAL.SYG PO ONE (08:53)
[2020-01-06 10:14] LABS: Hematocrit 45.1 % (37.5-50.1); Mean Corpuscular HGB Conc 33.3 g/dL (31.6-35.5); Mean Corpuscular Hemoglobin 28.6 pg (28.0-33.3); Mean Corpuscular Volume 85.9 fL (83.0-100.0); Mean Platelet Volume 9.5 fL (9.4-12.4); Platelet Count 340 K/mcL (140-400); Red Blood Count 5.25 M/mcL (4.19-5.50); Red Cell Distribution Width 13.2 % (11.5-14.5); White Blood Count 10.9 K/mcL (4.3-11.1)
[2020-01-06 10:44] LABS: BUN/Creatinine Ratio 10 (6-26); Blood Urea Nitrogen 12 mg/dL (6-20); Calcium 8.4 mg/dL (8.6-10.3); Carbon Dioxide 25 mEq/L (23-29); Chloride 98 mEq/L (98-107); Glucose 376 mg/dL (70-105); Osmolality,Calculated 287 (280-300); Potassium 3.8 mEq/L (3.5-5.1); Sodium 131 mEq/L (136-145); Troponin I < 0.03 ng/mL (< 0.04); eGFR For African Americans > 60 (> 60); eGFR For Non-African Americans > 60 (> 60)
[2020-01-06] MEDS ORDERED: Pantoprazole 40 MG VIAL IVP ONE (12:34)
[2020-01-06] MEDS: amLODIPine 5 MG TABLET PO SCH (12:43)
[2020-01-06] MEDS: Pantoprazole 40 MG VIAL IVP SCH ×2 (12:44→18:21)
[2020-01-06] MEDS: Insulin LISPRO 300 UNITS/3 ML VIAL SQ SCH ×5 (12:44→20:48)
[2020-01-06] MEDS ORDERED: Ondansetron 4 MG/2 ML VIAL IVP PRN (15:32)
[2020-01-06] MEDS ORDERED: Pantoprazole 40 MG VIAL IVP SCH (18:00)
[2020-01-06] MEDS: Lithium Carbonate ER 450 MG TABLET.ER PO SCH (20:47)
[2020-01-06] MEDS: FluPHENAZine 10 MG TABLET PO SCH (20:47)
[2020-01-06] MEDS: OLANZapine 10 MG TAB.RAPDIS PO SCH (20:47)
[2020-01-06] MEDS: Insulin DETEMIR 100 UNIT/ML X5UNITS SQ SCH (20:48)
[2020-01-07 02:07] LABS: Hemoglobin 14.7 g/dL (12.9-16.9); Mean Corpuscular HGB Conc 32.7 g/dL (31.6-35.5); Mean Corpuscular Hemoglobin 28.1 pg (28.0-33.3); Mean Platelet Volume 9.6 fL (9.4-12.4); Platelet Count 353 K/mcL (140-400); Red Blood Count 5.23 M/mcL (4.19-5.50); Red Cell Distribution Width 13.2 % (11.5-14.5); White Blood Count 10.7 K/mcL (4.3-11.1)
[2020-01-07 02:10] LABS: Alanine Aminotransferase 20 Units/L (7-52); Albumin 3.2 g/dL (3.5-5.7); Albumin/Globulin Ratio 1.3 (1.1-2.2); Alkaline Phosphatase 132 Units/L (34-104); Aspartate Amino Transferase 8 Units/L (13-39); BUN/Creatinine Ratio 11 (6-26); Bilirubin,Total 0.4 mg/dL (0.3-1.0); Blood Urea Nitrogen 11 mg/dL (6-20); Calcium 8.3 mg/dL (8.6-10.3); Carbon Dioxide 25 mEq/L (23-29); Chloride 100 mEq/L (98-107); Globulin 2.5 g/dL (2.4-3.5); Glucose 187 mg/dL (70-105); Magnesium 2.1 mg/dL (1.6-2.6); Osmolality,Calculated 278 (280-300); Phosphorous 2.9 mg/dL (2.7-4.5); Potassium 3.4 mEq/L (3.5-5.1); Sodium 132 mEq/L (136-145); Total Protein 5.7 g/dL (6.4-8.9); eGFR For African Americans > 60 (> 60); eGFR For Non-African Americans > 60 (> 60)
[2020-01-07] MEDS: Pantoprazole 40 MG VIAL IVP SCH ×2 (05:42→17:55)
[2020-01-07 08:48] LABS: Estimated Average Glucose 169 mg/dl
[2020-01-07] MEDS: Insulin LISPRO 300 UNITS/3 ML VIAL SQ SCH ×7 (11:13→20:44)
[2020-01-07] MEDS: amLODIPine 5 MG TABLET PO SCH (11:48)
[2020-01-07] MEDS: Sucralfate 1 GM TABLET PO SCH ×3 (11:48→19:50)
[2020-01-07] MEDS: Multivit/Ca/Min/Fe/FA 1 TAB TABLET PO SCH (11:48)
[2020-01-07 13:15] LABS: Adenovirus Not Detected (Not Detect); Bordetella Pertussis Not Detected (Not Detect); Chlamydophila pneumoniae Not Detected (Not Detect); Coronavirus 229E Not Detected (Not Detect); Coronavirus HKU1 Not Detected (Not Detect); Coronavirus NL63 Not Detected (Not Detect); Coronavirus OC43 Not Detected (Not Detect); Human Metapneumovirus Not Detected (Not Detect); Human Rhinovirus/Enterovirus Not Detected (Not Detect); Influenza A Subtype 2009 H1 Not Detected (Not Detect); Influenza B Not Detected (Not Detect); Mycoplasma pneumoniae Not Detected (Not Detect); Parainfluenza Virus 1 Not Detected (Not Detect); Parainfluenza Virus 2 Not Detected (Not Detect); Parainfluenza Virus 3 Not Detected (Not Detect); Parainfluenza Virus 4 Not Detected (Not Detect); Respiratory Syncytial Virus Not Detected (Not Detect); SARS-CoV-2 Not Detected (Not Detect)
[2020-01-07] MEDS: 0.9 % Sodium Chloride 500 ML IVC SCH (16:01)
[2020-01-07] MEDS: FluPHENAZine 10 MG TABLET PO SCH (20:39)
[2020-01-07] MEDS: Insulin DETEMIR 100 UNIT/ML X5UNITS SQ SCH (20:43)
[2020-01-07] MEDS: GI Cocktail 40 ML EACH PO SCH (20:52)
[2020-01-07] MEDS: OLANZapine 10 MG TAB.RAPDIS PO SCH (20:58)
[2020-01-07] MEDS: Lithium Carbonate ER 450 MG TABLET.ER PO SCH (20:58)
[2020-01-08] MEDS: Sucralfate 1 GM TABLET PO SCH ×4 (00:24→20:28)
[2020-01-08 01:35] LABS: Hematocrit 44.2 % (37.5-50.1); Hemoglobin 14.5 g/dL (12.9-16.9); Mean Corpuscular HGB Conc 32.8 g/dL (31.6-35.5); Mean Corpuscular Hemoglobin 28.6 pg (28.0-33.3); Mean Corpuscular Volume 87.2 fL (83.0-100.0); Mean Platelet Volume 9.8 fL (9.4-12.4); Platelet Count 396 K/mcL (140-400); Red Blood Count 5.07 M/mcL (4.19-5.50); Red Cell Distribution Width 13.5 % (11.5-14.5); White Blood Count 12.4 K/mcL (4.3-11.1)
[2020-01-08 01:46] LABS: BUN/Creatinine Ratio 13 (6-26); Blood Urea Nitrogen 14 mg/dL (6-20); Calcium 8.5 mg/dL (8.6-10.3); Carbon Dioxide 24 mEq/L (23-29); Chloride 101 mEq/L (98-107); Glucose 228 mg/dL (70-105); Osmolality,Calculated 284 (280-300); Phosphorous 3.2 mg/dL (2.7-4.5); Sodium 133 mEq/L (136-145); eGFR For African Americans > 60 (> 60); eGFR For Non-African Americans > 60 (> 60)
[2020-01-08] MEDS: Pantoprazole 40 MG VIAL IVP SCH ×2 (05:20→18:04)
[2020-01-08] MEDS: 0.9 % Sodium Chloride 500 ML IVC SCH (08:25)
[2020-01-08] MEDS: Multivit/Ca/Min/Fe/FA 1 TAB TABLET PO SCH (08:27)
[2020-01-08] MEDS: amLODIPine 5 MG TABLET PO SCH (08:27)
[2020-01-08] MEDS: Insulin LISPRO 300 UNITS/3 ML VIAL SQ SCH ×7 (08:28→20:30)
[2020-01-08] MEDS: GI Cocktail 40 ML EACH PO SCH ×3 (12:58→21:20)
[2020-01-08] MEDS: FluPHENAZine 10 MG TABLET PO SCH (20:28)
[2020-01-08] MEDS: OLANZapine 10 MG TAB.RAPDIS PO SCH (20:29)
[2020-01-08] MEDS: Lithium Carbonate ER 450 MG TABLET.ER PO SCH (20:29)
[2020-01-08] MEDS: Insulin DETEMIR 100 UNIT/ML X5UNITS SQ SCH (20:33)
[2020-01-09] MEDS: Sucralfate 1 GM TABLET PO SCH ×5 (01:45→23:27)
[2020-01-09] MEDS ORDERED: Acetaminophen 325 MG TABLET PO PRN (03:26)
[2020-01-09] MEDS: Pantoprazole 40 MG VIAL IVP SCH ×2 (05:26→17:05)
[2020-01-09] MEDS: Multivit/Ca/Min/Fe/FA 1 TAB TABLET PO SCH (08:00)
[2020-01-09] MEDS: GI Cocktail 40 ML EACH PO SCH ×3 (08:01→19:57)
[2020-01-09] MEDS: amLODIPine 5 MG TABLET PO SCH (08:01)
[2020-01-09] MEDS: Insulin LISPRO 300 UNITS/3 ML VIAL SQ SCH ×7 (08:01→20:09)
[2020-01-09 09:36] LABS: Hematocrit 43.2 % (37.5-50.1); Hemoglobin 14.4 g/dL (12.9-16.9); Mean Corpuscular HGB Conc 33.3 g/dL (31.6-35.5); Mean Corpuscular Hemoglobin 28.3 pg (28.0-33.3); Mean Platelet Volume 9.4 fL (9.4-12.4); Platelet Count 406 K/mcL (140-400); Red Blood Count 5.08 M/mcL (4.19-5.50); Red Cell Distribution Width 13.3 % (11.5-14.5); White Blood Count 11.1 K/mcL (4.3-11.1)
[2020-01-09 09:58] LABS: BUN/Creatinine Ratio 10 (6-26); Blood Urea Nitrogen 11 mg/dL (6-20); Calcium 8.7 mg/dL (8.6-10.3); Carbon Dioxide 23 mEq/L (23-29); Chloride 99 mEq/L (98-107); Glucose 260 mg/dL (70-105); Osmolality,Calculated 276 (280-300); Phosphorous 3.1 mg/dL (2.7-4.5); Potassium 3.9 mEq/L (3.5-5.1); Sodium 129 mEq/L (136-145); eGFR For African Americans > 60 (> 60); eGFR For Non-African Americans > 60 (> 60)
[2020-01-09] MEDS: OLANZapine 10 MG TAB.RAPDIS PO SCH (19:56)
[2020-01-09] MEDS: FluPHENAZine 10 MG TABLET PO SCH (19:56)
[2020-01-09] MEDS: Lithium Carbonate ER 450 MG TABLET.ER PO SCH (19:57)
[2020-01-09] MEDS ORDERED: Insulin DETEMIR 100 UNIT/ML X5UNITS SQ SCH (21:00)
[2020-01-10 05:01] LABS: Hematocrit 38.6 % (37.5-50.1); Mean Corpuscular HGB Conc 32.9 g/dL (31.6-35.5); Mean Platelet Volume 9.3 fL (9.4-12.4); Platelet Count 375 K/mcL (140-400); Red Blood Count 4.54 M/mcL (4.19-5.50); Red Cell Distribution Width 13.3 % (11.5-14.5); White Blood Count 11.6 K/mcL (4.3-11.1)
[2020-01-10 05:02] LABS: Hemoglobin 12.7 g/dL (12.9-16.9)
[2020-01-10] MEDS: Pantoprazole 40 MG VIAL IVP SCH ×2 (05:06→16:58)
[2020-01-10 05:20] LABS: BUN/Creatinine Ratio 11 (6-26); Blood Urea Nitrogen 12 mg/dL (6-20); Calcium 8.2 mg/dL (8.6-10.3); Carbon Dioxide 27 mEq/L (23-29); Chloride 101 mEq/L (98-107); Glucose 257 mg/dL (70-105); Magnesium 2.1 mg/dL (1.6-2.6); Osmolality,Calculated 281 (280-300); Phosphorous 2.8 mg/dL (2.7-4.5); Potassium 4.3 mEq/L (3.5-5.1); Sodium 131 mEq/L (136-145); eGFR For African Americans > 60 (> 60); eGFR For Non-African Americans > 60 (> 60)
[2020-01-10] MEDS: GI Cocktail 40 ML EACH PO SCH ×3 (08:25→19:51)
[2020-01-10] MEDS: Insulin LISPRO 300 UNITS/3 ML VIAL SQ SCH ×7 (08:26→21:09)
[2020-01-10] MEDS: amLODIPine 5 MG TABLET PO SCH (08:26)
[2020-01-10] MEDS: Multivit/Ca/Min/Fe/FA 1 TAB TABLET PO SCH (08:26)
[2020-01-10] MEDS: Sucralfate 1 GM TABLET PO SCH ×4 (11:47→21:16)
[2020-01-10] MEDS: OLANZapine 10 MG TAB.RAPDIS PO SCH (19:51)
[2020-01-10] MEDS: FluPHENAZine 10 MG TABLET PO SCH (19:51)
[2020-01-10] MEDS: Lithium Carbonate ER 450 MG TABLET.ER PO SCH (19:51)
[2020-01-10] MEDS: Insulin DETEMIR 100 UNIT/ML X5UNITS SQ SCH (19:57)
[2020-01-11] MEDS: Pantoprazole 40 MG VIAL IVP SCH ×2 (05:32→17:29)
[2020-01-11] MEDS: Multivit/Ca/Min/Fe/FA 1 TAB TABLET PO SCH (08:33)
[2020-01-11] MEDS: amLODIPine 5 MG TABLET PO SCH (08:33)
[2020-01-11] MEDS: GI Cocktail 40 ML EACH PO SCH ×3 (08:33→20:46)
[2020-01-11] MEDS: Insulin DETEMIR 100 UNIT/ML X5UNITS SQ SCH ×2 (08:36→20:46)
[2020-01-11] MEDS: Insulin LISPRO 300 UNITS/3 ML VIAL SQ SCH ×7 (08:42→22:10)
[2020-01-11] MEDS: Sucralfate 1 GM TABLET PO SCH ×2 (12:01→16:28)
[2020-01-11 12:27] LABS: Hematocrit 40.3 % (37.5-50.1); Hemoglobin 13.1 g/dL (12.9-16.9); Mean Corpuscular HGB Conc 32.5 g/dL (31.6-35.5); Mean Corpuscular Hemoglobin 27.9 pg (28.0-33.3); Mean Corpuscular Volume 85.7 fL (83.0-100.0); Platelet Count 397 K/mcL (140-400); Red Cell Distribution Width 13.4 % (11.5-14.5); White Blood Count 12.2 K/mcL (4.3-11.1)
[2020-01-11 12:44] LABS: BUN/Creatinine Ratio 10 (6-26); Blood Urea Nitrogen 11 mg/dL (6-20); Calcium 8.4 mg/dL (8.6-10.3); Carbon Dioxide 25 mEq/L (23-29); Chloride 102 mEq/L (98-107); Glucose 322 mg/dL (70-105); Magnesium 2.2 mg/dL (1.6-2.6); Osmolality,Calculated 284 (280-300); Phosphorous 2.5 mg/dL (2.7-4.5); Potassium 4.3 mEq/L (3.5-5.1); Sodium 131 mEq/L (136-145); eGFR For African Americans > 60 (> 60); eGFR For Non-African Americans > 60 (> 60)
[2020-01-11] MEDS: Lithium Carbonate ER 450 MG TABLET.ER PO SCH (20:44)
[2020-01-11] MEDS: FluPHENAZine 10 MG TABLET PO SCH (20:45)
[2020-01-11] MEDS: Sulfamethoxazole/Trimeth DS 1 EACH TABLET PO SCH (20:45)
[2020-01-11] MEDS: OLANZapine 10 MG TAB.RAPDIS PO SCH (20:45)
[2020-01-12] MEDS: Sucralfate 1 GM TABLET PO SCH ×3 (01:14→12:27)
[2020-01-12] MEDS: Pantoprazole 40 MG VIAL IVP SCH (05:37)
[2020-01-12] MEDS: Multivit/Ca/Min/Fe/FA 1 TAB TABLET PO SCH (09:52)
[2020-01-12] MEDS: Insulin LISPRO 300 UNITS/3 ML VIAL SQ SCH ×4 (09:53→12:27)
[2020-01-12] MEDS: GI Cocktail 40 ML EACH PO SCH ×2 (09:54→14:59)
[2020-01-12] MEDS: Sulfamethoxazole/Trimeth DS 1 EACH TABLET PO SCH (09:54)
[2020-01-12] MEDS: amLODIPine 5 MG TABLET PO SCH (09:54)
[2020-01-12] MEDS: Insulin DETEMIR 100 UNIT/ML X5UNITS SQ SCH (09:57)
[2020-01-12 15:42] VITALS: BP 127/76
== END 2020-01-12 16:35 | disposition home or self-care (01) | DRG 381 ==
LOC: 3ANU 10:51 → EMEROOARM 10:51 → SUATTDRO 15:30 → 3ANU 17:43 → SUATTDRO 01-04 17:00
PROVIDERS: ADMIT Internal Medicine; ATTEND Internal Medicine
PROC: ENDOEBX (2020-01-07 18:25)

== ENCOUNTER 2020-03-25 16:49 | Inpatient (IN) ==
[2020-03-25 17:18] LABS: VBG HCO3 24 mEq/L (21-27); VBG PCO2 34 mmHg (41-51); VBG PH 7.46 pH Units (7.32-7.42); VBG PO2 68 mmHg (25-50)
[2020-03-25 17:22] LABS: Basophils % 0.2 %; Hematocrit 45.6 % (37.5-50.1); Hemoglobin 15.2 g/dL (12.9-16.9); Immature Granulocytes % 0.5 % (0-4); Lymphocytes # 1.3 K/mcL (0.6-4.6); Lymphocytes % 6.5 %; Mean Corpuscular HGB Conc 33.3 g/dL (31.6-35.5); Mean Corpuscular Hemoglobin 27.7 pg (28.0-33.3); Mean Corpuscular Volume 83.1 fL (83.0-100.0); Mean Platelet Volume 10.1 fL (9.4-12.4); Monocytes # 0.8 K/mcL (0.0-1.3); Monocytes % 4.1 %; Platelet Count 360 K/mcL (140-400); Red Blood Count 5.49 M/mcL (4.19-5.50); Red Cell Distribution Width 14.2 % (11.5-14.5); Segmented Neutrophils % 88.7 %; White Blood Count 20.4 K/mcL (4.3-11.1)
[2020-03-25] MEDS ORDERED: Ondansetron 4 MG/2 ML VIAL IVP ONE (17:26)
[2020-03-25] MEDS ORDERED: Isovue-370 500 ML BOTTLE IVP ONE (17:26)
[2020-03-25] MEDS ORDERED: Famotidine 20 MG/2 ML VIAL IVP ONE (17:26)
[2020-03-25] MEDS ORDERED: 0.9 % Sodium Chloride 1,000 ML IVC ONE ×2 (17:27→19:40)
[2020-03-25 17:45] LABS: Acetaminophen < 10 mcg/mL (10-20); Alanine Aminotransferase 13 Units/L (7-52); Albumin 4.4 g/dL (3.5-5.7); Albumin/Globulin Ratio 1.6 (1.1-2.2); Alkaline Phosphatase 174 Units/L (34-104); Aspartate Amino Transferase 9 Units/L (13-39); BUN/Creatinine Ratio 17 (6-26); Bilirubin,Total 0.6 mg/dL (0.3-1.0); Blood Urea Nitrogen 22 mg/dL (6-20); Calcium 9.7 mg/dL (8.6-10.3); Carbon Dioxide 23 mEq/L (23-29); Chloride 93 mEq/L (98-107); Ethanol < 10 mg/dL (Less than 10); Globulin 2.8 g/dL (2.4-3.5); Glucose 510 mg/dL (70-105); Magnesium 2.1 mg/dL (1.6-2.6); Osmolality,Calculated 298 (280-300); Phosphorous 4.1 mg/dL (2.7-4.5); Potassium 3.6 mEq/L (3.5-5.1); Salicylate < 2.5 mg/dL (15.0-30.0); Sodium 131 mEq/L (136-145); Total Protein 7.2 g/dL (6.4-8.9); eGFR For African Americans > 60 (> 60); eGFR For Non-African Americans 56 (> 60)
[2020-03-25 18:29] LABS: Bilirubin,Urine Negative (Negative); Blood,Urine Negative (Negative); Clarity,Urine Clear (Clear); Color,Urine Colorless (Yellow); Glucose,Urine (UA) >=1000 mg/dL (Normal); Ketones,Urine Trace mg/dL (Negative); Leukocyte Esterase,Urine Negative (Negative); Nitrite,Urine Negative (Negative); Protein,Urine Negative (Neg-Trace); Specific Gravity,Urine > 1.030 (1.010-1.025); Urobilinogen,Urine Normal (Normal)
[2020-03-25 18:40] LABS: Amphetamine Screen,Urine Negative ng/mL (Cutoff=1000); Barbiturate Screen,Urine Negative ng/mL (Cutoff=200); Benzodiazepines Screen,Urine Negative ng/mL (Cutoff=200); Cannabinoid Screen,Urine Negative ng/mL (Cutoff = 50); Cocaine Screen,Urine Negative ng/mL (Cutoff= 300); Opiate Screen,Urine Negative ng/mL (Cutoff=300); Phencyclidine Screen,Urine Negative ng/mL (Cutoff=25)
[2020-03-25] MEDS ORDERED: Insulin Regular, Human 100 UNIT/ML SUBQ ONE (22:06)
[2020-03-25] MEDS ORDERED: Ondansetron 4 MG/2 ML VIAL IVP PRN (22:15)
[2020-03-25] MEDS ORDERED: D5% in Water 1,000 ML IVC PRN (23:02)
[2020-03-25] MEDS ORDERED: *HR* Dextrose 50 % in Water (Vial) 50 ML VIAL IVP PRN (23:02)
[2020-03-25] MEDS ORDERED: Dextrose Gel 15 GM/37.5 ML TUBE PO PRN ×2 (23:02)
[2020-03-25] MEDS ORDERED: Insulin Regular, Human 100 UNIT/ML ONE (23:52)
[2020-03-25] MEDS: Pantoprazole 40 MG VIAL IVP SCH (23:57)
[2020-03-25] MEDS: GI Cocktail 40 ML EACH PO SCH (23:57)
[2020-03-25] MEDS: FluPHENAZine 10 MG TABLET PO SCH (23:57)
[2020-03-25] MEDS: Lithium Carbonate ER 450 MG TABLET.ER PO SCH (23:57)
[2020-03-25] MEDS: OLANZapine 10 MG TAB.RAPDIS PO SCH (23:57)
[2020-03-26] MEDS: Sucralfate 1 GM TABLET PO SCH ×4 (00:58→20:57)
[2020-03-26] MEDS: Insulin DETEMIR 100 UNIT/ML X5UNITS SUBQ SCH ×3 (01:06→20:51)
[2020-03-26] MEDS: GI Cocktail 40 ML EACH PO SCH ×3 (10:17→20:51)
[2020-03-26] MEDS: Pantoprazole 40 MG VIAL IVP SCH ×2 (10:17→20:57)
[2020-03-26] MEDS: Insulin LISPRO 300 UNITS/3 ML VIAL SUBQ SCH ×3 (10:17→18:30)
[2020-03-26] MEDS: amLODIPine 5 MG TABLET PO SCH (10:17)
[2020-03-26 12:49] LABS: Hematocrit 40.5 % (37.5-50.1); Mean Corpuscular HGB Conc 33.3 g/dL (31.6-35.5); Mean Corpuscular Hemoglobin 28.1 pg (28.0-33.3); Mean Corpuscular Volume 84.2 fL (83.0-100.0); Mean Platelet Volume 10.2 fL (9.4-12.4); Platelet Count 292 K/mcL (140-400); Red Blood Count 4.81 M/mcL (4.19-5.50); White Blood Count 16.9 K/mcL (4.3-11.1)
[2020-03-26 12:50] LABS: Hemoglobin 13.5 g/dL (12.9-16.9)
[2020-03-26 13:09] LABS: BUN/Creatinine Ratio 19 (6-26); Blood Urea Nitrogen 20 mg/dL (6-20); Calcium 8.6 mg/dL (8.6-10.3); Carbon Dioxide 26 mEq/L (23-29); Chloride 104 mEq/L (98-107); Glucose 289 mg/dL (70-105); Osmolality,Calculated 297 (280-300); Potassium 3.6 mEq/L (3.5-5.1); Sodium 137 mEq/L (136-145); eGFR For African Americans > 60 (> 60); eGFR For Non-African Americans > 60 (> 60)
[2020-03-26] MEDS: FluPHENAZine 10 MG TABLET PO SCH (20:57)
[2020-03-26] MEDS: Lithium Carbonate ER 450 MG TABLET.ER PO SCH (20:57)
[2020-03-26] MEDS: OLANZapine 10 MG TAB.RAPDIS PO SCH (20:58)
[2020-03-26] MEDS ORDERED: Lithium Carbonate ER 450 MG TABLET.ER PO SCH (21:00)
[2020-03-27] MEDS: Sucralfate 1 GM TABLET PO SCH ×5 (00:10→23:10)
[2020-03-27 05:39] LABS: Basophils # 0.1 K/mcL (0.0-0.2); Basophils % 0.8 %; Eosinophils # 0.1 K/mcL (0.0-0.6); Eosinophils % 0.8 %; Hematocrit 40.2 % (37.5-50.1); Hemoglobin 13.7 g/dL (12.9-16.9); Lymphocytes # 2.1 K/mcL (0.6-4.6); Lymphocytes % 20.2 %; Mean Corpuscular HGB Conc 34.1 g/dL (31.6-35.5); Mean Corpuscular Hemoglobin 28.6 pg (28.0-33.3); Mean Corpuscular Volume 83.9 fL (83.0-100.0); Mean Platelet Volume 10.1 fL (9.4-12.4); Monocytes % 9.5 %; Neutrophils # 7.1 K/mcL (1.6-8.9); Platelet Count 288 K/mcL (140-400); Red Blood Count 4.79 M/mcL (4.19-5.50); Red Cell Distribution Width 13.6 % (11.5-14.5); Segmented Neutrophils % 67.7 %; White Blood Count 10.5 K/mcL (4.3-11.1)
[2020-03-27 05:58] LABS: BUN/Creatinine Ratio 18 (6-26); Blood Urea Nitrogen 19 mg/dL (6-20); Calcium 8.5 mg/dL (8.6-10.3); Carbon Dioxide 27 mEq/L (23-29); Chloride 103 mEq/L (98-107); Glucose 305 mg/dL (70-105); Osmolality,Calculated 296 (280-300); Potassium 3.6 mEq/L (3.5-5.1); Sodium 136 mEq/L (136-145); eGFR For African Americans > 60 (> 60); eGFR For Non-African Americans > 60 (> 60)
[2020-03-27] MEDS: Insulin LISPRO 300 UNITS/3 ML VIAL SUBQ SCH ×3 (07:30→17:27)
[2020-03-27] MEDS: amLODIPine 5 MG TABLET PO SCH (09:00)
[2020-03-27] MEDS: GI Cocktail 40 ML EACH PO SCH ×3 (09:00→19:45)
[2020-03-27] MEDS: Pantoprazole 40 MG VIAL IVP SCH ×2 (09:00→19:46)
[2020-03-27] MEDS: Insulin DETEMIR 100 UNIT/ML X5UNITS SUBQ SCH ×2 (09:00→19:50)
[2020-03-27] MEDS ORDERED: GI Cocktail 40 ML EACH PO PRN (14:58)
[2020-03-27] MEDS: Lithium Carbonate ER 450 MG TABLET.ER PO SCH (19:45)
[2020-03-27] MEDS: FluPHENAZine 10 MG TABLET PO SCH (19:46)
[2020-03-27] MEDS: OLANZapine 10 MG TAB.RAPDIS PO SCH (19:46)
[2020-03-28 06:22] LABS: Basophils # 0.1 K/mcL (0.0-0.2); Basophils % 0.8 %; Eosinophils # 0.4 K/mcL (0.0-0.6); Eosinophils % 3.7 %; Hemoglobin 14.2 g/dL (12.9-16.9); Immature Granulocytes % 0.8 % (0-4); Lymphocytes # 3.5 K/mcL (0.6-4.6); Lymphocytes % 34.5 %; Mean Corpuscular HGB Conc 34.6 g/dL (31.6-35.5); Mean Corpuscular Hemoglobin 28.5 pg (28.0-33.3); Mean Corpuscular Volume 82.3 fL (83.0-100.0); Monocytes % 10.1 %; Neutrophils # 5.1 K/mcL (1.6-8.9); Platelet Count 310 K/mcL (140-400); Red Blood Count 4.98 M/mcL (4.19-5.50); Red Cell Distribution Width 13.4 % (11.5-14.5); Segmented Neutrophils % 50.1 %; White Blood Count 10.1 K/mcL (4.3-11.1)
[2020-03-28 06:43] LABS: BUN/Creatinine Ratio 17 (6-26); Blood Urea Nitrogen 17 mg/dL (6-20); Calcium 8.6 mg/dL (8.6-10.3); Carbon Dioxide 24 mEq/L (23-29); Chloride 100 mEq/L (98-107); Glucose 225 mg/dL (70-105); Osmolality,Calculated 285 (280-300); Potassium 3.5 mEq/L (3.5-5.1); Sodium 133 mEq/L (136-145); eGFR For African Americans > 60 (> 60); eGFR For Non-African Americans > 60 (> 60)
[2020-03-28] MEDS: Insulin LISPRO 300 UNITS/3 ML VIAL SUBQ SCH ×3 (08:17→16:43)
[2020-03-28] MEDS: amLODIPine 5 MG TABLET PO SCH (08:17)
[2020-03-28] MEDS: GI Cocktail 40 ML EACH PO SCH ×3 (08:28→19:43)
[2020-03-28] MEDS: Insulin DETEMIR 100 UNIT/ML X5UNITS SUBQ SCH ×2 (08:28→19:43)
[2020-03-28] MEDS: Pantoprazole 40 MG VIAL IVP SCH ×2 (08:30→19:43)
[2020-03-28] MEDS: Multivit/Ca/Min/Fe/FA 1 TAB TABLET PO SCH (08:32)
[2020-03-28] MEDS: Sucralfate 1 GM TABLET PO SCH ×4 (12:46→21:32)
[2020-03-28] MEDS: Lithium Carbonate ER 450 MG TABLET.ER PO SCH (19:42)
[2020-03-28] MEDS: OLANZapine 10 MG TAB.RAPDIS PO SCH (19:43)
[2020-03-28] MEDS: FluPHENAZine 10 MG TABLET PO SCH (19:43)
[2020-03-29 06:29] LABS: Basophils # 0.1 K/mcL (0.0-0.2); Basophils % 0.7 %; Eosinophils # 0.4 K/mcL (0.0-0.6); Eosinophils % 3.8 %; Hematocrit 43.8 % (37.5-50.1); Hemoglobin 15.3 g/dL (12.9-16.9); Immature Granulocytes % 0.7 % (0-4); Lymphocytes # 3.9 K/mcL (0.6-4.6); Lymphocytes % 34.9 %; Mean Corpuscular HGB Conc 34.9 g/dL (31.6-35.5); Mean Platelet Volume 10.6 fL (9.4-12.4); Monocytes # 1.1 K/mcL (0.0-1.3); Monocytes % 10.1 %; Neutrophils # 5.6 K/mcL (1.6-8.9); Platelet Count 328 K/mcL (140-400); Red Blood Count 5.28 M/mcL (4.19-5.50); Red Cell Distribution Width 13.4 % (11.5-14.5); Segmented Neutrophils % 49.8 %; White Blood Count 11.2 K/mcL (4.3-11.1)
[2020-03-29 07:50] LABS: BUN/Creatinine Ratio 14 (6-26); Blood Urea Nitrogen 16 mg/dL (6-20); Calcium 8.5 mg/dL (8.6-10.3); Carbon Dioxide 16 mEq/L (23-29); Chloride 103 mEq/L (98-107); Glucose 244 mg/dL (70-105); Osmolality,Calculated 287 (280-300); Potassium 3.9 mEq/L (3.5-5.1); Sodium 134 mEq/L (136-145); eGFR For African Americans > 60 (> 60); eGFR For Non-African Americans > 60 (> 60)
[2020-03-29] MEDS: Pantoprazole 40 MG VIAL IVP SCH ×2 (08:56→20:49)
[2020-03-29] MEDS: amLODIPine 5 MG TABLET PO SCH (08:56)
[2020-03-29] MEDS: GI Cocktail 40 ML EACH PO SCH ×3 (08:57→20:50)
[2020-03-29] MEDS: Insulin LISPRO 300 UNITS/3 ML VIAL SUBQ SCH ×3 (08:57→17:15)
[2020-03-29] MEDS: Multivit/Ca/Min/Fe/FA 1 TAB TABLET PO SCH (09:05)
[2020-03-29] MEDS: Insulin DETEMIR 100 UNIT/ML X5UNITS SUBQ SCH ×2 (09:33→20:49)
[2020-03-29] MEDS: Sucralfate 1 GM TABLET PO SCH ×3 (12:11→21:10)
[2020-03-29] MEDS: OLANZapine 10 MG TAB.RAPDIS PO SCH (21:11)
[2020-03-29] MEDS: FluPHENAZine 10 MG TABLET PO SCH (21:11)
[2020-03-29] MEDS: Lithium Carbonate ER 450 MG TABLET.ER PO SCH (21:11)
[2020-03-30] MEDS: Sucralfate 1 GM TABLET PO SCH ×4 (01:31→21:32)
[2020-03-30 07:11] LABS: Basophils # 0.1 K/mcL (0.0-0.2); Eosinophils # 0.4 K/mcL (0.0-0.6); Eosinophils % 4.5 %; Hematocrit 39.6 % (37.5-50.1); Hemoglobin 13.8 g/dL (12.9-16.9); Immature Granulocytes % 0.7 % (0-4); Lymphocytes # 2.8 K/mcL (0.6-4.6); Lymphocytes % 34.2 %; Mean Corpuscular HGB Conc 34.8 g/dL (31.6-35.5); Mean Corpuscular Hemoglobin 28.9 pg (28.0-33.3); Mean Platelet Volume 9.8 fL (9.4-12.4); Neutrophils # 3.8 K/mcL (1.6-8.9); Platelet Count 297 K/mcL (140-400); Red Blood Count 4.77 M/mcL (4.19-5.50); Red Cell Distribution Width 13.6 % (11.5-14.5); Segmented Neutrophils % 47.6 %; White Blood Count 8.1 K/mcL (4.3-11.1)
[2020-03-30 07:37] LABS: BUN/Creatinine Ratio 13 (6-26); Blood Urea Nitrogen 15 mg/dL (6-20); Calcium 8.3 mg/dL (8.6-10.3); Carbon Dioxide 23 mEq/L (23-29); Chloride 101 mEq/L (98-107); Glucose 340 mg/dL (70-105); Osmolality,Calculated 288 (280-300); Potassium 3.7 mEq/L (3.5-5.1); Sodium 132 mEq/L (136-145); eGFR For African Americans > 60 (> 60); eGFR For Non-African Americans > 60 (> 60)
[2020-03-30] MEDS: Insulin DETEMIR 100 UNIT/ML X5UNITS SUBQ SCH ×2 (09:24→21:50)
[2020-03-30] MEDS: GI Cocktail 40 ML EACH PO SCH ×3 (09:25→21:50)
[2020-03-30] MEDS: Pantoprazole 40 MG VIAL IVP SCH ×2 (09:25→21:50)
[2020-03-30] MEDS: amLODIPine 5 MG TABLET PO SCH (09:25)
[2020-03-30] MEDS: Insulin LISPRO 300 UNITS/3 ML VIAL SUBQ SCH ×3 (09:26→17:32)
[2020-03-30] MEDS: Multivit/Ca/Min/Fe/FA 1 TAB TABLET PO SCH (09:28)
[2020-03-30] MEDS: Lithium Carbonate ER 450 MG TABLET.ER PO SCH (21:49)
[2020-03-30] MEDS: FluPHENAZine 10 MG TABLET PO SCH (21:50)
[2020-03-30] MEDS: OLANZapine 10 MG TAB.RAPDIS PO SCH (21:51)
[2020-03-31] MEDS: Sucralfate 1 GM TABLET PO SCH ×4 (00:37→20:36)
[2020-03-31] MEDS: Insulin DETEMIR 100 UNIT/ML X5UNITS SUBQ SCH ×2 (08:14→21:42)
[2020-03-31] MEDS: GI Cocktail 40 ML EACH PO SCH ×3 (08:14→20:50)
[2020-03-31] MEDS: amLODIPine 5 MG TABLET PO SCH (08:15)
[2020-03-31] MEDS: Pantoprazole 40 MG VIAL IVP SCH ×2 (08:15→20:51)
[2020-03-31] MEDS: Insulin LISPRO 300 UNITS/3 ML VIAL SUBQ SCH ×3 (08:15→17:05)
[2020-03-31] MEDS: Multivit/Ca/Min/Fe/FA 1 TAB TABLET PO SCH (08:47)
[2020-03-31] MEDS: Lithium Carbonate ER 450 MG TABLET.ER PO SCH (20:36)
[2020-03-31] MEDS: OLANZapine 10 MG TAB.RAPDIS PO SCH (20:37)
[2020-03-31] MEDS: FluPHENAZine 10 MG TABLET PO SCH (20:51)
[2020-04-01] MEDS: Sucralfate 1 GM TABLET PO SCH ×4 (00:51→23:17)
[2020-04-01] MEDS: Acetaminophen 325 MG TABLET PO PRN ×2 (02:30→15:05)
[2020-04-01] MEDS: amLODIPine 5 MG TABLET PO SCH (08:38)
[2020-04-01] MEDS: Insulin LISPRO 300 UNITS/3 ML VIAL SUBQ SCH ×4 (08:38→17:58)
[2020-04-01] MEDS: GI Cocktail 40 ML EACH PO SCH ×3 (08:39→21:56)
[2020-04-01] MEDS: Pantoprazole 40 MG VIAL IVP SCH ×2 (08:39→21:55)
[2020-04-01] MEDS: Multivit/Ca/Min/Fe/FA 1 TAB TABLET PO SCH (08:39)
[2020-04-01] MEDS: Insulin DETEMIR 100 UNIT/ML X5UNITS SUBQ SCH ×2 (08:41→21:55)
[2020-04-01] MEDS: FluPHENAZine 10 MG TABLET PO SCH (21:56)
[2020-04-01] MEDS: OLANZapine 10 MG TAB.RAPDIS PO SCH (21:56)
[2020-04-01] MEDS: Lithium Carbonate ER 450 MG TABLET.ER PO SCH (21:56)
[2020-04-02] MEDS: Sucralfate 1 GM TABLET PO SCH ×4 (00:01→21:16)
[2020-04-02] MEDS: *HR* Enoxaparin 40 MG/0.4 ML SYRINGE SQ SCH (05:55)
[2020-04-02] MEDS: Insulin DETEMIR 100 UNIT/ML X5UNITS SUBQ SCH ×2 (08:35→20:48)
[2020-04-02] MEDS: Insulin LISPRO 300 UNITS/3 ML VIAL SUBQ SCH ×6 (08:35→17:17)
[2020-04-02] MEDS: Multivit/Ca/Min/Fe/FA 1 TAB TABLET PO SCH (09:06)
[2020-04-02] MEDS: amLODIPine 5 MG TABLET PO SCH (09:09)
[2020-04-02] MEDS: GI Cocktail 40 ML EACH PO SCH ×3 (09:09→20:49)
[2020-04-02] MEDS: Pantoprazole 40 MG VIAL IVP SCH (09:09)
[2020-04-02] MEDS: Acetaminophen 325 MG TABLET PO PRN ×2 (16:18→23:02)
[2020-04-02] MEDS: FluPHENAZine 10 MG TABLET PO SCH (20:48)
[2020-04-02] MEDS: Lithium Carbonate ER 450 MG TABLET.ER PO SCH (21:17)
[2020-04-02] MEDS: OLANZapine 10 MG TAB.RAPDIS PO SCH (21:17)
[2020-04-03] MEDS: Sucralfate 1 GM TABLET PO SCH ×4 (00:49→21:59)
[2020-04-03] MEDS: *HR* Enoxaparin 40 MG/0.4 ML SYRINGE SQ SCH (05:44)
[2020-04-03] MEDS: Insulin LISPRO 300 UNITS/3 ML VIAL SUBQ SCH ×6 (08:50→17:05)
[2020-04-03] MEDS: amLODIPine 5 MG TABLET PO SCH (08:50)
[2020-04-03] MEDS: GI Cocktail 40 ML EACH PO SCH ×3 (08:50→22:08)
[2020-04-03] MEDS: Multivit/Ca/Min/Fe/FA 1 TAB TABLET PO SCH (10:17)
[2020-04-03] MEDS: Insulin DETEMIR 100 UNIT/ML X5UNITS SUBQ SCH ×2 (10:17→22:03)
[2020-04-03] MEDS: OLANZapine 10 MG TAB.RAPDIS PO SCH (21:59)
[2020-04-03] MEDS: Lithium Carbonate ER 450 MG TABLET.ER PO SCH (21:59)
[2020-04-03] MEDS: FluPHENAZine 10 MG TABLET PO SCH (22:08)
[2020-04-04] MEDS: Sucralfate 1 GM TABLET PO SCH ×2 (01:56→12:25)
[2020-04-04] MEDS: *HR* Enoxaparin 40 MG/0.4 ML SYRINGE SQ SCH (05:22)
[2020-04-04 05:41] LABS: Basophils # 0.1 K/mcL (0.0-0.2); Basophils % 1.1 %; Eosinophils # 0.5 K/mcL (0.0-0.6); Eosinophils % 5.3 %; Hemoglobin 14.2 g/dL (12.9-16.9); Immature Granulocytes % 0.6 % (0-4); Lymphocytes # 4.1 K/mcL (0.6-4.6); Lymphocytes % 46.5 %; Mean Corpuscular Hemoglobin 27.8 pg (28.0-33.3); Mean Corpuscular Volume 84.3 fL (83.0-100.0); Mean Platelet Volume 9.4 fL (9.4-12.4); Monocytes # 0.7 K/mcL (0.0-1.3); Monocytes % 8.3 %; Neutrophils # 3.4 K/mcL (1.6-8.9); Platelet Count 338 K/mcL (140-400); Red Cell Distribution Width 13.7 % (11.5-14.5); Segmented Neutrophils % 38.2 %; White Blood Count 8.8 K/mcL (4.3-11.1)
[2020-04-04 06:04] LABS: BUN/Creatinine Ratio 14 (6-26); Blood Urea Nitrogen 16 mg/dL (6-20); Calcium 8.8 mg/dL (8.6-10.3); Carbon Dioxide 24 mEq/L (23-29); Chloride 104 mEq/L (98-107); Glucose 131 mg/dL (70-105); Magnesium 2.2 mg/dL (1.6-2.6); Osmolality,Calculated 283 (280-300); Phosphorous 3.9 mg/dL (2.7-4.5); Potassium 4.3 mEq/L (3.5-5.1); Sodium 135 mEq/L (136-145); eGFR For African Americans > 60 (> 60); eGFR For Non-African Americans > 60 (> 60)
[2020-04-04] MEDS: Insulin LISPRO 300 UNITS/3 ML VIAL SUBQ SCH ×4 (10:28→12:24)
[2020-04-04] MEDS: Insulin DETEMIR 100 UNIT/ML X5UNITS SUBQ SCH (10:28)
[2020-04-04] MEDS: GI Cocktail 40 ML EACH PO SCH (10:40)
[2020-04-04] MEDS: Multivit/Ca/Min/Fe/FA 1 TAB TABLET PO SCH (10:40)
[2020-04-04] MEDS: amLODIPine 5 MG TABLET PO SCH (10:40)
[2020-04-04 11:28] VITALS: BP 150/94
== END 2020-04-04 16:32 | DRG 178 ==
LOC: EMEROOARM 16:49 → CDU 16:49 → SUATTDRO 23:46 → CDU 03-26 00:30 → 3BNU 03-26 11:17 → SUATTDRO 03-27 13:53
PROVIDERS: ADMIT Internal Medicine; ATTEND Internal Medicine

== ENCOUNTER 2020-04-15 10:46 | Inpatient (IN) ==
[2020-04-15 11:47] LABS: Basophils % 0.5 %; Eosinophils # 0.2 K/mcL (0.0-0.6); Eosinophils % 2.7 %; Hematocrit 42.8 % (37.5-50.1); Hemoglobin 13.9 g/dL (12.9-16.9); Immature Granulocytes % 0.6 % (0-4); Lymphocytes # 1.6 K/mcL (0.6-4.6); Lymphocytes % 18.6 %; Mean Corpuscular HGB Conc 32.5 g/dL (31.6-35.5); Mean Corpuscular Hemoglobin 27.7 pg (28.0-33.3); Mean Corpuscular Volume 85.3 fL (83.0-100.0); Monocytes # 0.6 K/mcL (0.0-1.3); Neutrophils # 6.2 K/mcL (1.6-8.9); Platelet Count 315 K/mcL (140-400); Red Blood Count 5.02 M/mcL (4.19-5.50); Red Cell Distribution Width 13.4 % (11.5-14.5); Segmented Neutrophils % 70.6 %; White Blood Count 8.8 K/mcL (4.3-11.1)
[2020-04-15] MEDS ORDERED: D10% in Water 500 ML IVC SCH (13:00)
[2020-04-15 13:56] LABS: BUN/Creatinine Ratio 12 (6-26); Blood Urea Nitrogen 13 mg/dL (6-20); Calcium 9.3 mg/dL (8.6-10.3); Carbon Dioxide 27 mEq/L (23-29); Chloride 105 mEq/L (98-107); Creatine Kinase 100 Units/L (30-223); Glucose 43 mg/dL (70-105); Osmolality,Calculated 291 (280-300); Potassium 3.2 mEq/L (3.5-5.1); Sodium 142 mEq/L (136-145); Troponin I < 0.03 ng/mL (< 0.04); eGFR For African Americans > 60 (> 60); eGFR For Non-African Americans > 60 (> 60)
[2020-04-15] MEDS ORDERED: Haloperidol Lactate 5 MG/ML VIAL IVP PRN (14:25)
[2020-04-15] MEDS ORDERED: Ondansetron 4 MG/2 ML VIAL IVP PRN (14:27)
[2020-04-15] MEDS ORDERED: Acetaminophen 325 MG TABLET PO PRN (14:27)
[2020-04-15] MEDS ORDERED: Naloxone 0.4 MG/ML INJ IVP PRN (14:27)
[2020-04-15] MEDS ORDERED: D5% in Water 1,000 ML IVC PRN (20:11)
[2020-04-15] MEDS ORDERED: *HR* Dextrose 50 % in Water (Vial) 50 ML VIAL IVP PRN (20:12)
[2020-04-15] MEDS ORDERED: Dextrose Gel 15 GM/37.5 ML TUBE PO PRN ×2 (20:12)
[2020-04-15] MEDS: FluPHENAZine 10 MG TABLET PO SCH (20:48)
[2020-04-15] MEDS: OLANZapine 10 MG TAB.RAPDIS PO SCH (20:50)
[2020-04-15] MEDS: Lithium Carbonate ER 450 MG TABLET.ER PO SCH (20:50)
[2020-04-16] MEDS: Insulin LISPRO 300 UNITS/3 ML VIAL SUBQ SCH ×4 (00:09→20:45)
[2020-04-16] MEDS: Multivit/Ca/Min/Fe/FA 1 TAB TABLET PO SCH (08:51)
[2020-04-16] MEDS: amLODIPine 5 MG TABLET PO SCH (08:52)
[2020-04-16 09:16] LABS: Hematocrit 40.3 % (37.5-50.1); Hemoglobin 13.4 g/dL (12.9-16.9); Mean Corpuscular HGB Conc 33.3 g/dL (31.6-35.5); Mean Corpuscular Hemoglobin 28.3 pg (28.0-33.3); Mean Platelet Volume 9.8 fL (9.4-12.4); Platelet Count 315 K/mcL (140-400); Red Blood Count 4.74 M/mcL (4.19-5.50); Red Cell Distribution Width 13.6 % (11.5-14.5); White Blood Count 5.3 K/mcL (4.3-11.1)
[2020-04-16 09:29] LABS: Estimated Average Glucose 192 mg/dl; Hemoglobin A1C 8.3 %
[2020-04-16 09:45] LABS: Potassium 4.2 mEq/L (3.5-5.1)
[2020-04-16 09:46] LABS: Alanine Aminotransferase 21 Units/L (7-52); Albumin 3.8 g/dL (3.5-5.7); Albumin/Globulin Ratio 1.6 (1.1-2.2); Alkaline Phosphatase 133 Units/L (34-104); Aspartate Amino Transferase 12 Units/L (13-39); BUN/Creatinine Ratio 10 (6-26); Bilirubin,Total 0.5 mg/dL (0.3-1.0); Blood Urea Nitrogen 11 mg/dL (6-20); Calcium 9.2 mg/dL (8.6-10.3); Carbon Dioxide 24 mEq/L (23-29); Chloride 106 mEq/L (98-107); Globulin 2.4 g/dL (2.4-3.5); Glucose 216 mg/dL (70-105); Magnesium 2.1 mg/dL (1.6-2.6); Osmolality,Calculated 290 (280-300); Phosphorous 3.3 mg/dL (2.7-4.5); Sodium 137 mEq/L (136-145); Total Protein 6.2 g/dL (6.4-8.9); eGFR For African Americans > 60 (> 60); eGFR For Non-African Americans > 60 (> 60)
[2020-04-16] MEDS: FluPHENAZine 10 MG TABLET PO SCH (20:42)
[2020-04-16] MEDS: Lithium Carbonate ER 450 MG TABLET.ER PO SCH (20:43)
[2020-04-16] MEDS: OLANZapine 10 MG TAB.RAPDIS PO SCH (20:44)
[2020-04-17 06:30] LABS: BUN/Creatinine Ratio 9 (6-26); Blood Urea Nitrogen 10 mg/dL (6-20); Carbon Dioxide 21 mEq/L (23-29); Chloride 105 mEq/L (98-107); Glucose 315 mg/dL (70-105); Osmolality,Calculated 291 (280-300); Phosphorous 3.5 mg/dL (2.7-4.5); Potassium 4.8 mEq/L (3.5-5.1); Sodium 135 mEq/L (136-145); eGFR For African Americans > 60 (> 60); eGFR For Non-African Americans > 60 (> 60)
[2020-04-17] MEDS: Insulin LISPRO 300 UNITS/3 ML VIAL SUBQ SCH ×4 (09:02→20:27)
[2020-04-17] MEDS: Multivit/Ca/Min/Fe/FA 1 TAB TABLET PO SCH (09:02)
[2020-04-17] MEDS: amLODIPine 5 MG TABLET PO SCH (09:02)
[2020-04-17 09:53] LABS: Hematocrit 40.3 % (37.5-50.1); Hemoglobin 13.2 g/dL (12.9-16.9); Mean Corpuscular HGB Conc 32.8 g/dL (31.6-35.5); Mean Corpuscular Hemoglobin 28.1 pg (28.0-33.3); Mean Corpuscular Volume 85.9 fL (83.0-100.0); Mean Platelet Volume 9.7 fL (9.4-12.4); Platelet Count 281 K/mcL (140-400); Red Blood Count 4.69 M/mcL (4.19-5.50); Red Cell Distribution Width 13.4 % (11.5-14.5); White Blood Count 4.9 K/mcL (4.3-11.1)
[2020-04-17] MEDS: FluPHENAZine 10 MG TABLET PO SCH (20:25)
[2020-04-17] MEDS: OLANZapine 10 MG TAB.RAPDIS PO SCH (20:25)
[2020-04-17] MEDS: Lithium Carbonate ER 450 MG TABLET.ER PO SCH (20:26)
[2020-04-18] MEDS: amLODIPine 5 MG TABLET PO SCH (09:12)
[2020-04-18] MEDS: Insulin LISPRO 300 UNITS/3 ML VIAL SUBQ SCH (09:13)
[2020-04-18] MEDS: Multivit/Ca/Min/Fe/FA 1 TAB TABLET PO SCH (09:25)
[2020-04-18 11:16] VITALS: BP 151/95
== END 2020-04-18 13:18 | disposition home or self-care (01) | DRG 638 ==
LOC: EMEROOARM 10:46 → 2ANU 10:46 → SUATTDRO 14:22 → 2ANU 15:22
PROVIDERS: ADMIT Internal Medicine; ATTEND Internal Medicine

== ENCOUNTER 2020-10-26 15:29 | Observation (INO) ==
[2020-10-26 16:38] LABS: Basophils % 0.1 %; Hematocrit 41.4 % (37.5-50.1); Hemoglobin 14.5 g/dL (12.9-16.9); Immature Granulocytes % 0.6 % (0-4); Lymphocytes # 1.7 K/mcL (0.6-4.6); Lymphocytes % 7.4 %; Mean Corpuscular Hemoglobin 29.4 pg (28.0-33.3); Mean Platelet Volume 10.4 fL (9.4-12.4); Monocytes # 1.5 K/mcL (0.0-1.3); Monocytes % 6.7 %; Platelet Count 346 K/mcL (140-400); Red Blood Count 4.93 M/mcL (4.19-5.50); Red Cell Distribution Width 13.8 % (11.5-14.5); Segmented Neutrophils % 85.2 %
[2020-10-26 16:40] LABS: Neutrophils # 19.3 K/mcL (1.6-8.9); White Blood Count 22.6 K/mcL (4.3-11.1)
[2020-10-26 16:45] LABS: Bacteria,Urine Few per hpf (None-Few); Bilirubin,Urine Negative (Negative); Blood,Urine Negative (Negative); Clarity,Urine Clear (Clear); Color,Urine Light-Yellow (Yellow); Glucose,Urine (UA) >=1000 mg/dL (Normal); Ketones,Urine 20 mg/dL (Negative); Leukocyte Esterase,Urine Negative (Negative); Nitrite,Urine Negative (Negative); Protein,Urine Trace mg/dL (Neg-Trace); RBC,Urine 0-3 per hpf (0-3); Specific Gravity,Urine > 1.030 (1.010-1.025); Urobilinogen,Urine Normal (Normal); WBC,Urine 0-3 per hpf (0-3)
[2020-10-26 16:55] LABS: Amphetamine Screen,Urine Negative ng/mL (Cutoff=1000); Barbiturate Screen,Urine Negative ng/mL (Cutoff=200); Benzodiazepines Screen,Urine Negative ng/mL (Cutoff=200); Cannabinoid Screen,Urine Negative ng/mL (Cutoff = 50); Cocaine Screen,Urine Negative ng/mL (Cutoff= 300); Opiate Screen,Urine Negative ng/mL (Cutoff=300); Phencyclidine Screen,Urine Negative ng/mL (Cutoff=25)
[2020-10-26 16:59] LABS: Acetaminophen < 10 mcg/mL (10-20); Alanine Aminotransferase 9 Units/L (7-52); Albumin 4.2 g/dL (3.5-5.7); Albumin/Globulin Ratio 1.5 (1.1-2.2); Alkaline Phosphatase 150 Units/L (34-104); Aspartate Amino Transferase 8 Units/L (13-39); BUN/Creatinine Ratio 19 (6-26); Bilirubin,Direct 0.2 mg/dL (0.0-0.2); Bilirubin,Indirect 0.7 mg/dL (0.0-1.0); Bilirubin,Total 0.9 mg/dL (0.3-1.0); Blood Urea Nitrogen 26 mg/dL (8-23); Calcium 9.3 mg/dL (8.6-10.3); Carbon Dioxide 25 mEq/L (23-29); Chloride 98 mEq/L (98-107); Ethanol < 10 mg/dL (Less than 10); Globulin 2.8 g/dL (2.4-3.5); Glucose 381 mg/dL (70-105); Osmolality,Calculated 298 (280-300); Potassium 3.9 mEq/L (3.5-5.1); Salicylate < 2.5 mg/dL (15.0-30.0); Sodium 134 mEq/L (136-145); eGFR For African Americans > 60 (> 60); eGFR For Non-African Americans 54 (> 60)
[2020-10-26 17:05] LABS: Chol/HDL Ratio 5.7 (0-4.9); Cholesterol 170 mg/dL (< 200); HDL Cholesterol 30 mg/dL (40-59); LDL Cholesterol,Calculated 108 mg/dL (< 100); Lipase 9 Units/L (11-82); Triglycerides 158 mg/dL (< 150)
[2020-10-26] MEDS ORDERED: Insulin Human Regular 5 UNIT in 0.9 % Sodium Chloride 10 ML IV ONE (18:31)
[2020-10-26] MEDS ORDERED: 0.9 % Sodium Chloride 1,000 ML IVC ONE (18:31)
[2020-10-26] MEDS ORDERED: Isovue-370 500 ML BOTTLE IVP ONE (18:32)
[2020-10-26] MEDS ORDERED: Ondansetron 4 MG/2 ML VIAL IVP ONE (18:33)
[2020-10-26 20:34] LABS: VBG HCO3 27 mEq/L (21-27); VBG PCO2 39 mmHg (41-51); VBG PH 7.44 pH Units (7.32-7.42); VBG PO2 78 mmHg (25-50)
[2020-10-26] MEDS ORDERED: Isovue-370 500 ML BOTTLE PO ONE (21:19)
[2020-10-26] MEDS ORDERED: Naloxone 0.4 MG/ML INJ IVP PRN (23:14)
[2020-10-26] MEDS ORDERED: *HR* HYDROcodone/Acet 5/325 mg TABLET PO PRN (23:14)
[2020-10-26] MEDS ORDERED: Acetaminophen 325 MG TABLET PO PRN (23:14)
[2020-10-26] MEDS ORDERED: Ondansetron 4 MG/2 ML VIAL IVP PRN (23:14)
[2020-10-27] MEDS ORDERED: D5% in Water 1,000 ML IVC PRN (01:04)
[2020-10-27] MEDS ORDERED: Dextrose Gel 15 GM/37.5 ML TUBE PO PRN ×2 (01:04)
[2020-10-27] MEDS ORDERED: *HR* Dextrose 50 % in Water (Vial) 50 ML VIAL IVP PRN (01:04)
[2020-10-27] MEDS ORDERED: Insulin DETEMIR 100 UNIT/ML X5UNITS SUBQ SCH (01:15)
[2020-10-27] MEDS ORDERED: *HR* HYDROcodone/Acet 10/325 mg TABLET PO PRN (02:26)
[2020-10-27] MEDS: 0.9 % Sodium Chloride 1,000 ML IVC SCH ×2 (03:05→11:47)
[2020-10-27 03:08] LABS: Hematocrit 38.2 % (37.5-50.1); Hemoglobin 13.1 g/dL (12.9-16.9); Mean Corpuscular HGB Conc 34.3 g/dL (31.6-35.5); Mean Corpuscular Hemoglobin 28.9 pg (28.0-33.3); Mean Corpuscular Volume 84.1 fL (83.0-100.0); Mean Platelet Volume 11.4 fL (9.4-12.4); Platelet Count 239 K/mcL (140-400); Red Blood Count 4.54 M/mcL (4.19-5.50); Red Cell Distribution Width 14.1 % (11.5-14.5); White Blood Count 17.2 K/mcL (4.3-11.1)
[2020-10-27 03:35] LABS: Alanine Aminotransferase 8 Units/L (7-52); Albumin 3.7 g/dL (3.5-5.7); Albumin/Globulin Ratio 1.6 (1.1-2.2); Alkaline Phosphatase 124 Units/L (34-104); Aspartate Amino Transferase 7 Units/L (13-39); BUN/Creatinine Ratio 20 (6-26); Bilirubin,Total 0.7 mg/dL (0.3-1.0); Blood Urea Nitrogen 23 mg/dL (8-23); Calcium 8.5 mg/dL (8.6-10.3); Carbon Dioxide 24 mEq/L (23-29); Chloride 103 mEq/L (98-107); Globulin 2.3 g/dL (2.4-3.5); Glucose 369 mg/dL (70-105); Magnesium 2.3 mg/dL (1.6-2.6); Osmolality,Calculated 301 (280-300); Potassium 4.2 mEq/L (3.5-5.1); Sodium 136 mEq/L (136-145); eGFR For African Americans > 60 (> 60); eGFR For Non-African Americans > 60 (> 60)
[2020-10-27 03:47] LABS: Estimated Average Glucose 177 mg/dl; Hemoglobin A1C 7.8 %
[2020-10-27] MEDS: Pantoprazole 40 MG VIAL IVP SCH ×2 (05:21→16:44)
[2020-10-27] MEDS ORDERED: lisinopriL 5 MG TABLET PO SCH (09:00)
[2020-10-27] MEDS: Insulin LISPRO 300 UNITS/3 ML VIAL SUBQ SCH ×3 (11:01→16:46)
[2020-10-27] MEDS: amLODIPine 5 MG TABLET PO SCH (11:46)
[2020-10-27] MEDS: Sucralfate 1 GM TABLET PO SCH ×4 (11:46→21:26)
[2020-10-27] MEDS: Insulin DETEMIR 100 UNIT/ML X5UNITS SUBQ SCH ×2 (11:47→21:30)
[2020-10-27] MEDS ORDERED: FluPHENAZine 10 MG TABLET PO SCH (21:00)
[2020-10-27] MEDS ORDERED: Insulin LISPRO 300 UNITS/3 ML VIAL SUBQ SCH (21:00)
[2020-10-27] MEDS ORDERED: OLANZapine 10 MG TAB.RAPDIS PO SCH (21:00)
[2020-10-27] MEDS ORDERED: Lithium Carbonate ER 450 MG TABLET.ER PO SCH (21:00)
[2020-10-28] MEDS: Pantoprazole 40 MG VIAL IVP SCH (05:06)
[2020-10-28 06:07] LABS: Basophils # 0.1 K/mcL (0.0-0.2); Basophils % 0.5 %; Eosinophils # 0.2 K/mcL (0.0-0.6); Eosinophils % 1.8 %; Hematocrit 37.2 % (37.5-50.1); Hemoglobin 12.9 g/dL (12.9-16.9); Immature Granulocytes % 1.1 % (0-4); Lymphocytes # 4.8 K/mcL (0.6-4.6); Lymphocytes % 36.3 %; Mean Corpuscular HGB Conc 34.7 g/dL (31.6-35.5); Mean Corpuscular Hemoglobin 29.3 pg (28.0-33.3); Mean Corpuscular Volume 84.5 fL (83.0-100.0); Mean Platelet Volume 10.5 fL (9.4-12.4); Monocytes # 1.1 K/mcL (0.0-1.3); Monocytes % 8.3 %; Neutrophils # 6.8 K/mcL (1.6-8.9); Platelet Count 297 K/mcL (140-400); Red Cell Distribution Width 13.3 % (11.5-14.5); White Blood Count 13.1 K/mcL (4.3-11.1)
[2020-10-28 06:28] LABS: BUN/Creatinine Ratio 13 (6-26); Blood Urea Nitrogen 14 mg/dL (8-23); Calcium 8.3 mg/dL (8.6-10.3); Carbon Dioxide 24 mEq/L (23-29); Chloride 109 mEq/L (98-107); Glucose 73 mg/dL (70-105); Osmolality,Calculated 289 (280-300); Potassium 3.3 mEq/L (3.5-5.1); Sodium 140 mEq/L (136-145); eGFR For African Americans > 60 (> 60); eGFR For Non-African Americans > 60 (> 60)
[2020-10-28 07:07] VITALS: BP 130/81; PULSE 69; TEMP 98.4; O2SAT 97
[2020-10-28] MEDS: Insulin LISPRO 300 UNITS/3 ML VIAL SUBQ SCH (07:12)
[2020-10-28] MEDS: Sucralfate 1 GM TABLET PO SCH (08:36)
[2020-10-28] MEDS: amLODIPine 5 MG TABLET PO SCH (08:36)
[2020-10-28] MEDS: Insulin DETEMIR 100 UNIT/ML X5UNITS SUBQ SCH (08:37)
[2020-10-28 11:36] LABS: Sodium, Urine 14.8 mEq/L
== END 2020-10-28 11:31 | disposition home or self-care (01) ==
LOC: EMEROOARM 15:29 → 2ANU 15:29 → SUATTDRO 10-27 00:02 → 2ANU 10-27 00:52
PROVIDERS: ADMIT Internal Medicine; ATTEND Internal Medicine

== ENCOUNTER 2020-12-01 14:29 | Inpatient (IN) ==
[2020-12-01 16:00] LABS: Bacteria,Urine Few per hpf (None-Few); Bilirubin,Urine Negative (Negative); Blood,Urine Negative (Negative); Clarity,Urine Clear (Clear); Color,Urine Light-Yellow (Yellow); Glucose,Urine (UA) >=1000 mg/dL (Normal); Hyaline Casts,Urine Few per lpf (None Seen); Ketones,Urine 20 mg/dL (Negative); Leukocyte Esterase,Urine Negative (Negative); Mucus,Urine Moderate per lpf (None-Few); Nitrite,Urine Negative (Negative); PH,Urine 5.5 pH Units (5.0-8.0); Protein,Urine 30 mg/dL (Neg-Trace); RBC,Urine 0-3 per hpf (0-3); Specific Gravity,Urine 1.024 (1.010-1.025); Urobilinogen,Urine Normal (Normal); WBC,Urine 0-3 per hpf (0-3)
[2020-12-01 16:03] LABS: Amphetamine Screen,Urine Negative ng/mL (Cutoff=1000); Barbiturate Screen,Urine Negative ng/mL (Cutoff=200); Benzodiazepines Screen,Urine Negative ng/mL (Cutoff=200); Cannabinoid Screen,Urine Negative ng/mL (Cutoff = 50); Cocaine Screen,Urine Negative ng/mL (Cutoff= 300); Opiate Screen,Urine Negative ng/mL (Cutoff=300); Phencyclidine Screen,Urine Negative ng/mL (Cutoff=25)
[2020-12-01 16:21] LABS: Basophils # 0.1 K/mcL (0.0-0.2); Basophils % 0.9 %; Eosinophils # 0.3 K/mcL (0.0-0.6); Hematocrit 47.1 % (37.5-50.1); Hemoglobin 15.7 g/dL (12.9-16.9); Immature Granulocytes % 0.3 % (0-4); Lymphocytes # 2.4 K/mcL (0.6-4.6); Lymphocytes % 37.6 %; Mean Corpuscular HGB Conc 33.3 g/dL (31.6-35.5); Mean Corpuscular Hemoglobin 28.6 pg (28.0-33.3); Mean Corpuscular Volume 85.9 fL (83.0-100.0); Mean Platelet Volume 11.1 fL (9.4-12.4); Monocytes # 0.5 K/mcL (0.0-1.3); Monocytes % 8.1 %; Neutrophils # 3.1 K/mcL (1.6-8.9); Platelet Count 345 K/mcL (140-400); Red Blood Count 5.48 M/mcL (4.19-5.50); Red Cell Distribution Width 13.4 % (11.5-14.5); Segmented Neutrophils % 48.1 %; White Blood Count 6.4 K/mcL (4.3-11.1)
[2020-12-01 16:37] LABS: Acetaminophen < 10 mcg/mL (10-20); BUN/Creatinine Ratio 7 (6-26); Blood Urea Nitrogen 8 mg/dL (8-23); Calcium 9.3 mg/dL (8.6-10.3); Carbon Dioxide 21 mEq/L (23-29); Chloride 103 mEq/L (98-107); Ethanol < 10 mg/dL (Less than 10); Glucose 266 mg/dL (70-105); Osmolality,Calculated 286 (280-300); Potassium 3.9 mEq/L (3.5-5.1); Salicylate < 2.5 mg/dL (15.0-30.0); Sodium 134 mEq/L (136-145); eGFR For African Americans > 60 (> 60); eGFR For Non-African Americans > 60 (> 60)
[2020-12-01 17:30] LABS: Influenza A PCR Negative (Negative); Influenza B PCR Negative (Negative); Resp. Syncytial Virus PCR Negative (Negative)
[2020-12-01 17:40] LABS: SARS-CoV-2 by PCR (In House) Negative (Negative)
[2020-12-02] MEDS ORDERED: QUEtiapine Fumarate 25 MG TABLET PO PRN (15:15)
[2020-12-02] MEDS ORDERED: hydrOXYzine pamoate 25 MG CAPSULE PO PRN (15:15)
[2020-12-02] MEDS ORDERED: Acetaminophen 325 MG TABLET PO PRN (15:15)
[2020-12-02] MEDS ORDERED: Haloperidol Lactate 5 MG/ML VIAL IM PRN (15:15)
[2020-12-02] MEDS ORDERED: *HR* LORazepam 1 MG TABLET PO PRN (15:15)
[2020-12-02] MEDS ORDERED: MOM Conc 10 ML UD.LIQ PO PRN (15:15)
[2020-12-02] MEDS ORDERED: *HR* LORazepam 2 MG/ML VIAL IM PRN (15:15)
[2020-12-02] MEDS ORDERED: Mag Hydrox/Al Hydrox/Simeth 30 ML UDC PO PRN (15:15)
[2020-12-02] MEDS ORDERED: haloperidoL 5 MG TABLET PO PRN (15:15)
[2020-12-02] MEDS ORDERED: Dextrose Gel 15 GM/37.5 ML TUBE PO PRN ×2 (15:17)
[2020-12-02] MEDS ORDERED: Insulin LISPRO 300 UNITS/3 ML VIAL SUBQ SCH ×2 (16:30→21:00)
[2020-12-02] MEDS: amLODIPine 5 MG TABLET PO SCH (19:25)
[2020-12-02] MEDS: *HR* Metformin 500 MG TABLET PO SCH (19:26)
[2020-12-02] MEDS: lisinopriL 5 MG TABLET PO SCH (19:26)
[2020-12-02] MEDS: Insulin DETEMIR 100 UNIT/ML X5UNITS SUBQ SCH (21:22)
[2020-12-02] MEDS: Lithium Carbonate ER 450 MG TABLET.ER PO SCH (21:22)
[2020-12-02] MEDS: FluPHENAZine 10 MG TABLET PO SCH (21:23)
[2020-12-02] MEDS: OLANZapine 10 MG TAB.RAPDIS PO SCH (21:23)
[2020-12-03] MEDS ORDERED: Sucralfate 1 GM TABLET PO PRN (08:55)
[2020-12-03] MEDS ORDERED: GI Cocktail 40 ML EACH PO PRN (08:55)
[2020-12-03] MEDS: amLODIPine 5 MG TABLET PO SCH (09:54)
[2020-12-03] MEDS: lisinopriL 5 MG TABLET PO SCH (09:54)
[2020-12-03] MEDS: Multivit/Ca/Min/Fe/FA 1 TAB TABLET PO SCH (09:54)
[2020-12-03 10:23] LABS: Estimated Average Glucose 200 mg/dl; Hemoglobin A1C 8.6 %
[2020-12-03] MEDS: Insulin DETEMIR 100 UNIT/ML X5UNITS SUBQ SCH ×2 (15:09→20:27)
[2020-12-03] MEDS: *HR* Metformin 500 MG TABLET PO SCH (16:35)
[2020-12-03] MEDS: Lithium Carbonate ER 450 MG TABLET.ER PO SCH (20:27)
[2020-12-03] MEDS: FluPHENAZine 10 MG TABLET PO SCH (20:28)
[2020-12-03] MEDS: OLANZapine 10 MG TAB.RAPDIS PO SCH (20:28)
[2020-12-04] MEDS: Insulin DETEMIR 100 UNIT/ML X5UNITS SUBQ SCH ×2 (14:01→20:17)
[2020-12-04] MEDS: amLODIPine 5 MG TABLET PO SCH (14:01)
[2020-12-04] MEDS: Multivit/Ca/Min/Fe/FA 1 TAB TABLET PO SCH (14:02)
[2020-12-04] MEDS: lisinopriL 5 MG TABLET PO SCH (14:02)
[2020-12-04] MEDS: *HR* Metformin 500 MG TABLET PO SCH (17:38)
[2020-12-04] MEDS: FluPHENAZine 10 MG TABLET PO SCH (20:17)
[2020-12-04] MEDS: OLANZapine 10 MG TAB.RAPDIS PO SCH (20:17)
[2020-12-04] MEDS: Lithium Carbonate ER 450 MG TABLET.ER PO SCH (20:17)
[2020-12-05] MEDS: amLODIPine 5 MG TABLET PO SCH (08:39)
[2020-12-05] MEDS: lisinopriL 5 MG TABLET PO SCH (08:39)
[2020-12-05] MEDS: Multivit/Ca/Min/Fe/FA 1 TAB TABLET PO SCH (08:39)
[2020-12-05] MEDS: Insulin DETEMIR 100 UNIT/ML X5UNITS SUBQ SCH ×2 (08:39→20:19)
[2020-12-05] MEDS: *HR* Metformin 500 MG TABLET PO SCH (15:35)
[2020-12-05] MEDS: Lithium Carbonate ER 450 MG TABLET.ER PO SCH (20:19)
[2020-12-05] MEDS: OLANZapine 10 MG TAB.RAPDIS PO SCH (20:20)
[2020-12-05] MEDS: FluPHENAZine 10 MG TABLET PO SCH (20:20)
[2020-12-06] MEDS: amLODIPine 5 MG TABLET PO SCH (09:29)
[2020-12-06] MEDS: Insulin DETEMIR 100 UNIT/ML X5UNITS SUBQ SCH ×2 (09:29→20:09)
[2020-12-06] MEDS: Multivit/Ca/Min/Fe/FA 1 TAB TABLET PO SCH (09:29)
[2020-12-06] MEDS: lisinopriL 5 MG TABLET PO SCH (09:30)
[2020-12-06] MEDS: (Dulaglutide [Trulicity] 1.5 MG/0.5 ML Pen.Injctr) SQ SCH ×2 (09:30→14:41)
[2020-12-06] MEDS ORDERED: FluPHENAZine 25 MG/10 ML VIAL IM PRN (13:25)
[2020-12-06] MEDS: *HR* Metformin 500 MG TABLET PO SCH (16:59)
[2020-12-06] MEDS: Lithium Carbonate ER 450 MG TABLET.ER PO SCH (20:08)
[2020-12-06] MEDS: OLANZapine 10 MG TAB.RAPDIS PO SCH (20:09)
[2020-12-06] MEDS: FluPHENAZine 10 MG TABLET PO SCH (20:09)
[2020-12-07] MEDS ORDERED: FluPHENAZine 25 MG/10 ML VIAL IM PRN (08:50)
[2020-12-07] MEDS: Multivit/Ca/Min/Fe/FA 1 TAB TABLET PO SCH (10:01)
[2020-12-07] MEDS: lisinopriL 5 MG TABLET PO SCH (10:01)
[2020-12-07] MEDS: amLODIPine 5 MG TABLET PO SCH (10:01)
[2020-12-07] MEDS: Insulin DETEMIR 100 UNIT/ML X5UNITS SUBQ SCH ×2 (10:19→21:11)
[2020-12-07] MEDS: *HR* Metformin 500 MG TABLET PO SCH (18:18)
[2020-12-07] MEDS: Lithium Carbonate ER 450 MG TABLET.ER PO SCH (21:13)
[2020-12-07] MEDS: FluPHENAZine 10 MG TABLET PO SCH (21:14)
[2020-12-07] MEDS: OLANZapine 10 MG TAB.RAPDIS PO SCH (21:14)
[2020-12-08] MEDS: Insulin DETEMIR 100 UNIT/ML X5UNITS SUBQ SCH ×2 (10:13→10:28)
[2020-12-08] MEDS: amLODIPine 5 MG TABLET PO SCH (10:13)
[2020-12-08] MEDS: lisinopriL 5 MG TABLET PO SCH (10:14)
[2020-12-08] MEDS: Multivit/Ca/Min/Fe/FA 1 TAB TABLET PO SCH (10:14)
[2020-12-08] MEDS: *HR* Metformin 500 MG TABLET PO SCH (17:23)
[2020-12-08] MEDS: FluPHENAZine 10 MG TABLET PO SCH ×2 (22:21→22:47)
[2020-12-08] MEDS: OLANZapine 10 MG TAB.RAPDIS PO SCH ×2 (22:21→22:47)
[2020-12-08] MEDS: Lithium Carbonate ER 450 MG TABLET.ER PO SCH (22:21)
[2020-12-09] MEDS: Insulin DETEMIR 100 UNIT/ML X5UNITS SUBQ SCH ×2 (01:44→08:52)
[2020-12-09] MEDS: lisinopriL 5 MG TABLET PO SCH (08:52)
[2020-12-09] MEDS: amLODIPine 5 MG TABLET PO SCH (08:53)
[2020-12-09] MEDS: Multivit/Ca/Min/Fe/FA 1 TAB TABLET PO SCH (08:53)
[2020-12-09] MEDS: *HR* Metformin 500 MG TABLET PO SCH (16:54)
[2020-12-09] MEDS: OLANZapine 10 MG TAB.RAPDIS PO SCH (21:01)
[2020-12-09] MEDS: FluPHENAZine 10 MG TABLET PO SCH (21:01)
[2020-12-10] MEDS: Insulin DETEMIR 100 UNIT/ML X5UNITS SUBQ SCH ×3 (00:04→21:15)
[2020-12-10] MEDS: Lithium Carbonate ER 450 MG TABLET.ER PO SCH ×2 (00:04→21:17)
[2020-12-10] MEDS: lisinopriL 5 MG TABLET PO SCH (08:52)
[2020-12-10] MEDS: amLODIPine 5 MG TABLET PO SCH (08:57)
[2020-12-10] MEDS: Multivit/Ca/Min/Fe/FA 1 TAB TABLET PO SCH (08:57)
[2020-12-10] MEDS: *HR* Metformin 500 MG TABLET PO SCH (16:19)
[2020-12-10] MEDS: FluPHENAZine 10 MG TABLET PO SCH (21:15)
[2020-12-10] MEDS: OLANZapine 10 MG TAB.RAPDIS PO SCH (21:15)
[2020-12-11] MEDS: lisinopriL 5 MG TABLET PO SCH (08:04)
[2020-12-11] MEDS: Insulin DETEMIR 100 UNIT/ML X5UNITS SUBQ SCH ×2 (08:09→21:17)
[2020-12-11] MEDS: amLODIPine 5 MG TABLET PO SCH (08:15)
[2020-12-11] MEDS: Multivit/Ca/Min/Fe/FA 1 TAB TABLET PO SCH (08:15)
[2020-12-11] MEDS: *HR* Metformin 500 MG TABLET PO SCH (15:54)
[2020-12-11] MEDS: OLANZapine 10 MG TAB.RAPDIS PO SCH (21:20)
[2020-12-11] MEDS: FluPHENAZine 10 MG TABLET PO SCH (21:20)
[2020-12-11] MEDS: Lithium Carbonate ER 450 MG TABLET.ER PO SCH (21:28)
[2020-12-12] MEDS: lisinopriL 5 MG TABLET PO SCH (09:40)
[2020-12-12] MEDS: Multivit/Ca/Min/Fe/FA 1 TAB TABLET PO SCH (09:46)
[2020-12-12] MEDS: amLODIPine 5 MG TABLET PO SCH (09:46)
[2020-12-12 10:07] VITALS: BP 113/86; PULSE 93; TEMP 97.7; O2SAT 97
[2020-12-12] MEDS: Insulin DETEMIR 100 UNIT/ML X5UNITS SUBQ SCH (10:10)
[2020-12-12 14:41] LABS: Basophils # 0.1 K/mcL (0.0-0.2); Basophils % 0.9 %; Eosinophils # 0.7 K/mcL (0.0-0.6); Eosinophils % 9.6 %; Hematocrit 39.9 % (37.5-50.1); Hemoglobin 13.3 g/dL (12.9-16.9); Immature Granulocytes % 0.4 % (0-4); Lymphocytes # 2.8 K/mcL (0.6-4.6); Mean Corpuscular HGB Conc 33.3 g/dL (31.6-35.5); Mean Corpuscular Hemoglobin 28.6 pg (28.0-33.3); Mean Corpuscular Volume 85.8 fL (83.0-100.0); Mean Platelet Volume 10.2 fL (9.4-12.4); Monocytes # 0.6 K/mcL (0.0-1.3); Neutrophils # 2.7 K/mcL (1.6-8.9); Platelet Count 299 K/mcL (140-400); Red Blood Count 4.65 M/mcL (4.19-5.50); Red Cell Distribution Width 13.3 % (11.5-14.5); Segmented Neutrophils % 39.1 %; White Blood Count 6.8 K/mcL (4.3-11.1)
[2020-12-12 14:57] LABS: Alanine Aminotransferase 12 Units/L (7-52); Albumin 3.5 g/dL (3.5-5.7); Albumin/Globulin Ratio 1.6 (1.1-2.2); Alkaline Phosphatase 136 Units/L (34-104); Aspartate Amino Transferase 10 Units/L (13-39); BUN/Creatinine Ratio 8 (6-26); Bilirubin,Total 0.3 mg/dL (0.3-1.0); Blood Urea Nitrogen 9 mg/dL (8-23); Calcium 8.9 mg/dL (8.6-10.3); Carbon Dioxide 26 mEq/L (23-29); Chloride 102 mEq/L (98-107); Globulin 2.2 g/dL (2.4-3.5); Glucose 256 mg/dL (70-105); Osmolality,Calculated 283 (280-300); Potassium 4.3 mEq/L (3.5-5.1); Sodium 133 mEq/L (136-145); Total Protein 5.7 g/dL (6.4-8.9); eGFR For African Americans > 60 (> 60); eGFR For Non-African Americans > 60 (> 60)
[2020-12-12] MEDS: *HR* Metformin 500 MG TABLET PO SCH (17:09)
== END 2020-12-12 17:05 | disposition home or self-care (01) | DRG 885 ==
LOC: EMEROOARM 14:29 → 1ANU 12-02 15:52
PROVIDERS: ADMIT Psychiatry & Neurology Psychiatry; ATTEND Psychiatry & Neurology Psychiatry

== ENCOUNTER 2021-01-30 14:52 | Observation (INO) ==
[2021-01-30 15:34] LABS: Basophils # 0.1 K/mcL (0.0-0.2); Basophils % 1.1 %; Bilirubin,Urine Negative (Negative); Blood,Urine Negative (Negative); Clarity,Urine Clear (Clear); Color,Urine Light-Yellow (Yellow); Eosinophils # 0.6 K/mcL (0.0-0.6); Glucose,Urine (UA) >=1000 mg/dL (Normal); Hematocrit 46.9 % (37.5-50.1); Hemoglobin 15.6 g/dL (12.9-16.9); Immature Granulocytes % 0.2 % (0-4); Ketones,Urine 10 mg/dL (Negative); Leukocyte Esterase,Urine Negative (Negative); Lymphocytes # 4.4 K/mcL (0.6-4.6); Lymphocytes % 48.3 %; Mean Corpuscular HGB Conc 33.3 g/dL (31.6-35.5); Mean Corpuscular Volume 84.1 fL (83.0-100.0); Mean Platelet Volume 10.2 fL (9.4-12.4); Monocytes # 0.7 K/mcL (0.0-1.3); Monocytes % 7.4 %; Neutrophils # 3.2 K/mcL (1.6-8.9); Nitrite,Urine Negative (Negative); Platelet Count 394 K/mcL (140-400); Protein,Urine Negative (Neg-Trace); Red Blood Count 5.58 M/mcL (4.19-5.50); Urobilinogen,Urine Normal (Normal)
[2021-01-30 15:41] LABS: Amphetamine Screen,Urine Negative ng/mL (Cutoff=1000); Barbiturate Screen,Urine Negative ng/mL (Cutoff=200); Benzodiazepines Screen,Urine Negative ng/mL (Cutoff=200); Cannabinoid Screen,Urine Negative ng/mL (Cutoff = 50); Cocaine Screen,Urine Negative ng/mL (Cutoff= 300); Opiate Screen,Urine Negative ng/mL (Cutoff=300); Phencyclidine Screen,Urine Negative ng/mL (Cutoff=25)
[2021-01-30 16:13] LABS: Acetaminophen < 10 mcg/mL (10-20); Alanine Aminotransferase 12 Units/L (7-52); Albumin 4.3 g/dL (3.5-5.7); Albumin/Globulin Ratio 1.7 (1.1-2.2); Alkaline Phosphatase 173 Units/L (34-104); Aspartate Amino Transferase 10 Units/L (13-39); BUN/Creatinine Ratio 10 (6-26); Bilirubin,Direct 0.1 mg/dL (0.0-0.2); Bilirubin,Indirect 0.4 mg/dL (0.0-1.0); Bilirubin,Total 0.5 mg/dL (0.3-1.0); Blood Urea Nitrogen 13 mg/dL (8-23); Calcium 9.8 mg/dL (8.6-10.3); Carbon Dioxide 24 mEq/L (23-29); Chloride 95 mEq/L (98-107); Ethanol < 10 mg/dL (Less than 10); Globulin 2.6 g/dL (2.4-3.5); Glucose 406 mg/dL (70-105); Osmolality,Calculated 291 (280-300); Potassium 3.6 mEq/L (3.5-5.1); Salicylate < 2.5 mg/dL (15.0-30.0); Sodium 132 mEq/L (136-145); Total Protein 6.9 g/dL (6.4-8.9); eGFR For African Americans > 60 (> 60); eGFR For Non-African Americans 59 (> 60)
[2021-01-30 19:46] LABS: Influenza A PCR Negative (Negative); Influenza B PCR Negative (Negative); Resp. Syncytial Virus PCR Negative (Negative)
[2021-01-30 19:48] LABS: SARS-CoV-2 by PCR (In House) Negative (Negative)
[2021-01-30] MEDS ORDERED: 0.9 % Sodium Chloride 1,000 ML IVC ONE (23:35)
[2021-01-30] MEDS ORDERED: Potassium Chloride Elixir 20 MEQ/15 ML UDC PO ONE (23:38)
[2021-01-30] MEDS ORDERED: Insulin Human Regular 10 UNIT in 0.9 % Sodium Chloride 10 ML IV ONE (23:40)
[2021-01-31] MEDS ORDERED: Haloperidol Lactate 5 MG/ML VIAL IM ONE (00:03)
[2021-01-31] MEDS ORDERED: *HR* LORazepam 2 MG/ML VIAL IM ONE (00:03)
[2021-01-31] MEDS ORDERED: Melatonin 3 MG TABLET PO PRN (06:21)
[2021-01-31] MEDS ORDERED: Naloxone 0.4 MG/ML INJ IVP PRN (06:21)
[2021-01-31] MEDS ORDERED: Dextrose Gel 15 GM/37.5 ML TUBE PO PRN ×2 (06:23)
[2021-01-31] MEDS ORDERED: *HR* Dextrose 50 % in Water (Syg) 50 ML SYRINGE IVP PRN (06:23)
[2021-01-31] MEDS ORDERED: D5% in Water 1,000 ML IVC PRN (06:23)
[2021-01-31] MEDS ORDERED: 0.9 % Sodium Chloride 500 ML IVC ONE (06:24)
[2021-01-31] MEDS ORDERED: 0.9 % Sodium Chloride 1,000 ML IVC ONE (07:24)
[2021-01-31] MEDS: Insulin LISPRO 300 UNITS/3 ML VIAL SUBQ SCH ×3 (08:11→16:54)
[2021-01-31 08:57] LABS: Hematocrit 41.8 % (37.5-50.1); Hemoglobin 14.2 g/dL (12.9-16.9); Mean Corpuscular Hemoglobin 28.6 pg (28.0-33.3); Mean Corpuscular Volume 84.3 fL (83.0-100.0); Mean Platelet Volume 10.5 fL (9.4-12.4); Platelet Count 286 K/mcL (140-400); Red Blood Count 4.96 M/mcL (4.19-5.50); White Blood Count 6.6 K/mcL (4.3-11.1)
[2021-01-31] MEDS ORDERED: Insulin DETEMIR 100 UNIT/ML X5UNITS SUBQ SCH (09:00)
[2021-01-31 09:14] LABS: Carbon Dioxide 22 mEq/L (23-29)
[2021-01-31 09:15] LABS: BUN/Creatinine Ratio 12 (6-26); Blood Urea Nitrogen 14 mg/dL (8-23); Calcium 8.7 mg/dL (8.6-10.3); Chloride 103 mEq/L (98-107); Glucose 382 mg/dL (70-105); Magnesium 1.9 mg/dL (1.6-2.6); Osmolality,Calculated 292 (280-300); Phosphorous 3.3 mg/dL (2.7-4.5); Potassium 4.6 mEq/L (3.5-5.1); Sodium 133 mEq/L (136-145); eGFR For African Americans > 60 (> 60); eGFR For Non-African Americans > 60 (> 60)
[2021-01-31 12:41] LABS: Estimated Average Glucose 329 mg/dl; Hemoglobin A1C 13.1 %
[2021-01-31] MEDS: FluPHENAZine 10 MG TABLET PO SCH (19:49)
[2021-01-31] MEDS: OLANZapine 10 MG TAB.RAPDIS PO SCH (19:49)
[2021-01-31] MEDS: Lithium Carbonate ER 450 MG TABLET.ER PO SCH (19:49)
[2021-01-31] MEDS: Insulin DETEMIR 100 UNIT/ML X5UNITS SUBQ SCH (19:52)
[2021-01-31] MEDS ORDERED: Insulin LISPRO 300 UNITS/3 ML VIAL SUBQ SCH (21:00)
[2021-02-01] MEDS: Insulin LISPRO 300 UNITS/3 ML VIAL SUBQ SCH ×5 (08:24→20:33)
[2021-02-01] MEDS: Insulin DETEMIR 100 UNIT/ML X5UNITS SUBQ SCH ×4 (09:47→20:28)
[2021-02-01] MEDS: OLANZapine 10 MG TAB.RAPDIS PO SCH (20:28)
[2021-02-01] MEDS: Lithium Carbonate ER 450 MG TABLET.ER PO SCH (20:28)
[2021-02-01] MEDS: FluPHENAZine 10 MG TABLET PO SCH (20:28)
[2021-02-02 05:20] LABS: Hematocrit 41.1 % (37.5-50.1); Hemoglobin 14.4 g/dL (12.9-16.9); Mean Corpuscular Hemoglobin 29.2 pg (28.0-33.3); Mean Corpuscular Volume 83.4 fL (83.0-100.0); Mean Platelet Volume 10.2 fL (9.4-12.4); Platelet Count 314 K/mcL (140-400); Red Blood Count 4.93 M/mcL (4.19-5.50); Red Cell Distribution Width 14.5 % (11.5-14.5); White Blood Count 9.1 K/mcL (4.3-11.1)
[2021-02-02 05:39] LABS: BUN/Creatinine Ratio 13 (6-26); Blood Urea Nitrogen 12 mg/dL (8-23); Calcium 9.3 mg/dL (8.6-10.3); Carbon Dioxide 24 mEq/L (23-29); Chloride 106 mEq/L (98-107); Glucose 133 mg/dL (70-105); Osmolality,Calculated 284 (280-300); Potassium 3.6 mEq/L (3.5-5.1); Sodium 136 mEq/L (136-145); eGFR For African Americans > 60 (> 60); eGFR For Non-African Americans > 60 (> 60)
[2021-02-02] MEDS: Insulin DETEMIR 100 UNIT/ML X5UNITS SUBQ SCH ×3 (06:54→19:32)
[2021-02-02] MEDS: Insulin LISPRO 300 UNITS/3 ML VIAL SUBQ SCH ×4 (07:00→22:24)
[2021-02-02] MEDS: Lithium Carbonate ER 450 MG TABLET.ER PO SCH (22:24)
[2021-02-02] MEDS: FluPHENAZine 10 MG TABLET PO SCH (22:24)
[2021-02-02] MEDS: OLANZapine 10 MG TAB.RAPDIS PO SCH (22:25)
[2021-02-02] MEDS ORDERED: OLANZapine 10 MG VIAL IM ONE (22:32)
[2021-02-02] MEDS ORDERED: FluPHENAZine 25 MG/10 ML VIAL IM ONE (22:36)
[2021-02-03 05:29] LABS: Hematocrit 41.6 % (37.5-50.1); Hemoglobin 14.3 g/dL (12.9-16.9); Mean Corpuscular HGB Conc 34.4 g/dL (31.6-35.5); Mean Corpuscular Volume 84.4 fL (83.0-100.0); Mean Platelet Volume 9.9 fL (9.4-12.4); Platelet Count 298 K/mcL (140-400); Red Blood Count 4.93 M/mcL (4.19-5.50); Red Cell Distribution Width 14.4 % (11.5-14.5)
[2021-02-03 05:46] LABS: BUN/Creatinine Ratio 13 (6-26); Blood Urea Nitrogen 16 mg/dL (8-23); Carbon Dioxide 22 mEq/L (23-29); Chloride 106 mEq/L (98-107); Glucose 295 mg/dL (70-105); Osmolality,Calculated 288 (280-300); Potassium 4.3 mEq/L (3.5-5.1); Sodium 133 mEq/L (136-145); eGFR For African Americans > 60 (> 60); eGFR For Non-African Americans > 60 (> 60)
[2021-02-03] MEDS ORDERED: lisinopriL 5 MG TABLET PO SCH (09:00)
[2021-02-03] MEDS: Insulin LISPRO 300 UNITS/3 ML VIAL SUBQ SCH ×4 (09:03→20:34)
[2021-02-03] MEDS: amLODIPine 5 MG TABLET PO SCH (09:03)
[2021-02-03] MEDS: Insulin DETEMIR 100 UNIT/ML X5UNITS SUBQ SCH ×2 (09:03→20:34)
[2021-02-03] MEDS: Lithium Carbonate ER 450 MG TABLET.ER PO SCH (20:35)
[2021-02-04] MEDS: Insulin LISPRO 300 UNITS/3 ML VIAL SUBQ SCH ×4 (09:12→20:41)
[2021-02-04] MEDS: amLODIPine 5 MG TABLET PO SCH (09:12)
[2021-02-04] MEDS: Insulin DETEMIR 100 UNIT/ML X5UNITS SUBQ SCH ×2 (09:12→20:41)
[2021-02-04] MEDS: OLANZapine 10 MG TAB.RAPDIS PO SCH (20:41)
[2021-02-04] MEDS: FluPHENAZine 10 MG TABLET PO SCH (20:41)
[2021-02-04] MEDS: Lithium Carbonate ER 450 MG TABLET.ER PO SCH (20:41)
[2021-02-05] MEDS: Insulin LISPRO 300 UNITS/3 ML VIAL SUBQ SCH ×4 (07:43→20:36)
[2021-02-05] MEDS: amLODIPine 5 MG TABLET PO SCH (07:44)
[2021-02-05] MEDS: Insulin DETEMIR 100 UNIT/ML X5UNITS SUBQ SCH ×2 (07:44→21:47)
[2021-02-05] MEDS: Lithium Carbonate ER 450 MG TABLET.ER PO SCH (22:58)
[2021-02-05] MEDS: OLANZapine 10 MG TAB.RAPDIS PO SCH (22:58)
[2021-02-05] MEDS: FluPHENAZine 10 MG TABLET PO SCH (22:58)
[2021-02-06] MEDS: Insulin LISPRO 300 UNITS/3 ML VIAL SUBQ SCH ×4 (09:30→21:13)
[2021-02-06] MEDS: Insulin DETEMIR 100 UNIT/ML X5UNITS SUBQ SCH ×2 (11:01→21:14)
[2021-02-06] MEDS: amLODIPine 5 MG TABLET PO SCH (11:02)
[2021-02-06] MEDS ORDERED: Haloperidol Lactate 5 MG/ML VIAL IM PRN (15:00)
[2021-02-06] MEDS: OLANZapine 10 MG TAB.RAPDIS PO SCH (19:58)
[2021-02-06] MEDS: Lithium Carbonate ER 450 MG TABLET.ER PO SCH (19:58)
[2021-02-06] MEDS: FluPHENAZine 10 MG TABLET PO SCH (19:58)
[2021-02-07] MEDS: Insulin LISPRO 300 UNITS/3 ML VIAL SUBQ SCH ×4 (07:50→20:56)
[2021-02-07] MEDS: amLODIPine 5 MG TABLET PO SCH (08:16)
[2021-02-07] MEDS: Insulin DETEMIR 100 UNIT/ML X5UNITS SUBQ SCH ×2 (08:17→21:00)
[2021-02-07] MEDS: Lithium Carbonate ER 450 MG TABLET.ER PO SCH (20:56)
[2021-02-07] MEDS: FluPHENAZine 10 MG TABLET PO SCH (20:56)
[2021-02-07] MEDS: OLANZapine 10 MG TAB.RAPDIS PO SCH (20:56)
[2021-02-08] MEDS: amLODIPine 5 MG TABLET PO SCH (09:47)
[2021-02-08] MEDS: Insulin LISPRO 300 UNITS/3 ML VIAL SUBQ SCH ×4 (09:47→23:01)
[2021-02-08] MEDS: Insulin DETEMIR 100 UNIT/ML X5UNITS SUBQ SCH ×2 (09:47→23:02)
[2021-02-08] MEDS: Lithium Carbonate ER 450 MG TABLET.ER PO SCH (23:01)
[2021-02-08] MEDS: FluPHENAZine 10 MG TABLET PO SCH (23:02)
[2021-02-08] MEDS: OLANZapine 10 MG TAB.RAPDIS PO SCH (23:02)
[2021-02-09] MEDS: amLODIPine 5 MG TABLET PO SCH (07:35)
[2021-02-09] MEDS: Insulin DETEMIR 100 UNIT/ML X5UNITS SUBQ SCH ×2 (07:35→21:12)
[2021-02-09] MEDS: Insulin LISPRO 300 UNITS/3 ML VIAL SUBQ SCH ×4 (07:35→21:11)
[2021-02-09] MEDS ORDERED: Insulin DETEMIR 100 UNIT/ML X5UNITS SUBQ SCH (09:00)
[2021-02-09] MEDS: OLANZapine 10 MG TAB.RAPDIS PO SCH (21:33)
[2021-02-09] MEDS: Lithium Carbonate ER 450 MG TABLET.ER PO SCH (21:33)
[2021-02-09] MEDS: FluPHENAZine 10 MG TABLET PO SCH (21:33)
[2021-02-10] MEDS: Insulin DETEMIR 100 UNIT/ML X5UNITS SUBQ SCH ×2 (07:47→21:28)
[2021-02-10] MEDS: Insulin LISPRO 300 UNITS/3 ML VIAL SUBQ SCH ×4 (07:47→21:27)
[2021-02-10] MEDS: amLODIPine 5 MG TABLET PO SCH (07:49)
[2021-02-10] MEDS: Lithium Carbonate ER 450 MG TABLET.ER PO SCH (21:27)
[2021-02-10] MEDS: OLANZapine 10 MG TAB.RAPDIS PO SCH (21:28)
[2021-02-10] MEDS: FluPHENAZine 10 MG TABLET PO SCH (21:28)
[2021-02-11] MEDS: Insulin DETEMIR 100 UNIT/ML X5UNITS SUBQ SCH ×2 (08:15→19:51)
[2021-02-11] MEDS: amLODIPine 5 MG TABLET PO SCH (08:15)
[2021-02-11] MEDS: Insulin LISPRO 300 UNITS/3 ML VIAL SUBQ SCH ×4 (08:15→19:51)
[2021-02-11] MEDS: OLANZapine 10 MG TAB.RAPDIS PO SCH (19:51)
[2021-02-11] MEDS: FluPHENAZine 10 MG TABLET PO SCH (19:51)
[2021-02-11] MEDS: Lithium Carbonate ER 450 MG TABLET.ER PO SCH (19:51)
[2021-02-12] MEDS: Insulin LISPRO 300 UNITS/3 ML VIAL SUBQ SCH ×5 (08:59→20:18)
[2021-02-12] MEDS: amLODIPine 5 MG TABLET PO SCH (09:00)
[2021-02-12] MEDS: Insulin DETEMIR 100 UNIT/ML X5UNITS SUBQ SCH ×2 (09:00→20:19)
[2021-02-12] MEDS: Lithium Carbonate ER 450 MG TABLET.ER PO SCH (20:19)
[2021-02-12] MEDS: OLANZapine 10 MG TAB.RAPDIS PO SCH (20:20)
[2021-02-12] MEDS: FluPHENAZine 10 MG TABLET PO SCH (20:20)
[2021-02-13] MEDS: Insulin LISPRO 300 UNITS/3 ML VIAL SUBQ SCH ×4 (08:45→19:14)
[2021-02-13] MEDS: Insulin DETEMIR 100 UNIT/ML X5UNITS SUBQ SCH ×2 (08:45→19:14)
[2021-02-13] MEDS: amLODIPine 5 MG TABLET PO SCH (08:48)
[2021-02-13] MEDS: Lithium Carbonate ER 450 MG TABLET.ER PO SCH (19:13)
[2021-02-13] MEDS: OLANZapine 10 MG TAB.RAPDIS PO SCH (19:14)
[2021-02-13] MEDS: FluPHENAZine 10 MG TABLET PO SCH (19:14)
[2021-02-14] MEDS: Insulin LISPRO 300 UNITS/3 ML VIAL SUBQ SCH ×3 (07:21→16:30)
[2021-02-14] MEDS: Insulin DETEMIR 100 UNIT/ML X5UNITS SUBQ SCH ×2 (07:21→12:27)
[2021-02-14] MEDS: amLODIPine 5 MG TABLET PO SCH (07:21)
[2021-02-15] MEDS: Insulin DETEMIR 100 UNIT/ML X5UNITS SUBQ SCH ×3 (07:19→20:34)
[2021-02-15] MEDS: Lithium Carbonate ER 450 MG TABLET.ER PO SCH ×2 (07:19→20:34)
[2021-02-15] MEDS: Insulin LISPRO 300 UNITS/3 ML VIAL SUBQ SCH ×5 (07:19→20:34)
[2021-02-15] MEDS: FluPHENAZine 10 MG TABLET PO SCH ×2 (07:21→20:35)
[2021-02-15] MEDS: OLANZapine 10 MG TAB.RAPDIS PO SCH ×2 (07:21→20:35)
[2021-02-15] MEDS: amLODIPine 5 MG TABLET PO SCH (08:06)
[2021-02-16] MEDS: Insulin LISPRO 300 UNITS/3 ML VIAL SUBQ SCH ×4 (07:56→19:08)
[2021-02-16] MEDS: Insulin DETEMIR 100 UNIT/ML X5UNITS SUBQ SCH ×2 (07:57→19:09)
[2021-02-16] MEDS: amLODIPine 5 MG TABLET PO SCH (07:57)
[2021-02-16] MEDS: Lithium Carbonate ER 450 MG TABLET.ER PO SCH (19:07)
[2021-02-16] MEDS: FluPHENAZine 10 MG TABLET PO SCH (19:08)
[2021-02-16] MEDS: OLANZapine 10 MG TAB.RAPDIS PO SCH (19:09)
[2021-02-17] MEDS: Insulin DETEMIR 100 UNIT/ML X5UNITS SUBQ SCH ×3 (07:57→20:08)
[2021-02-17] MEDS: Insulin LISPRO 300 UNITS/3 ML VIAL SUBQ SCH ×4 (07:57→20:08)
[2021-02-17] MEDS: amLODIPine 5 MG TABLET PO SCH (07:57)
[2021-02-17] MEDS: Lithium Carbonate ER 450 MG TABLET.ER PO SCH (20:08)
[2021-02-17] MEDS: FluPHENAZine 10 MG TABLET PO SCH (20:09)
[2021-02-17] MEDS: OLANZapine 10 MG TAB.RAPDIS PO SCH (20:09)
[2021-02-18] MEDS: amLODIPine 5 MG TABLET PO SCH (07:37)
[2021-02-18] MEDS: Insulin LISPRO 300 UNITS/3 ML VIAL SUBQ SCH ×4 (07:37→19:30)
[2021-02-18] MEDS: Insulin DETEMIR 100 UNIT/ML X5UNITS SUBQ SCH ×2 (15:10→19:30)
[2021-02-18] MEDS: Lithium Carbonate ER 450 MG TABLET.ER PO SCH (19:30)
[2021-02-18] MEDS: FluPHENAZine 10 MG TABLET PO SCH (19:30)
[2021-02-18] MEDS: OLANZapine 10 MG TAB.RAPDIS PO SCH (19:31)
[2021-02-19] MEDS: Insulin LISPRO 300 UNITS/3 ML VIAL SUBQ SCH (08:00)
[2021-02-19] MEDS: amLODIPine 5 MG TABLET PO SCH (08:00)
[2021-02-19] MEDS: Insulin DETEMIR 100 UNIT/ML X5UNITS SUBQ SCH ×3 (09:22→16:36)
[2021-02-19] MEDS: *HR* Metformin 500 MG TABLET PO SCH (15:32)
[2021-02-19] MEDS: Lithium Carbonate ER 450 MG TABLET.ER PO SCH (19:21)
[2021-02-19] MEDS: FluPHENAZine 10 MG TABLET PO SCH (19:21)
[2021-02-19] MEDS: OLANZapine 10 MG TAB.RAPDIS PO SCH (19:22)
[2021-02-20] MEDS: amLODIPine 5 MG TABLET PO SCH (07:13)
[2021-02-20] MEDS: *HR* Metformin 500 MG TABLET PO SCH ×2 (07:13→16:46)
[2021-02-20] MEDS: Insulin DETEMIR 100 UNIT/ML X5UNITS SUBQ SCH ×2 (07:13→20:34)
[2021-02-20] MEDS: Lithium Carbonate ER 450 MG TABLET.ER PO SCH (20:34)
[2021-02-20] MEDS: FluPHENAZine 10 MG TABLET PO SCH (20:35)
[2021-02-20] MEDS: OLANZapine 10 MG TAB.RAPDIS PO SCH (20:35)
[2021-02-21] MEDS: *HR* Metformin 500 MG TABLET PO SCH ×2 (07:17→16:44)
[2021-02-21] MEDS: amLODIPine 5 MG TABLET PO SCH (07:17)
[2021-02-21] MEDS: Insulin DETEMIR 100 UNIT/ML X5UNITS SUBQ SCH ×2 (07:17→19:57)
[2021-02-21] MEDS: OLANZapine 10 MG TAB.RAPDIS PO SCH (19:57)
[2021-02-21] MEDS: Lithium Carbonate ER 450 MG TABLET.ER PO SCH (19:57)
[2021-02-21] MEDS: FluPHENAZine 10 MG TABLET PO SCH (19:57)
[2021-02-22] MEDS: amLODIPine 5 MG TABLET PO SCH (08:38)
[2021-02-22] MEDS: *HR* Metformin 500 MG TABLET PO SCH (08:38)
[2021-02-22] MEDS: Insulin DETEMIR 100 UNIT/ML X5UNITS SUBQ SCH (08:51)
[2021-02-22 11:58] VITALS: BP 135/84; PULSE 64; TEMP 98.2; O2SAT 100
== END 2021-02-22 15:55 ==
LOC: EMEROOARM 14:52 → 3BNU 14:52 → SUATTDRO 01-31 06:29 → 3BNU 01-31 07:39
PROVIDERS: ADMIT Internal Medicine; ATTEND Internal Medicine